=== PATIENT | male | born 1975 | race African-American/Black ===

== ENCOUNTER 2016-03-12 18:03 | Emergency (ER) | payer OTHER ==
[2016-03-12] MEDS ORDERED: IBUPROFEN 800 MG TABLET PO ONE (19:00)
[2016-03-12] MEDS ORDERED: DIPHENHYDRAMINE HCL 25 MG CAPSULE PO ONE (19:00)
--- NOTE | 2016-03-12 19:00 | ER Document Report ---
ED Medical Screen (RME) - General Stated Complaint: HEAD PAIN Mode of Arrival: Ambulatory Information source: Patient Notes: Pt presents with c/o migraine for his chronic migraines. Reports he is light sensitive. Denies f/n/v/d. Denies trauma. TRAVEL OUTSIDE OF THE [place] IN LAST 30 DAYS: No - Related Data Allergies/Adverse Reactions: No Known Allergies Allergy (Verified 12/20/15 15:56) Past Medical History - Past Medical History Cardiac Medical History: Reports: Hx Hypertension - 2 YRS AGO Denies: Hx Atrial Fibrillation, Hx Congestive Heart Failure, Hx Coronary Artery Disease, Hx DVT, Hx Heart Attack, Hx Hypercholesterolemia, Hx Peripheral Vascular Disease, Hx Pulmonary Embolism Pulmonary Medical History: Reports: Hx Asthma - SINCE 12 YRS OLD Neurological Medical History: Reports: Hx Migraine. Denies: Hx Cerebrovascular Accident, Hx Seizures Endocrine Medical History: Denies: Hx Diabetes Mellitus Type 1, Hx Diabetes Mellitus Type 2, Hx Graves' Disease, Hx Hyperthyroidism, Hx Hypothyroidism GI Medical History: Denies: Hx Hepatitis Psychiatric Medical History: Reports: Hx Attention Deficit Hyperactivity Disorder, Hx Post Traumatic Stress Disorder Infectious Medical History: Denies: Hx Hepatitis Past Surgical History: Reports: Hx Orthopedic Surgery - left knee X3, right knee , bilateral carpal tunnel - Immunizations Hx Diphtheria, Pertussis, Tetanus Vaccination: Yes Physical Exam - Vital signs Vitals: Temp Pulse Resp BP Pulse Ox 98.6 F 74 20 121/61 97 03/12/16 18:33 03/12/16 18:33 03/12/16 18:33 03/12/16 18:33 03/12/16 18:33 Course - Vital Signs Vital signs: Temp Pulse Resp BP Pulse Ox 98.6 F 74 20 121/61 97 03/12/16 18:33 03/12/16 18:33 03/12/16 18:33 03/12/16 18:33 03/12/16 18:33
[2016-03-12] MEDS ORDERED: ONDANSETRON HCL INJ/PF 4 MG/2 ML SDV IV ONE (21:36)
[2016-03-12] MEDS ORDERED: PROMETHAZINE HCL INJ 25 MG/1 ML VIAL IM ONE (21:36)
[2016-03-12] MEDS ORDERED: NORMAL SALINE 1000 ML 1,000 ML IV ONE (21:36)
[2016-03-12] MEDS ORDERED: PROCHLORPERAZINE EDISYLATE INJ 10 MG/2 ML VIAL IV ONE (21:36)
--- NOTE | 2016-03-12 21:36 | ER Document Report ---
ED Headache - General Mode of Arrival: Ambulatory Information source: Patient TRAVEL OUTSIDE OF THE [place] IN LAST 30 DAYS: No - HPI Patient complains to provider of: Headache, "Migraine" Patient reports: Occasional migraines Onset: Other - earlier this week Timing: Still present Associated symptoms: Other - see above - General Chief Complaint: Headache Stated Complaint: HEAD PAIN Notes: 40 year old male with history of migraines presents to the ED complaining of having his third migraine this week. Patient states that it has been some time since he had his last episode. Patient state that his headache is not better after receiving medication and claims that phenegran and dilaudid has helped in the past. Patient is complaining that he will not be able to sleep in his current state. Patient also complains of vomiting yesterday while at [employer]. ( ANTONIETTA HOOK) - Related Data Allergies/Adverse Reactions: No Known Allergies Allergy (Verified 03/12/16 19:00) Past Medical History - General Information source: Patient - Social History Smoking Status: Never Smoker Chew tobacco use (# tins/day): No Frequency of alcohol use: None Drug Abuse: None Family History: Reviewed & Not Pertinent, Other - Kidney stones Patient has suicidal ideation: No Patient has homicidal ideation: No - Past Medical History Cardiac Medical History: Reports: Hx Hypertension - 2 YRS AGO Pulmonary Medical History: Reports: Hx Asthma - SINCE 12 YRS OLD Neurological Medical History: Reports: Hx Migraine Psychiatric Medical History: Reports: Hx Attention Deficit Hyperactivity Disorder, Hx Post Traumatic Stress Disorder Past Surgical History: Reports: Hx Orthopedic Surgery - left knee X3, right knee , bilateral carpal tunnel - Immunizations Hx Diphtheria, Pertussis, Tetanus Vaccination: Yes Review of Systems - Review of Systems Constitutional: No symptoms reported EENT: No symptoms reported Cardiovascular: No symptoms reported Respiratory: No symptoms reported Gastrointestinal: See HPI, Vomiting Genitourinary: No symptoms reported Male Genitourinary: No symptoms reported Musculoskeletal: No symptoms reported Skin: No symptoms reported Hematologic/Lymphatic: No symptoms reported Neurological/Psychological: See HPI, Headaches - "migraine" -: Yes All other systems reviewed and negative Physical Exam - Vital signs Interpretation: Normal - General General appearance: Alert, Other - appears uncomfortable In distress: None - HEENT Head: Normocephalic, Atraumatic Eyes: Normal Extraocular movements intact: Yes Pupils: PERRL - Respiratory Respiratory status: No respiratory distress Breath sounds: Normal - Cardiovascular Rhythm: Regular Heart sounds: Normal auscultation - Abdominal Inspection: Normal - Back Back: Normal - Extremities General upper extremity: Normal inspection, Normal ROM General lower extremity: Normal inspection, Normal ROM - Neurological Neuro grossly intact: Yes Cognition: Normal Orientation: AAOx4 [place] Coma Scale Eye Opening: Spontaneous [place] Coma Scale Verbal: Oriented [place] Coma Scale Motor: Obeys Commands [place] Coma Scale Total: 15 Speech: Normal - Psychological Associated symptoms: Normal affect, Normal mood - Skin Skin Temperature: Warm Skin Moisture: Dry Skin Color: Normal Course - Re-evaluation Re-evalutation: 03/12/16 22:31 Patient feels better after medication. This is his typical migraine syndrome. No headache at this time. Patient will be discharged home and is to take Zofran , Reglan, Compazine as needed for headache. She is to follow-up with his doctor. Stable for discharge. (DOMI FUENTES) - Vital Signs Vital signs: Temp Pulse Resp BP Pulse Ox 97.4 F 51 L 16 112/63 95 03/12/16 23:19 03/12/16 23:19 03/12/16 23:19 03/12/16 23:19 03/12/16 23:19 (ANTONIETTA HOOK) (DOMI FUENTES) Discharge - Discharge Clinical Impression: Headache Qualifiers: Headache type: unspecified Headache chronicity pattern: acute headache Intractability: not intractable Qualified Code(s): R51 - Headache Condition: Stable Disposition: HOME, SELF-CARE Instructions: Headache ([facility]) Prescriptions: Metoclopramide HCl [Reglan 10 mg Tablet] 1 - 2 tab PO ASDIR PRN #25 tablet PRN Reason: Ondansetron [Zofran Odt 4 mg Tablet] 1 - 2 tab PO Q4H PRN #15 tab.rapdis PRN Reason: For Nausea/Vomiting Prochlorperazine Maleate [Compazine 10 mg Tablet] 10 mg PO ASDIR PRN #10 tablet PRN Reason: Scribe Attestation: 03/13/16 03:24 I personally performed the services described in the documentation, reviewed and edited the documentation which was dictated to the scribe in my presence, and it accurately records my words and actions. (DOMI FUENTES) Scribe Documentation - Scribe Written by Ashiaibe:: David Wyatt, 03/12/2016 21:43 acting as scribe for :: Susana
[2016-03-12 23:21] VITALS: BP 112/63
== END 2016-03-12 23:21 | disposition home or self-care (01) ==
LOC: ER 18:03
DX: G43.909 Migraine, unspecified, not intractable, without status migrainosus (principal); I10 Essential (primary) hypertension; J45.909 Unspecified asthma, uncomplicated
CPT/HCPCS: 99283; 96372; 96361; 96374; 96375; J0780; J2550; J2405; J7030

== ENCOUNTER 2016-03-20 03:24 | Emergency (ER) | payer OTHER ==
[2016-03-20 06:01] LABS: ABSOLUTE BASOPHILS # (AUTO) 0.1 10^3/uL (0.0-0.2); ABSOLUTE EOSINOPHILS # (AUTO) 0.1 10^3/uL (0.0-0.6); ABSOLUTE LYMPHOCYTES (AUTO) 1.7 10^3/uL (0.5-4.7); ABSOLUTE MONOCYTES (AUTO) 0.7 10^3/uL (0.1-1.4); ABSOLUTE NEUT (AUTO) 5.3 10^3/uL (1.7-8.2); BASOPHILS % (AUTO) 0.9 % (0-2); EOSINOPHILS % (AUTO) 1.1 % (0-6); HEMATOCRIT 42.3 % (37.9-51.0); HGB HCT DIFFERENCE -0.3; LYMPHOCYTES % (AUTO) 21.5 % (13-45); MEAN CORPUSCULAR HEMOGLOBIN 29.4 pg (27.0-33.4); MEAN CORPUSCULAR VOLUME 89 fl (80-97); RED BLOOD COUNT 4.75 10^6/uL (4.35-5.55); RED CELL DISTRIBUTION WIDTH 14.2 % (11.5-14.0); SEGMENTED NEUTROPHILS % (AUTO) 67.5 % (42-78); WHITE BLOOD COUNT 7.9 10^3/uL (4.0-10.5)
[2016-03-20 06:11] LABS: APPEARANCE,URINE CLEAR; BILIRUBIN,URINE NEGATIVE (NEGATIVE); GLUCOSE, URINE NEGATIVE (NEGATIVE); KETONES,URINE NEGATIVE (NEGATIVE); LEUKOCYTE ESTERASE,URINE NEGATIVE (NEGATIVE); NITRITE,URINE NEGATIVE (NEGATIVE); PROTEIN,URINE NEGATIVE (NEGATIVE); URINE SPECIFIC GRAVITY 1.016; UROBILINOGEN,URINE NEGATIVE mg/dL (<2.0)
[2016-03-20 06:15] LABS: ALANINE AMINOTRANSFERASE 64 U/L (21-72); ALBUMIN 4.8 g/dL (3.5-5.0); ALKALINE PHOSPHATASE 73 U/L (38-126); ANION GAP 11 (5-19); ASPARTATE AMINO TRANSFERASE 47 U/L (17-59); BILIRUBIN,TOTAL 0.9 mg/dL (0.2-1.3); BLOOD UREA NITROGEN 20 mg/dL (7-20); CARBON DIOXIDE 26 mmol/L (22-30); CHLORIDE 101 mmol/L (98-107); CREATININE RESULT 1.37 mg/dL (0.52-1.25); GLUCOSE 76 mg/dL (75-110); LIPASE 85.9 U/L (23-300); POTASSIUM 5.1 mmol/L (3.6-5.0); SODIUM 138.4 mmol/L (137-145); TOTAL PROTEIN 7.9 g/dL (6.3-8.2)
[2016-03-20] MEDS ORDERED: KETOROLAC TROMETHAMINE 60 MG/2 ML SDV IM ONE (06:29)
--- NOTE | 2016-03-20 06:31 | ER Document Report ---
ED General - General Chief Complaint: Abdominal Pain Stated Complaint: ABDOMINAL PAIN Mode of Arrival: Ambulatory Information source: Patient Notes: 40-year-old male history of kidney stones presents with complaints of right flank pain rating to his [facility]. Patient denies any fevers chills . pt admits ot nausea and vomiting with diarrhea . Patient has had multiple similar episodes for which a diagnosis has not been found notes he is supposed to have follow-up in April TRAVEL OUTSIDE OF THE [place] IN LAST 30 DAYS: No - HPI Onset: Just prior to arrival Onset/Duration: Sudden Quality of pain: Sharp Severity: Mild Pain Level: 1 Associated symptoms: Diarrhea, Nausea, Vomiting Exacerbated by: Denies Relieved by: Denies Similar symptoms previously: Yes Recently seen / treated by doctor: Yes - Related Data Allergies/Adverse Reactions: No Known Allergies Allergy (Verified 03/12/16 19:00) Past Medical History - Social History Smoking Status: Never Smoker Cigarette use (# per day): No Chew tobacco use (# tins/day): No Smoking Education Provided: No Frequency of alcohol use: None Drug Abuse: None Family History: Reviewed & Not Pertinent, Other - Kidney stones Patient has suicidal ideation: No Patient has homicidal ideation: No - Past Medical History Cardiac Medical History: Reports: Hx Hypertension - 2 YRS AGO Denies: Hx Atrial Fibrillation, Hx Congestive Heart Failure, Hx Coronary Artery Disease, Hx DVT, Hx Heart Attack, Hx Hypercholesterolemia, Hx Peripheral Vascular Disease, Hx Pulmonary Embolism Pulmonary Medical History: Reports: Hx Asthma - SINCE 12 YRS OLD Neurological Medical History: Reports: Hx Migraine. Denies: Hx Cerebrovascular Accident, Hx Seizures Endocrine Medical History: Denies: Hx Diabetes Mellitus Type 1, Hx Diabetes Mellitus Type 2, Hx Graves' Disease, Hx Hyperthyroidism, Hx Hypothyroidism Renal/ Medical History: Denies: Hx Peritoneal Dialysis GI Medical History: Denies: Hx Hepatitis Psychiatric Medical History: Reports: Hx Attention Deficit Hyperactivity Disorder, Hx Post Traumatic Stress Disorder Infectious Medical History: Denies: Hx Hepatitis Past Surgical History: Reports: Hx Orthopedic Surgery - left knee X3, right knee , bilateral carpal tunnel - Immunizations Hx Diphtheria, Pertussis, Tetanus Vaccination: Yes Review of Systems - Review of Systems Notes: REVIEW OF SYSTEMS: CONSTITUTIONAL : Denies fever, chills, or sweats. Denies recent illness. EENT: Denies eye, ear, throat, or mouth pain or symptoms. Denies nasal or sinus congestion or discharge. Denies throat, tongue, or mouth swelling or difficulty swallowing. CARDIOVASCULAR: Denies chest pain. Denies palpitations or racing or irregular heart beat. Denies ankle edema. RESPIRATORY: Denies cough, cold, or chest congestion. Denies shortness of breath, difficulty breathing, or wheezing. GASTROINTESTINAL: Admits to abdominal pain nausea vomiting diarrhea GENITOURINARY: Denies difficulty urinating, painful urination, burning, frequency, blood in urine, or discharge. MUSCULOSKELETAL: Denies back or neck pain or stiffness. Denies joint pain or swelling. SKIN: Denies rash, lesions or sores. HEMATOLOGIC : Denies easy bruising or bleeding. LYMPHATIC: Denies swollen, enlarged glands. NEUROLOGICAL: Denies confusion or altered mental status. Denies passing out or loss of consciousness. Denies dizziness or lightheadedness. Denies headache. Denies weakness or paralysis or loss of use of either side. Denies problems with gait or speech. Denies sensory loss, numbness, or tingling. Denies seizures. PSYCHIATRIC: Denies anxiety or stress. Denies depression, suicidal ideation, or homicidal ideation. ALL OTHER SYSTEMS REVIEWED AND NEGATIVE. Dictation was performed using [employer] voice recognition software PHYSICAL EXAMINATION: GENERAL: Well-appearing, well-nourished and in very mild distress HEAD: Atraumatic, normocephalic. EYES: Pupils equal round and reactive to light, extraocular movements intact, sclera anicteric, conjunctiva are normal. ENT: Nares patent, oropharynx clear without exudates. Moist mucous membranes. NECK: Normal range of motion, supple without lymphadenopathy LUNGS: Breath sounds clear to auscultation bilaterally and equal. No wheezes rales or rhonchi. HEART: Regular rate and rhythm without murmurs ABDOMEN: Soft, nontender, nondistended abdomen. No guarding, no rebound. No masses appreciated. Musculoskeletal: Normal range of motion, no pitting or edema. No cyanosis. NEUROLOGICAL: Cranial nerves grossly intact. Normal speech, normal gait. Normal sensory, motor exams PSYCH: Normal mood, normal affect. SKIN: Warm, Dry, normal turgor, no rashes or lesions noted. Course - Re-evaluation Re-evalutation: 03/20/16 06:31 Physical examination notes no acute abnormality, lab work notes again no signs of any infectious process or kidney stone. CT will be repeated again 03/20/16 07:46 CT again was negative, patient has colonoscopy and endoscopy planned I believe it is important for him to follow-up with this as it does not appear to have any other issues After performing a Medical Screening Examination, I estimate there is LOW risk for ACUTE APPENDICITIS, BOWEL OBSTRUCTION, ACUTE CHOLECYSTITIS, PERFORATED DIVERTICULITIS, INCARCERATED HERNIA, PANCREATITIS, or PERFORATED ULCER, thus I consider the discharge disposition reasonable. Also, there is no evidence or peritonitis, sepsis, or toxicity. The patient and I have discussed the diagnosis and risks, and we agree with discharging home with close follow-up with the understanding that symptoms and presentations can change. We also discussed returning to the Emergency Department immediately if new or worsening symptoms occur. We have discussed the symptoms which are most concerning (e.g., bloody stool, fever, changing or worsening pain, intractable vomiting - standard verbal up date) that necessitate immediate return. - Laboratory Result Diagrams: 03/20/16 05:49 03/20/16 05:49 Laboratory results interpreted by me: 03/20/16 03/20/16 03/20/16 05:49 05:49 05:49 RDW 14.2 H Potassium 5.1 H Creatinine 1.37 H Est GFR (Non-Af Amer) 58 L Urine Ascorbic Acid 20 H - Diagnostic Test Radiology reviewed: Image reviewed, Reports reviewed Discharge - Discharge Clinical Impression: Nausea vomiting and diarrhea Abdominal pain Qualifiers: Abdominal location: generalized Qualified Code(s): R10.84 - Generalized abdominal pain Condition: Stable Disposition: HOME, SELF-CARE Instructions: Abdominal Pain ([facility]) Additional Instructions: Please excuse patient's from work on 03/20/2016 Prescriptions: Oxycodone HCl/Acetaminophen [Percocet 5-325 mg Tablet] 1 - 2 tab PO Q4H PRN #15 tablet PRN Reason: Promethazine HCl [Phenergan 25 mg Tablet] 1 - 2 tab PO Q6H PRN #15 tablet PRN Reason: Referrals: WINDY RAMÍREZ MD [ACTIVE STAFF] - Follow up tomorrow
[2016-03-20] MEDS ORDERED: METOCLOPRAMIDE HCL INJ/PF 10 MG/2 ML SDV IV ONE (06:35)
[2016-03-20] MEDS ORDERED: HYDROMORPHONE HCL INJ/PF 2 MG/ML AMPULE IV ONE (07:48)
[2016-03-20 08:31] VITALS: BP 140/97
== END 2016-03-20 08:41 | disposition home or self-care (01) ==
LOC: ER 03:24
DX: R10.84 Generalized abdominal pain (principal); R11.2 Nausea with vomiting, unspecified; R19.7 Diarrhea, unspecified; I10 Essential (primary) hypertension; J45.909 Unspecified asthma, uncomplicated; Z87.442 Personal history of urinary calculi
CPT/HCPCS: 99284; 96372; 96374; 96375; 36415; 83690; 85025; 80053; 81001; 83605; 76380; J1885; J2765; J1170

== ENCOUNTER 2016-04-17 15:56 | Emergency (ER) | payer OTHER ==
--- NOTE | 2016-04-17 16:02 | ER Document Report ---
ED Medical Screen (RME) - General Stated Complaint: HEADACHE,NAUSEA Mode of Arrival: Ambulatory Information source: Patient Notes: c/o cough, headache, body aches, fever, chills for the past 2 days which he states has worsened and is now complaining of specks of blood in his mucus. He also endorses lightheadedness when he coughs. He has tried OTC cough medications which is not providing relief or tylenol which is not helping either. Tmax 102 at 1430 - he did take tylenol, afebrile in triage. Endorses sick contacts (flu at home), no recent travel. I have greeted and performed a rapid initial assessment of this patient. A comprehensive ED assessment and evaluation of the patient, analysis of test results and completion of the medical decision making process will be conducted by additional ED providers. TRAVEL OUTSIDE OF THE [place] IN LAST 30 DAYS: No - Related Data Allergies/Adverse Reactions: No Known Allergies Allergy (Verified 04/17/16 15:59) Past Medical History - Past Medical History Cardiac Medical History: Reports: Hx Hypertension - 2 YRS AGO Denies: Hx Atrial Fibrillation, Hx Congestive Heart Failure, Hx Coronary Artery Disease, Hx DVT, Hx Heart Attack, Hx Hypercholesterolemia, Hx Peripheral Vascular Disease, Hx Pulmonary Embolism Pulmonary Medical History: Reports: Hx Asthma - SINCE 12 YRS OLD Neurological Medical History: Reports: Hx Migraine. Denies: Hx Cerebrovascular Accident, Hx Seizures Endocrine Medical History: Denies: Hx Diabetes Mellitus Type 1, Hx Diabetes Mellitus Type 2, Hx Graves' Disease, Hx Hyperthyroidism, Hx Hypothyroidism Renal/ Medical History: Denies: Hx Peritoneal Dialysis GI Medical History: Denies: Hx Hepatitis Psychiatric Medical History: Reports: Hx Attention Deficit Hyperactivity Disorder, Hx Post Traumatic Stress Disorder Infectious Medical History: Denies: Hx Hepatitis Past Surgical History: Reports: Hx Orthopedic Surgery - left knee X3, right knee , bilateral carpal tunnel - Immunizations Hx Diphtheria, Pertussis, Tetanus Vaccination: Yes Physical Exam - Notes Notes: Lungs: CTAB without wheezing
--- NOTE | 2016-04-17 17:07 | ER Document Report ---
ED General - General Chief Complaint: Flu Symptoms Stated Complaint: HEADACHE,NAUSEA Mode of Arrival: Ambulatory TRAVEL OUTSIDE OF THE [place] IN LAST 30 DAYS: No - HPI Patient complains to provider of: myalgias cough nausea Notes: Patient coming in for evaluation of headache myalgias nausea patient states multiple people on been diagnosed a flu. A santana states also is having fevers and chills at home. Patient states he has been trying [id number] medications with no relief of his symptoms. Patient denies any recent antibiotics denies any recent travel. Patient does not smoke does not drink does not use drugs. Upon my evaluation patient is sitting currently and with a dry cough. - Related Data Allergies/Adverse Reactions: No Known Allergies Allergy (Verified 04/17/16 15:59) Past Medical History - General Information source: Patient - Social History Smoking Status: Never Smoker Chew tobacco use (# tins/day): No Frequency of alcohol use: None Drug Abuse: None Family History: Reviewed & Not Pertinent, Other - Kidney stones Patient has suicidal ideation: No Patient has homicidal ideation: No - Past Medical History Cardiac Medical History: Reports: Hx Hypertension - 2 YRS AGO Denies: Hx Atrial Fibrillation, Hx Congestive Heart Failure, Hx Coronary Artery Disease, Hx DVT, Hx Heart Attack, Hx Hypercholesterolemia, Hx Peripheral Vascular Disease, Hx Pulmonary Embolism Pulmonary Medical History: Reports: Hx Asthma - SINCE 12 YRS OLD Neurological Medical History: Reports: Hx Migraine. Denies: Hx Cerebrovascular Accident, Hx Seizures Endocrine Medical History: Denies: Hx Diabetes Mellitus Type 1, Hx Diabetes Mellitus Type 2, Hx Graves' Disease, Hx Hyperthyroidism, Hx Hypothyroidism Renal/ Medical History: Denies: Hx Peritoneal Dialysis GI Medical History: Denies: Hx Hepatitis Psychiatric Medical History: Reports: Hx Attention Deficit Hyperactivity Disorder, Hx Post Traumatic Stress Disorder Infectious Medical History: Denies: Hx Hepatitis Past Surgical History: Reports: Hx Orthopedic Surgery - left knee X3, right knee , bilateral carpal tunnel - Immunizations Hx Diphtheria, Pertussis, Tetanus Vaccination: Yes Review of Systems - Review of Systems Constitutional: Fever, Malaise, Other - Myalgias EENT: No symptoms reported Cardiovascular: No symptoms reported Respiratory: Cough Gastrointestinal: No symptoms reported Genitourinary: No symptoms reported Male Genitourinary: No symptoms reported Musculoskeletal: No symptoms reported Skin: No symptoms reported Hematologic/Lymphatic: No symptoms reported Neurological/Psychological: No symptoms reported -: Yes All other systems reviewed and negative Physical Exam - Vital signs Vitals: Temp Pulse Resp BP Pulse Ox 99.8 F 103 H 18 148/100 H 97 04/17/16 16:00 04/17/16 16:00 04/17/16 16:00 04/17/16 16:00 04/17/16 16:00 Interpretation: Normal - General General appearance: Appears well, Alert - HEENT Head: Normocephalic, Atraumatic Eyes: Normal Pupils: PERRL - Respiratory Respiratory status: No respiratory distress Chest status: Nontender Breath sounds: Normal, Nonproductive cough Chest palpation: Normal - Cardiovascular Rhythm: Regular Heart sounds: Normal auscultation Murmur: No - Abdominal Inspection: Normal Distension: No distension Bowel sounds: Normal Tenderness: Nontender Organomegaly: No organomegaly - Back Back: Normal, Nontender - Extremities General upper extremity: Normal inspection, Nontender, Normal color, Normal ROM , Normal temperature General lower extremity: Normal inspection, Nontender, Normal color, Normal ROM , Normal temperature, Normal weight bearing. No: Boris's sign - Neurological Neuro grossly intact: Yes Cognition: Normal Orientation: AAOx4 [place] Coma Scale Eye Opening: Spontaneous Arron Coma Scale Verbal: Oriented [place] Coma Scale Motor: Obeys Commands Arron Coma Scale Total: 15 Speech: Normal Motor strength normal: LUE, RUE, LLE, RLE Sensory: Normal - Psychological Associated symptoms: Normal affect, Normal mood - Skin Skin Temperature: Warm Skin Moisture: Dry Skin Color: Normal Course - Re-evaluation Re-evalutation: 04/17/16 20:04 Patient's evaluation is consistent with influenza. Patient will be a medication to help his pain is cough and is nausea. Patient was grateful for his care was encouraged to drinking of fluids patient will be discharged home. - Vital Signs Vital signs: Temp Pulse Resp BP Pulse Ox 99.4 F 92 20 144/84 H 97 04/17/16 17:15 04/17/16 17:15 04/17/16 17:15 04/17/16 17:15 04/17/16 17:15 Discharge - Discharge Clinical Impression: Influenza Condition: Good Disposition: HOME, SELF-CARE Instructions: Influenza ([facility]) [id number], Cough Suppressant & Expectorant Medications, Vomiting ([facility]) Prescriptions: Guaifenesin/Codeine Phosphate [Codeine-Guaifen 10-100 mg/5 ml] 5 ml PO Q6 #120 liquid Ondansetron [Zofran Odt 4 mg Tablet] 1 tab PO Q4H PRN #20 tab.rapdis PRN Reason: For Nausea/Vomiting Forms: Return to Work
[2016-04-17 17:24] VITALS: BP 144/84
== END 2016-04-17 17:15 | disposition home or self-care (01) ==
LOC: ER 15:56
DX: J11.1 Influenza due to unidentified influenza virus with other respiratory manifestations (principal); R51 Headache; M79.1 Myalgia; R11.0 Nausea; R50.9 Fever, unspecified; R05 Cough; R53.81 Other malaise; I10 Essential (primary) hypertension; J45.909 Unspecified asthma, uncomplicated
CPT/HCPCS: 71020; 99283

== ENCOUNTER 2016-12-01 16:26 | Emergency (ER) | payer OTHER ==
[2016-12-01] MEDS ORDERED: PREDNISONE 20 MG TABLET PO ONE (16:48)
[2016-12-01] MEDS ORDERED: DIPHENHYDRAMINE HCL 25 MG CAPSULE PO ONE (16:49)
[2016-12-01] MEDS ORDERED: OXYCODONE-ACETAMINOPHEN 5-325 MG TABLET PO ONE (16:49)
--- NOTE | 2016-12-01 16:50 | ER Document Report ---
ED Medical Screen (RME) - General Chief Complaint: Bee Sting Stated Complaint: WASP STING/POSSIBLE REACTION Time Seen by Provider: 12/01/16 16:48 Notes: Patient states he was stung by yellow jackets approximate 1 hour ago. He states that when he was 13 his "throat closed" when he was stung by B. Therefore a panic today when he was stung. He does not have any significant shortness of breath currently nor does he have any trouble swallowing or breathing at this time. TRAVEL OUTSIDE OF THE [place] IN LAST 30 DAYS: No - Related Data Allergies/Adverse Reactions: bee stings Allergy (Uncoded 12/01/16 16:27) Past Medical History - Social History Chew tobacco use (# tins/day): No Frequency of alcohol use: None Drug Abuse: None - Past Medical History Cardiac Medical History: Reports: Hx Hypertension - 2 YRS AGO Denies: Hx Atrial Fibrillation, Hx Congestive Heart Failure, Hx Coronary Artery Disease, Hx DVT, Hx Heart Attack, Hx Hypercholesterolemia, Hx Peripheral Vascular Disease, Hx Pulmonary Embolism Pulmonary Medical History: Reports: Hx Asthma - SINCE 12 YRS OLD Neurological Medical History: Reports: Hx Migraine. Denies: Hx Cerebrovascular Accident, Hx Seizures Endocrine Medical History: Denies: Hx Diabetes Mellitus Type 1, Hx Diabetes Mellitus Type 2, Hx Graves' Disease, Hx Hyperthyroidism, Hx Hypothyroidism Renal/ Medical History: Denies: Hx Peritoneal Dialysis GI Medical History: Denies: Hx Hepatitis Psychiatric Medical History: Reports: Hx Attention Deficit Hyperactivity Disorder, Hx Post Traumatic Stress Disorder Infectious Medical History: Denies: Hx Hepatitis Past Surgical History: Reports: Hx Orthopedic Surgery - left knee X3, right knee , bilateral carpal tunnel - Immunizations Hx Diphtheria, Pertussis, Tetanus Vaccination: Yes History of Influenza Vaccine for 11/2016 - 04/2017 Season: No Physical Exam - Vital signs Vitals: Temp Pulse Resp BP Pulse Ox 98.9 F 22 L 22 H 124/72 98 12/01/16 16:28 12/01/16 16:28 12/01/16 16:28 12/01/16 16:28 12/01/16 16:28 Course - Vital Signs Vital signs: Temp Pulse Resp BP Pulse Ox 98.9 F 22 L 22 H 124/72 98 12/01/16 16:28 12/01/16 16:28 12/01/16 16:28 12/01/16 16:28 12/01/16 16:28
--- NOTE | 2016-12-01 19:50 | ER Document Report ---
ED General - General Chief Complaint: Bee Sting Stated Complaint: WASP STING/POSSIBLE REACTION Time Seen by Provider: 12/01/16 16:48 Notes: Patient complains of low back pain as well as diffuse extremity pain. He states it is an ache as well as a burning sensation. Pt states he fell out of a tree just before arrival and landed in a yellow jacket nest. He states he was stung multiple times. He states he has had his "throat close" from bee sting when he was 13. Pain is severe and constant. It radiates throughout his body. Nothing makes it better or worse. It is sharp and burning. TRAVEL OUTSIDE OF THE [place] IN LAST 30 DAYS: No - Related Data Allergies/Adverse Reactions: bee stings Allergy (Uncoded 12/01/16 16:27) Past Medical History - General Information source: Patient - Social History Smoking Status: Never Smoker Chew tobacco use (# tins/day): No Frequency of alcohol use: None Drug Abuse: None Family History: Reviewed & Not Pertinent, Other - Kidney stones Patient has suicidal ideation: No - Past Medical History Cardiac Medical History: Reports: Hx Hypertension - 2 YRS AGO Denies: Hx Atrial Fibrillation, Hx Congestive Heart Failure, Hx Coronary Artery Disease, Hx DVT, Hx Heart Attack, Hx Hypercholesterolemia, Hx Peripheral Vascular Disease, Hx Pulmonary Embolism Pulmonary Medical History: Reports: Hx Asthma - SINCE 12 YRS OLD Neurological Medical History: Reports: Hx Migraine. Denies: Hx Cerebrovascular Accident, Hx Seizures Endocrine Medical History: Denies: Hx Diabetes Mellitus Type 1, Hx Diabetes Mellitus Type 2, Hx Graves' Disease, Hx Hyperthyroidism, Hx Hypothyroidism Renal/ Medical History: Denies: Hx Peritoneal Dialysis GI Medical History: Denies: Hx Hepatitis Psychiatric Medical History: Reports: Hx Attention Deficit Hyperactivity Disorder, Hx Post Traumatic Stress Disorder Infectious Medical History: Denies: Hx Hepatitis Past Surgical History: Reports: Hx Orthopedic Surgery - left knee X3, right knee , bilateral carpal tunnel - Immunizations Hx Diphtheria, Pertussis, Tetanus Vaccination: Yes Review of Systems - Review of Systems Constitutional: denies: Chills, Fever Cardiovascular: Chest pain Respiratory: denies: Cough, Short of breath Skin: Lesions, Rash -: Yes All other systems reviewed and negative Physical Exam - Vital signs Vitals: Temp Pulse Resp BP Pulse Ox 98.9 F 22 L 22 H 124/72 98 12/01/16 16:28 12/01/16 16:28 12/01/16 16:28 12/01/16 16:28 12/01/16 16:28 Interpretation: Tachycardic - General General appearance: Appears well, Alert - HEENT Head: Normocephalic, Atraumatic Eyes: Normal Pupils: PERRL Mouth/Lips: Normal Mucous membranes: Moist Pharynx: Normal Neck: Normal - Respiratory Respiratory status: No respiratory distress Chest status: Nontender Breath sounds: Normal Chest palpation: Normal - Cardiovascular Rhythm: Tachycardia Heart sounds: Normal auscultation Murmur: No - Abdominal Inspection: Normal Distension: No distension Bowel sounds: Normal Tenderness: Nontender Organomegaly: No organomegaly - Back Back: Tender - Diffuse lumbar tenderness to palpation. - Extremities General upper extremity: Normal inspection, Nontender, Normal color, Normal ROM , Normal temperature General lower extremity: Normal inspection, Nontender, Normal color, Normal ROM , Normal temperature, Normal weight bearing. No: Boris's sign - Neurological Neuro grossly intact: Yes Cognition: Normal Orientation: AAOx4 Arron Coma Scale Eye Opening: Spontaneous Arron Coma Scale Verbal: Oriented Arron Coma Scale Motor: Obeys Commands Arron Coma Scale Total: 15 Speech: Normal Motor strength normal: LUE, RUE, LLE, RLE Sensory: Normal - Psychological Associated symptoms: Normal affect, Normal mood - Skin Skin Temperature: Warm Skin Moisture: Dry Skin Color: Other - Patient has multiple areas of abrasions as well as a maculopapular rash from the bee stings. Course - Re-evaluation Re-evalutation: 12/01/16 19:52 Patient reevaluated approximate 7:50 PM. No evidence of any airway compromise or significant intraoral edema. Respirations are clear. Patient's vital signs are unremarkable. - Vital Signs Vital signs: Temp Pulse Resp BP Pulse Ox 98.9 F 22 L 22 H 124/72 98 12/01/16 16:28 12/01/16 16:28 12/01/16 16:28 12/01/16 16:28 12/01/16 16:28 Discharge - Discharge Clinical Impression: Abrasions of multiple sites Bee sting reaction Qualifiers: Encounter type: initial encounter Injury intent: accidental or unintentional Qualified Code(s): T63.441A - Toxic effect of venom of bees, accidental ( unintentional), initial encounter Condition: Stable Disposition: HOME, SELF-CARE Instructions: Insect Sting ([facility]), Abrasions ([facility]) Additional Instructions: Please call your primary care provider as soon as possible to arrange follow-up Please carry an EpiPen with you at all times. Prescriptions: Epinephrine [Epipen] 0.3 mg IJ ONCE PRN #1 auto.injct PRN Reason: Shortness Of Breath Oxycodone HCl/Acetaminophen [Percocet 5-325 mg Tablet] 1 - 2 tab PO Q6 #15 tablet Forms: Elevated Blood Pressure, Return to Work
[2016-12-01 20:15] VITALS: BP 140/80
== END 2016-12-01 20:15 | disposition home or self-care (01) ==
LOC: ER 16:26
DX: T63.441A Toxic effect of venom of bees, accidental (unintentional), initial encounter (principal); M54.5 Low back pain; M79.609 Pain in unspecified limb; R21 Rash and other nonspecific skin eruption; Y92.9 Unspecified place or not applicable; W14.XXXA Fall from tree, initial encounter
CPT/HCPCS: 99282; J7512

== ENCOUNTER 2017-02-26 15:29 | Emergency (ER) | payer OTHER ==
--- NOTE | 2017-02-26 18:51 | EKG REPORT ---
SEVERITY:- BORDERLINE ECG - SINUS RHYTHM VENTRICULAR PREMATURE COMPLEX PROBABLE LEFT ATRIAL ABNORMALITY : Confirmed by: Mina Valdez MD 26-Feb-2017 18:50:51
[2017-02-26] MEDS ORDERED: OXYCODONE-ACETAMINOPHEN 5-325 MG TABLET PO ONE (19:28)
--- NOTE | 2017-02-26 19:29 | ER Document Report ---
ED Medical Screen (RME) - General Chief Complaint: Arm Problem Stated Complaint: ARM PAIN Time Seen by Provider: 02/26/17 19:21 Notes: 41-year-old male patient reports right arm hurts too much to try to abduct the shoulder. He has a known cervical disc disease and is supposed to see a spine surgeon in the next few days about surgery. He had an epidural injection done 3 days ago and states it hurts much worse at the site and now cannot lift the arm without pain. He also states he has had bad heart palpitations. I have greeted and performed a rapid initial assessment of this patient. A comprehensive ED assessment and evaluation of the patient, analysis of test results and completion of the medical decision making process will be conducted by additional ED providers. TRAVEL OUTSIDE OF THE [place] IN LAST 30 DAYS: No - Related Data Allergies/Adverse Reactions: bee stings Allergy (Uncoded 02/26/17 15:30) Past Medical History - Past Medical History Cardiac Medical History: Reports: Hx Hypertension - 2 YRS AGO Denies: Hx Atrial Fibrillation, Hx Congestive Heart Failure, Hx Coronary Artery Disease, Hx DVT, Hx Heart Attack, Hx Hypercholesterolemia, Hx Peripheral Vascular Disease, Hx Pulmonary Embolism Pulmonary Medical History: Reports: Hx Asthma - SINCE 12 YRS OLD Neurological Medical History: Reports: Hx Migraine. Denies: Hx Cerebrovascular Accident, Hx Seizures Endocrine Medical History: Denies: Hx Diabetes Mellitus Type 1, Hx Diabetes Mellitus Type 2, Hx Graves' Disease, Hx Hyperthyroidism, Hx Hypothyroidism Renal/ Medical History: Denies: Hx Peritoneal Dialysis GI Medical History: Denies: Hx Hepatitis Psychiatric Medical History: Reports: Hx Attention Deficit Hyperactivity Disorder, Hx Post Traumatic Stress Disorder Infectious Medical History: Denies: Hx Hepatitis Past Surgical History: Reports: Hx Orthopedic Surgery - left knee X3, right knee , bilateral carpal tunnel - Immunizations Hx Diphtheria, Pertussis, Tetanus Vaccination: Yes History of Influenza Vaccine for 11/2016 - 04/2017 Season: No Physical Exam - Vital signs Vitals: Temp Pulse Resp BP Pulse Ox 98.6 F 93 14 127/73 H 95 02/26/17 15:35 02/26/17 15:35 02/26/17 15:35 02/26/17 15:35 02/26/17 15:35 Course - Vital Signs Vital signs: Temp Pulse Resp BP Pulse Ox 98.3 F 87 18 129/79 H 99 02/26/17 19:22 02/26/17 19:22 02/26/17 19:22 02/26/17 19:22 02/26/17 19:22
[2017-02-26 20:15] LABS: ABSOLUTE EOSINOPHILS # (AUTO) 0.1 10^3/uL (0.0-0.6); ABSOLUTE LYMPHOCYTES (AUTO) 3.2 10^3/uL (0.5-4.7); ABSOLUTE MONOCYTES (AUTO) 0.6 10^3/uL (0.1-1.4); BASOPHILS % (AUTO) 0.6 % (0-2); EOSINOPHILS % (AUTO) 1.1 % (0-6); HEMATOCRIT 42.3 % (37.9-51.0); HEMOGLOBIN 14.2 g/dL (13.5-17.0); LYMPHOCYTES % (AUTO) 46.5 % (13-45); MEAN CORPUSCULAR HEMOGLOBIN 29.5 pg (27.0-33.4); MEAN CORPUSCULAR HGB CONC 33.6 g/dL (32.0-36.0); MEAN CORPUSCULAR VOLUME 88 fl (80-97); MONOCYTES % (AUTO) 8.1 % (3-13); PLATELET COUNT 258 10^3/uL (150-450); RED CELL DISTRIBUTION WIDTH 13.7 % (11.5-14.0); SEGMENTED NEUTROPHILS % (AUTO) 43.7 % (42-78); TOTAL CELLS COUNTED % (AUTO) 100 %; WHITE BLOOD COUNT 6.9 10^3/uL (4.0-10.5)
[2017-02-26 20:38] LABS: ALANINE AMINOTRANSFERASE 54 U/L (21-72); ALBUMIN 4.3 g/dL (3.5-5.0); ALKALINE PHOSPHATASE 68 U/L (38-126); ANION GAP 12 (5-19); ASPARTATE AMINO TRANSFERASE 35 U/L (17-59); BILIRUBIN,DIRECT 0.2 mg/dL (0.0-0.4); BILIRUBIN,TOTAL 0.4 mg/dL (0.2-1.3); BLOOD UREA NITROGEN 25 mg/dL (7-20); CALCIUM 9.9 mg/dL (8.4-10.2); CARBON DIOXIDE 27 mmol/L (22-30); CHLORIDE 102 mmol/L (98-107); GLUCOSE 80 mg/dL (75-110); SODIUM 140.6 mmol/L (137-145)
--- NOTE | 2017-02-26 21:20 | ER Document Report ---
ED General - General Chief Complaint: Arm Problem Stated Complaint: ARM PAIN Time Seen by Provider: 02/26/17 19:21 Notes: 41-year-old male here with complaints of right arm pain that started earlier today as well as neck pain that has been ongoing for the past several years. He has been seeing outpatient providers and attempting to get neck surgery performed however has not been able to do so thus far. Regarding the right arm pain, he has done no heavy lifting. The right arm pain actually started after he received an epidural injection by his doctor and states that the pain in his neck worsened after receiving the injection. He denies any chest pain. He does endorse some palpitations mainly when he is having episodes of worsening pain. His pain is worse with movement of the right arm. It is improved with minimizing movement. TRAVEL OUTSIDE OF THE [place] IN LAST 30 DAYS: No - Related Data Allergies/Adverse Reactions: bee stings Allergy (Uncoded 02/26/17 15:30) Past Medical History - Social History Smoking Status: Unknown if Ever Smoked Family History: Reviewed & Not Pertinent, Other - Kidney stones Patient has suicidal ideation: No Patient has homicidal ideation: No - Past Medical History Cardiac Medical History: Reports: Hx Hypertension - 2 YRS AGO Denies: Hx Atrial Fibrillation, Hx Congestive Heart Failure, Hx Coronary Artery Disease, Hx DVT, Hx Heart Attack, Hx Hypercholesterolemia, Hx Peripheral Vascular Disease, Hx Pulmonary Embolism Pulmonary Medical History: Reports: Hx Asthma - SINCE 12 YRS OLD Neurological Medical History: Reports: Hx Migraine. Denies: Hx Cerebrovascular Accident, Hx Seizures Endocrine Medical History: Denies: Hx Diabetes Mellitus Type 1, Hx Diabetes Mellitus Type 2, Hx Graves' Disease, Hx Hyperthyroidism, Hx Hypothyroidism Renal/ Medical History: Denies: Hx Peritoneal Dialysis GI Medical History: Denies: Hx Hepatitis Psychiatric Medical History: Reports: Hx Attention Deficit Hyperactivity Disorder, Hx Post Traumatic Stress Disorder Infectious Medical History: Denies: Hx Hepatitis Past Surgical History: Reports: Hx Orthopedic Surgery - left knee X3, right knee , bilateral carpal tunnel - Immunizations Hx Diphtheria, Pertussis, Tetanus Vaccination: Yes Review of Systems - Review of Systems Notes: See history of present illness for pertinent positive review of systems; otherwise all review of systems have been reviewed and are negative Physical Exam - Vital signs Vitals: Temp Pulse Resp BP Pulse Ox 98.6 F 93 14 127/73 H 95 02/26/17 15:35 02/26/17 15:35 02/26/17 15:35 02/26/17 15:35 02/26/17 15:35 - Notes Notes: PHYSICAL EXAMINATION: GENERAL: Well-appearing and in no acute distress. HEAD: Atraumatic, normocephalic. EYES: Pupils equal round and reactive to light, extraocular movements intact, sclera anicteric, conjunctiva are normal. ENT: nares patent, oropharynx clear without exudates. Moist mucous membranes. NECK: Normal range of motion, supple without lymphadenopathy; mild midline cervical spine tenderness to palpation (baseline) LUNGS: CTAB and equal. No wheezes rales or rhonchi. HEART: Regular rate and rhythm without murmurs ABDOMEN: Soft, no tenderness. No guarding, no rebound EXTREMITIES: Limited active range of motion secondary to pain, no pitting edema. No cyanosis. Tenderness to palpation of right anterior deltoid. Normal range of motion with minimal pain on passive range of motion NEUROLOGICAL: Cranial nerves grossly intact. Normal sensory/motor exams. PSYCH: Normal mood, normal affect. SKIN: Warm, Dry, normal turgor, no rashes or lesions noted Course - Re-evaluation Re-evalutation: 02/26/17 21:20 MEDICAL DECISION MAKING: Concern for musculoskeletal strain Will give patient a dose of pain medication and place arm in sling Home with prescription for pain medicine Patient understands and agrees to the plan of care - Vital Signs Vital signs: Temp Pulse Resp BP Pulse Ox 98.3 F 87 18 129/79 H 99 02/26/17 19:22 02/26/17 19:22 02/26/17 19:22 02/26/17 19:22 02/26/17 19:22 - Laboratory Result Diagrams: 02/26/17 19:55 02/26/17 19:55 Laboratory results interpreted by me: 02/26/17 02/26/17 19:55 19:55 Lymphocytes % 46.5 H BUN 25 H Creatinine 1.32 H Discharge - Discharge Clinical Impression: Right arm pain Condition: Good Disposition: HOME, SELF-CARE Additional Instructions: Use the prescribed medication as needed for pain. You were seen in the emergency department at [facility]. If you were given any sedating medications, be sure not to operate heavy machinery (example - driving ) and be sure you are not too sedated to walk appropriately. Please followup with your primary physician in the next few days for further management/ evaluation. Please return to the emergency department for worsening of symptoms or any symptom that you deem to be concerning or life-threatening. Thank you for allowing us to be part of your care. Prescriptions: Meloxicam 15 mg PO DAILY #7 tablet Orphenadrine Citrate 100 mg PO DAILY #7 tablet.er
[2017-02-26] MEDS ORDERED: KETOROLAC TROMETHAMINE 60 MG/2 ML SDV IM ONE (21:23)
[2017-02-26 21:49] VITALS: BP 131/76
== END 2017-02-26 21:50 | disposition home or self-care (01) ==
LOC: ER 15:29
DX: M79.601 Pain in right arm (principal); I10 Essential (primary) hypertension
CPT/HCPCS: 93005; 99284; 96372; 36415; 87040; 85025; 80053; 93010; J1885

== ENCOUNTER 2017-02-28 10:16 | Emergency (ER) | payer OTHER ==
[2017-02-28] MEDS ORDERED: OXYCODONE-ACETAMINOPHEN 5-325 MG TABLET PO ONE (11:04)
[2017-02-28] MEDS ORDERED: KETOROLAC TROMETHAMINE INJ/PF 30 MG/1 ML SDV IM ONE (11:04)
--- NOTE | 2017-02-28 11:05 | ER Document Report ---
HPI - HPI Patient complains to provider of: shoulder pain Pain Level: 4 Context: Patient is a 41-year-old male who presents emergency from complaining of right shoulder pain. Patient states that he was seen for this 2 days ago given pain medication injection told to wear a sling and to follow-up with his orthopedic surgeon. Patient admits that he has a history of chronic neck pain with disc disease that he is supposed to have surgery on soon. Otherwise he states that over the past week and a half has been having severe right shoulder pain that has gotten worse with movement. He states it hurts in the front of his within the joint of the shoulder. He was told by his physical therapist that he possibly has a labral tear or rotator cuff injury. He otherwise denies any direct trauma patient is on chronic pain medication. - MUSCULOSKELETAL Musculoskeletal: REPORTS: Extremity pain - rt arm Past Medical History - Social History Smoking Status: Never Smoker Chew tobacco use (# tins/day): No Frequency of alcohol use: None Drug Abuse: None Family History: Reviewed & Not Pertinent, Other - Kidney stones Patient has suicidal ideation: No Patient has homicidal ideation: No - Past Medical History Cardiac Medical History: Reports: Hx Hypertension - 2 YRS AGO Denies: Hx Atrial Fibrillation, Hx Congestive Heart Failure, Hx Coronary Artery Disease, Hx DVT, Hx Heart Attack, Hx Hypercholesterolemia, Hx Peripheral Vascular Disease, Hx Pulmonary Embolism Pulmonary Medical History: Reports: Hx Asthma - SINCE 12 YRS OLD Neurological Medical History: Reports: Hx Migraine. Denies: Hx Cerebrovascular Accident, Hx Seizures Endocrine Medical History: Denies: Hx Diabetes Mellitus Type 1, Hx Diabetes Mellitus Type 2, Hx Graves' Disease, Hx Hyperthyroidism, Hx Hypothyroidism Renal/ Medical History: Denies: Hx Peritoneal Dialysis GI Medical History: Denies: Hx Hepatitis Psychiatric Medical History: Reports: Hx Attention Deficit Hyperactivity Disorder, Hx Post Traumatic Stress Disorder Infectious Medical History: Denies: Hx Hepatitis Past Surgical History: Reports: Hx Orthopedic Surgery - left knee X3, right knee , bilateral carpal tunnel - Immunizations Hx Diphtheria, Pertussis, Tetanus Vaccination: Yes Vertical Provider Document - CONSTITUTIONAL Agree With Documented VS: Yes Notes: PHYSICAL EXAM GENERAL: Alert, interacts well. EXTREMITIES: Moves all 4 extremities spontaneously, pain with shoulder anterior rotation and shoulder flexion. Otherwise full passive range of motion without any deformity, swelling. Equal compensation business partner strength bilaterally. Right elbow full range of motion nontender.. No edema, radial pulses 2/4 bilaterally. No cyanosis. NEUROLOGICAL: Alert and oriented x4. Normal speech. PSYCH: Normal affect, normal mood. SKIN: Warm, dry, normal turgor. No rashes or lesions noted. - INFECTION CONTROL TRAVEL OUTSIDE OF THE [place] IN LAST 30 DAYS: No - RESPIRATORY O2 Sat by Pulse Oximetry: 97 Course - Re-evaluation Re-evalutation: 02/28/17 12:00 Patient is a 41-year-old male is hemodynamically stable, no acute distress and afebrile. No evidence of fracture dislocation noted on x-ray. Given the patient is a history of chronic pain will not discharge him home with any narcotics. Discussed with him that we will place him in a sling since he did not receive one in his last visit and told her to follow-up with his orthopedic surgeon for further evaluation of rotator cuff possible glenoid labrum tear. Patient agrees with plan and is stable for discharge home. - Vital Signs Vital signs: Temp Pulse Resp BP Pulse Ox 98.8 F 84 18 137/86 H 97 02/28/17 10:26 02/28/17 10:26 02/28/17 10:26 02/28/17 10:26 02/28/17 10:26 - Diagnostic Test Radiology reviewed: Image reviewed, Reports reviewed Discharge - Discharge Clinical Impression: Shoulder pain Qualifiers: Chronicity: unspecified Laterality: right Qualified Code(s): M25.511 - Pain in right shoulder Condition: Good Disposition: HOME, SELF-CARE Additional Instructions: Your x-ray today did not show any evidence of new injury to your shoulder. He will need to follow-up with your clinical exercise specialist for further evaluation. Please take your home medications as prescribed. Forms: Elevated Blood Pressure Referrals: ADALID DIA MD [Primary Care Provider] - Follow up as needed
--- NOTE | 2017-02-28 12:21 | RADIOLOGY REPORT (SQ) ---
EXAM DESCRIPTION: SHOULDER RIGHT 2 OR MORE VIEWS COMPLETED DATE/TIME: 02/28/2017 11:37 am REASON FOR STUDY: pain COMPARISON: 10/29/2012. NUMBER OF VIEWS: 4 views. TECHNIQUE: Internal rotation, external rotation, axillary, and Y view images acquired of the right s houlder. LIMITATIONS: None. FINDINGS: MINERALIZATION: Normal. BONES: No acute fracture or dislocation. No worrisome bone lesions. JOINTS: No dislocation. VISUALIZED LUNGS AND RIBS: No pneumothorax. No rib fracture. SOFT TISSUES: No radiopaque foreign body. OTHER: No other significant finding. IMPRESSION: NORMAL RIGHT SHOULDER. NO SIGNIFICANT INTERVAL CHANGE. TECHNICAL DOCUMENTATION: JOB ID: [id number] [employer]- All Rights Reserved
[2017-02-28 13:16] VITALS: BP 140/80
== END 2017-02-28 13:10 | disposition home or self-care (01) ==
LOC: ER 10:16
DX: M25.511 Pain in right shoulder (principal); M54.2 Cervicalgia; G89.29 Other chronic pain; Z79.899 Other long term (current) drug therapy; I10 Essential (primary) hypertension; J45.909 Unspecified asthma, uncomplicated
CPT/HCPCS: 99283; 96372; 73030; J1885

== ENCOUNTER 2017-03-15 02:11 | Emergency (ER) | payer OTHER ==
[2017-03-15] MEDS ORDERED: ASPIRIN 81 MG TABLET, CHEWABLE PO ONE (03:02)
--- NOTE | 2017-03-15 03:40 | ER Document Report ---
ED General - General Chief Complaint: Shortness Of Breath Stated Complaint: DIFFICULTY BREATHING Time Seen by Provider: 03/15/17 02:49 Mode of Arrival: Wheelchair Information source: Patient Notes: Patient states that he is due to have knee surgery tomorrow and was advised to take a dose of his postoperative pain medication to be certain that he is not going to have any adverse reaction to the medicine. Patient states that he took Dilaudid 4 mg at around 1145 this evening and then also took his lamotrigine. Patient states that about 15 minutes later he started to have chest tightness, lightheadedness and difficulty breathing. Patient denies any nausea, vomiting or diarrhea. TRAVEL OUTSIDE OF THE [place] IN LAST 30 DAYS: No - HPI Onset: Other - 1 AM Onset/Duration: Persistent Quality of pain: Other - Chest tightness Associated symptoms: Chest pain, Shortness of breath. denies: Nonproductive cough, Productive cough, Nausea, Vomiting Exacerbated by: Denies Relieved by: Denies Similar symptoms previously: No Recently seen / treated by doctor: Yes - Related Data Allergies/Adverse Reactions: bee stings Allergy (Uncoded 02/26/17 15:30) Past Medical History - General Information source: Patient - Social History Smoking Status: Never Smoker Frequency of alcohol use: None Drug Abuse: None Occupation: director food and beverage Lives with: Spouse/Significant other Family History: Reviewed & Not Pertinent, Other - Kidney stones Patient has suicidal ideation: No Patient has homicidal ideation: No - Past Medical History Cardiac Medical History: Reports: Hx Hypertension - 2 YRS AGO Denies: Hx Atrial Fibrillation, Hx Congestive Heart Failure, Hx Coronary Artery Disease, Hx DVT, Hx Heart Attack, Hx Hypercholesterolemia, Hx Peripheral Vascular Disease, Hx Pulmonary Embolism Pulmonary Medical History: Reports: Hx Asthma - SINCE 12 YRS OLD Neurological Medical History: Reports: Hx Migraine. Denies: Hx Cerebrovascular Accident, Hx Seizures Endocrine Medical History: Denies: Hx Diabetes Mellitus Type 1, Hx Diabetes Mellitus Type 2, Hx Graves' Disease, Hx Hyperthyroidism, Hx Hypothyroidism Renal/ Medical History: Reports: Hx Renal Insufficiency. Denies: Hx Peritoneal Dialysis GI Medical History: Denies: Hx Hepatitis Musculoskeltal Medical History: Reports Hx Arthritis Psychiatric Medical History: Reports: Hx Attention Deficit Hyperactivity Disorder, Hx Post Traumatic Stress Disorder Infectious Medical History: Denies: Hx Hepatitis Past Surgical History: Reports: Hx Orthopedic Surgery - left knee X3, right knee , bilateral carpal tunnel - Immunizations Hx Diphtheria, Pertussis, Tetanus Vaccination: Yes Review of Systems - Review of Systems Constitutional: No symptoms reported. denies: Fever, Recent illness EENT: No symptoms reported Cardiovascular: Chest pain Respiratory: Short of breath. denies: Cough Gastrointestinal: No symptoms reported. denies: Abdominal pain, Diarrhea, Nausea, Vomiting Genitourinary: No symptoms reported Male Genitourinary: No symptoms reported Musculoskeletal: Joint pain - Chronic knee pain, chronic neck pain Skin: No symptoms reported Hematologic/Lymphatic: No symptoms reported Neurological/Psychological: No symptoms reported Physical Exam - Vital signs Vitals: Temp Pulse Resp BP Pulse Ox 97.7 F 77 16 121/68 95 03/15/17 02:17 03/15/17 02:17 03/15/17 02:17 03/15/17 02:17 03/15/17 02:17 - General General appearance: Appears well, Alert In distress: None - HEENT Head: Normocephalic, Atraumatic Eyes: Normal Conjunctiva: Normal Nasal: Normal Mouth/Lips: Normal Mucous membranes: Normal Pharynx: Normal. No: Erythema Neck: Normal, Supple. No: Lymphadenopathy - Respiratory Respiratory status: No respiratory distress Chest status: Nontender Breath sounds: Normal Chest palpation: Tender - Mild anterior chest wall tenderness - Cardiovascular Rhythm: Regular Heart sounds: S1 appreciated, S2 appreciated Murmur: No - Abdominal Inspection: Normal Distension: No distension Bowel sounds: Normal Tenderness: Nontender Organomegaly: No organomegaly - Back Back: Normal, Nontender. No: CVA tenderness - Extremities General upper extremity: Normal inspection, Nontender, Normal strength General lower extremity: Normal inspection, Nontender, Normal strength - Neurological Neuro grossly intact: Yes Cognition: Normal Arron Coma Scale Eye Opening: Spontaneous Arron Coma Scale Verbal: Oriented Arron Coma Scale Motor: Obeys Commands Arron Coma Scale Total: 15 - Psychological Associated symptoms: Normal affect, Normal mood - Skin Skin Temperature: Warm Skin Moisture: Dry Skin Color: Normal Course - Re-evaluation Re-evalutation: 03/15/17 04:36 Patient resting comfortably. Patient denies any chest tightness at this time. Respirations even and unlabored. Vital signs stable. 03/15/17 06:37 Patient vital signs stable. Patient denies any complaints at this time. 03/15/17 07:10 The patient has atypical chest pain as the patient's chest pain is not suggestive of pulmonary embolus, cardiac ischemia, aortic dissection, or other serious etiology. Given the extremely low risk of these diagnoses for the test in evaluation for these possibilities does not appear to be indicated at this time. Patient has been instructed to return if the symptoms worsen or change in any way. Heart score 1 for risk factors. Patient PERC negative 03/15/17 07:13 - Vital Signs Vital signs: Temp Pulse Resp BP Pulse Ox 97.7 F 77 14 99/67 L 99 03/15/17 02:17 03/15/17 02:17 03/15/17 07:01 03/15/17 07:01 03/15/17 07:01 - Laboratory Result Diagrams: 03/15/17 03:25 03/15/17 03:25 Laboratory results interpreted by me: 03/15/17 03/15/17 03:25 03:25 Lymphocytes % 47.1 H Carbon Dioxide 31 H Glucose 159 H AST 69 H Creatine Kinase 354 H - Diagnostic Test Radiology reviewed: Reports reviewed - EKG Interpretation by Me EKG shows normal: Sinus rhythm Rate: Normal Discharge - Discharge Clinical Impression: Chest tightness, dyspnea- resolved Adverse effects of medication Qualifiers: Encounter type: initial encounter Qualified Code(s): T88.7XXA - Unspecified adverse effect of drug or medicament, initial encounter Condition: Stable Disposition: HOME, SELF-CARE Instructions: Chest Pain of Unclear Cause ([facility]) Additional Instructions: Return immediately for any new or worsening symptoms Followup with your primary care provider, call tomorrow to make a followup appointment Avoid taking Dilaudid, follow-up with your primary doctor tomorrow for recheck. Let the surgeon know that you are evaluated here today, they may need to change the date of your surgery. Follow-up with a registered travel nurse for further evaluation, call Thursday for an appointment Referrals: ADALID DIA MD [Primary Care Provider] - Follow up tomorrow EMANI REEVES MD [ACTIVE STAFF] - Follow up in 3-5 days
[2017-03-15 03:42] LABS: ABSOLUTE EOSINOPHILS # (AUTO) 0.2 10^3/uL (0.0-0.6); ABSOLUTE LYMPHOCYTES (AUTO) 2.4 10^3/uL (0.5-4.7); ABSOLUTE MONOCYTES (AUTO) 0.3 10^3/uL (0.1-1.4); ABSOLUTE NEUT (AUTO) 2.2 10^3/uL (1.7-8.2); BASOPHILS % (AUTO) 0.7 % (0-2); EOSINOPHILS % (AUTO) 3.5 % (0-6); HEMATOCRIT 41.3 % (37.9-51.0); HEMOGLOBIN 13.8 g/dL (13.5-17.0); LYMPHOCYTES % (AUTO) 47.1 % (13-45); MEAN CORPUSCULAR HEMOGLOBIN 29.5 pg (27.0-33.4); MEAN CORPUSCULAR HGB CONC 33.5 g/dL (32.0-36.0); MEAN CORPUSCULAR VOLUME 88 fl (80-97); PLATELET COUNT 223 10^3/uL (150-450); RED BLOOD COUNT 4.69 10^6/uL (4.35-5.55); RED CELL DISTRIBUTION WIDTH 13.7 % (11.5-14.0); SEGMENTED NEUTROPHILS % (AUTO) 42.7 % (42-78); TOTAL CELLS COUNTED % (AUTO) 100 %; WHITE BLOOD COUNT 5.1 10^3/uL (4.0-10.5)
[2017-03-15 04:00] LABS: ALANINE AMINOTRANSFERASE 44 U/L (21-72); ALBUMIN 4.1 g/dL (3.5-5.0); ALKALINE PHOSPHATASE 67 U/L (38-126); ANION GAP 7 (5-19); ASPARTATE AMINO TRANSFERASE 69 U/L (17-59); BILIRUBIN,DIRECT 0.2 mg/dL (0.0-0.4); BILIRUBIN,TOTAL 0.6 mg/dL (0.2-1.3); BLOOD UREA NITROGEN 14 mg/dL (7-20); CALCIUM 9.4 mg/dL (8.4-10.2); CARBON DIOXIDE 31 mmol/L (22-30); CHLORIDE 100 mmol/L (98-107); CREATINE KINASE 354 U/L (55-170); GLUCOSE 159 mg/dL (75-110); POTASSIUM 3.8 mmol/L (3.6-5.0); TOTAL PROTEIN 6.8 g/dL (6.3-8.2)
[2017-03-15 04:04] LABS: BILIRUBIN,URINE NEGATIVE (NEGATIVE); COLOR,URINE YELLOW; GLUCOSE, URINE NEGATIVE (NEGATIVE); KETONES,URINE NEGATIVE (NEGATIVE); LEUKOCYTE ESTERASE,URINE NEGATIVE (NEGATIVE); NITRITE,URINE NEGATIVE (NEGATIVE); PROTEIN,URINE NEGATIVE (NEGATIVE); URINE SPECIFIC GRAVITY 1.026; UROBILINOGEN,URINE NEGATIVE mg/dL (<2.0)
[2017-03-15 04:11] LABS: APPEARANCE,URINE CLEAR
[2017-03-15 04:12] LABS: CREATINE KINASE MB 2.45 ng/mL (<4.55)
[2017-03-15 04:15] LABS: TROPONIN I < 0.012 ng/mL
[2017-03-15] MEDS ORDERED: NORMAL SALINE 1000 ML 1,000 ML IV ONE (04:24)
[2017-03-15 04:44] LABS: URINE AMPHETAMINES SCREEN NEGATIVE; URINE BARBITURATES SCREEN NEGATIVE; URINE BENZODIAZEPINES SCREEN NEGATIVE; URINE COCAINE SCREEN NEGATIVE; URINE MARIJUANA (THC) SCREEN NEGATIVE; URINE METHADONE SCREEN NEGATIVE; URINE PHENCYCLIDINE SCREEN NEGATIVE
--- NOTE | 2017-03-15 05:25 | RADIOLOGY REPORT (SQ) ---
EXAM DESCRIPTION: CHEST PA/LAT CLINICAL HISTORY: cp, diff breathing COMPARISON: 04/17/2016 FINDINGS: Frontal and lateral views of the chest. The cardiomediastinal silhouette has normal size and contour. No consolidation, pneumothorax, or pleural effusion. No displaced rib fractures identified. Upper abdominal soft tissues are unremarkable. IMPRESSION: 1. No acute pulmonary process identified.
[2017-03-15 08:10] VITALS: BP 108/68
--- NOTE | 2017-03-15 11:57 | EKG REPORT ---
SEVERITY:- NORMAL ECG - SINUS RHYTHM : Confirmed by: Elayne Plunkett MD 15-Mar-2017 11:56:52
== END 2017-03-15 07:42 | disposition home or self-care (01) ==
LOC: ER 02:11
DX: R07.89 Other chest pain (principal); R06.02 Shortness of breath; T50.905A Adverse effect of unspecified drugs, medicaments and biological substances, initial encounter; I10 Essential (primary) hypertension; R42 Dizziness and giddiness; J45.909 Unspecified asthma, uncomplicated; M25.569 Pain in unspecified knee; M54.2 Cervicalgia; G89.29 Other chronic pain; Z79.899 Other long term (current) drug therapy; Z91.030 Bee allergy status
CPT/HCPCS: 93005; 99285; 96360; 36415; 82553; 82550; 85025; 80053; 81001; 84484; 80307; 71046; 93010; J7030

== ENCOUNTER 2017-04-29 05:38 | Inpatient (IN) | payer OTHER ==
[2017-04-22 12:16] LABS: HEMATOCRIT 41.5 % (37.9-51.0); HEMOGLOBIN 14.2 g/dL (13.5-17.0); MEAN CORPUSCULAR HEMOGLOBIN 29.8 pg (27.0-33.4); MEAN CORPUSCULAR HGB CONC 34.2 g/dL (32.0-36.0); MEAN CORPUSCULAR VOLUME 87 fl (80-97); PLATELET COUNT 243 10^3/uL (150-450); RED BLOOD COUNT 4.75 10^6/uL (4.35-5.55); RED CELL DISTRIBUTION WIDTH 13.7 % (11.5-14.0); WHITE BLOOD COUNT 4.8 10^3/uL (4.0-10.5)
--- NOTE | 2017-04-22 22:14 | EKG REPORT ---
SEVERITY:- BORDERLINE ECG - SINUS RHYTHM PROBABLE LEFT ATRIAL ABNORMALITY : Confirmed by: Shirley Sam 22-Apr-2017 22:13:45
[~2017-04-29 05:38] MED LIST: CEFAZOLIN 2 GM/D5W RTU 2 GM/50 ML RTUPB IV PRN; LACTATED RINGERS 1000 ML IV PRN
[2017-04-29] MEDS ORDERED: BACITRACIN INJ 50,000 UNIT VIAL ONE (06:55)
[2017-04-29] MEDS ORDERED: THROMBIN (BOVINE) 5000 UNIT EPITAXIS KIT ONE (06:55)
[2017-04-29] MEDS ORDERED: BUPIVACAINE INJ/PF LIPOSOME/PF 266 MG/20 ML SDV ONE (06:56)
[2017-04-29] MEDS ORDERED: MIDAZOLAM 2 MG/2 ML INJ ONE ×2 (07:09→07:14)
[2017-04-29] MEDS ORDERED: FENTANYL CITRATE INJ/PF 250 MCG/5 ML AMPULE ONE (07:10)
[2017-04-29] MEDS ORDERED: ACETAMINOPHEN 100 ML IV ONE ×2 (07:10→07:14)
[2017-04-29] MEDS ORDERED: PROPOFOL INJ 200 MG/20 ML VIAL IV ONE ×2 (07:10→07:12)
[2017-04-29] MEDS ORDERED: EPHEDRINE SULFATE INJ 50 MG/1 ML AMPULE ONE (07:10)
[2017-04-29] MEDS ORDERED: DEXMEDETOMIDINE INJ 80 MCG/20 ML VIAL IV ONE (07:11)
[2017-04-29] MEDS ORDERED: BUPIVACAINE HCL 0.5 % INJ/PF 30 ML SDV ONE (07:21)
[2017-04-29] MEDS ORDERED: OXYCODONE-ACETAMINOPHEN 5-325 MG TABLET PO PRN ×2 (08:22)
[2017-04-29] MEDS ORDERED: DIPHENHYDRAMINE HCL 50 MG/ML VIAL IV PRN (08:22)
[2017-04-29] MEDS ORDERED: FENTANYL CITRATE INJ/PF 100 MCG/2 ML AMPUL IV PRN ×3 (08:22)
[2017-04-29] MEDS ORDERED: PROMETHAZINE HCL INJ 25 MG/1 ML VIAL IV PRN ×2 (08:22)
[2017-04-29] MEDS ORDERED: MEPERIDINE HCL/PF INJ 25 MG/1 ML DISP.SYRIN IV PRN (08:22)
[2017-04-29] MEDS ORDERED: PROMETHAZINE HCL INJ 25 MG/1 ML VIAL ONE (10:41)
[2017-04-29] MEDS: FENTANYL CITRATE INJ/PF 100 MCG/2 ML AMPUL ONE ×2 (10:45→11:00)
[2017-04-29] MEDS ORDERED: METHOCARBAMOL INJ/PF 1000 MG/10 ML SDV IV PRN (10:59)
--- NOTE | 2017-04-29 11:17 | RADIOLOGY REPORT (SQ) ---
EXAM DESCRIPTION: CERV SP 3 VIEW OR LESS COMPLETED DATE/TIME: 04/29/2017 10:53 am REASON FOR STUDY: ACDF C7-T1 ASST WITH FLUORO IN OR M54.2 CERVICALGIA M50.30 OTHER CERVICAL DISC D EGENERATION, UNSP CERVICAL REGIO M48.02 SPINAL STENOSIS, CERVICAL REGION COMPARISON: None. FLUOROSCOPY TIME: 0.4 minutes 14 images saved to PACS. TECHNIQUE: Intra-operative images acquired during surgical procedure to evaluate progress. NUMBER OF IMAGES: 14 image LIMITATIONS: None. FINDINGS: Fluoroscopic images were obtained during ACDF at the C7-T1 level. Please refer to the stan marisol's operative report for additional information IMPRESSION: IMAGE(S) OBTAINED DURING PROCEDURE. COMMENT: Quality ID [id number]: Final reports for procedures using fluoroscopy that document radiation exp osure indices, or exposure time and number of fluorographic images (if radiation exposure indices are not available) Please consult full operative report of the attending physician for description of the procedure. TECHNICAL DOCUMENTATION: JOB ID: [id number] [employer]- All Rights Reserved Reading location - IP/workstation name: [email or web address]
--- NOTE | 2017-04-29 11:18 | RADIOLOGY REPORT (SQ) ---
EXAM DESCRIPTION: NO CHG FLUORO COMPLETE DATE/TIME: 04/29/2017 10:53 am REASON FOR STUDY: ACDF C7-T1 ASST WITH FLUORO IN OR M54.2 CERVICALGIA M50.30 OTHER CERVICAL DISC D EGENERATION, UNSP CERVICAL REGIO M48.02 SPINAL STENOSIS, CERVICAL REGION FINDINGS: Please see combined report for performance of procedure and radiologic supervision and int erpretation. IMPRESSION: Please see combined report for performance of procedure and radiologic supervision and i nterpretation. Reading location - IP/workstation name: [email or web address]
--- NOTE | 2017-04-29 11:24 | OPERATIVE REPORT E ---
Operative Report NAME: GOLDY GREEN : 1975 AGE: 41Y DATE OF SURGERY: 04/29/2017 ROOM: OR PREOPERATIVE DIAGNOSIS: C7-T1 herniated nucleus pulposus with radiculitis, stenosis, degenerative disk disease, neck pain. POSTOPERATIVE DIAGNOSIS: C7-T1 herniated nucleus pulposus with radiculitis, stenosis, degenerative disk disease, neck pain. PROCEDURE: C7-T1 anterior cervical diskectomy and fusion with instrumentation, interbody spacer, allograft, left iliac crest aspiration through a separate incision for bone marrow aspirate. SURGEON: UZIEL RG M.D. INSPECTOR DIALS: Allan Uriarte, Physician Crew Supervisor ANESTHESIA: General endotracheal intubation. ESTIMATED BLOOD LOSS: 100 mL. INDICATIONS: Patient is a 41-year-old male who has significant numbness and weakness in the CA distribution. He has failed conservative measurement in the past and has had worsening numbness and weakness. After discussion with the patient of the risks, indications, alternatives including the risk of dysphagia or dysphonia, the risk of nonunion, the risk of continued neck pain, the risk of adjacent level arthritis and need for further surgery, the risk of dural failure and spinal headache, the risk of infection and bleeding patient understood these risks and wished to pursue the surgical intervention. OPERATIVE TECHNIQUE: The patient was brought into the room, placed under anesthesia, received 2 g of Ancef within an hour of prep time. Had neuromonitoring leads placed on him. Patient is placed in the supine position with a bolster between the shoulder blades and neck placed in neutral position. After the neuromonitoring leads are placed on the patient, the medical epicondyles are well padded and arms are tucked at the side. The left iliac crest is prepped and draped and a Jamshidi needle was introduced into the iliac crest 7 cm posterior to the anterior/superior iliac spine. A total of 3 mL of bone marrow aspirate are obtained. The site is cleansed and dressed with Band-Aid. After that attention is paid to the cervical spine. Lateral C-arm fluoroscopy is used to heena the skin. Upon verification of that level using C-arm fluoroscopy and after completion of prepping and draping, a transverse incision was carried down through the skin measuring approximately an inch and a half. Sharp dissection was carried down, the platysma incised, electrocautery was used to maintain hemostasis, and the pretracheal fascia is dissected out. The longus colli muscle is used to retract soft tissues and the blood vessels laterally. The trachea and esophagus are retracted medially through the assistance of TrimLine/Dateland retractors and then the prevertebral fascia are retracted medially through the assistance of TrimLine/Dateland retractors and then the prevertebral fascia is identified and dissected out using Kittners and the disk space is identified. A needle was placed into the disk space and under C-arm fluoroscopy lateral/oblique fluoroscopy was used to verify that this was a C7-T1 level. Upon verification of that level, Vega pins are positioned into the C7 and T1 vertebral bodies used to retract cephalad to caudad and then the microscope is brought in. Under the microscope an annulotomy was performed and then many small large degenerative pieces of disk are removed and plates were curetted to good bleeding bone. Posterior longitudinal ligament is resected and significant posterior osteophytes are resected as well. The foraminotomy is and the foramen is found to be significantly collapsed. The nerve root is then freed up and osteophytes and pieces of calcified disk are resected as well. After completion, the foramen was more patent and the central canal was decompressed completely. Upon determining the appropriate size of the spacer which was the coalition AGX 5 mm parallel spacer filed with Mozaik calcium triphosphate and bone marrow aspirate that is also attached to an AGX reduced profile 5 mm plate and placed in interbody space. Self-drilling, self-tapping 14 mm screws are placed and felt to have good contact and good attachment to the bone and the locking cap is then finally tightened over the 2 screws. Cranial motor testing is then obtained and found to be stable. The wounds were then irrigated with a liter of bacitracin irrigation and the 7 flat Mongolian drain is brought in inferolateral to the incision, placed to negative SAMEER pressure. After irrigation with a liter of bacitracin irrigation, the platysma was reapproximated with 2-0 Vicryl in interrupted fashion and the skin with a running, subcuticular 3-0 Monocryl closure. Wounds were dressed in benzoin, Steri-Strips, 4 x 4, and tape. Please note a drain stitch is placed to hold the drain in position. Please note this procedure could not have been done without the assistance of Allan Uriarte, Physician Crew Supervisor, working under the microscope, carrying out the diskectomy, and placement of the interbody spacer and plate. Estimated blood loss is 100 mL. The patient's condition is. DISPOSITION: To recovery room. DICTATING PHYSICIAN: UZIEL RG M.D. [id number] PHY#: [id number] ID: [id number] JOB#: [id number] ACCT: [id number] cc:UZIEL RG M.D. > MTDD
[2017-04-29] MEDS ORDERED: PHENOL/SODIUM PHENOLATE 100 SPRAY/177 ML BOTTLE PO PRN (13:41)
[2017-04-29] MEDS ORDERED: NEOSTIGMINE METHYLSULFATE 10 MG/10 ML VIAL ONE (15:12)
[2017-04-29] MEDS ORDERED: SUCCINYLCHOLINE CHLORIDE INJ 200 MG/10 ML VIAL ONE (15:12)
[2017-04-29] MEDS ORDERED: PHENYLEPHRINE HCL INJ/PF 10 MG/1 ML SDV ONE (15:12)
[2017-04-29] MEDS ORDERED: GLYCOPYRROLATE INJ 0.4 MG/2 ML VIAL ONE (15:12)
[2017-04-29] MEDS ORDERED: LIDOCAINE 2% INJ-PF (20 MG/ML) 2 ML AMPUL ONE (15:12)
[2017-04-29] MEDS ORDERED: ONDANSETRON HCL INJ/PF 4 MG/2 ML SDV ONE (15:12)
[2017-04-29 17:30] VITALS: BP 92/68
--- NOTE | 2017-04-29 19:39 | DISCHARGE SUMMARY E ---
Discharge Summary NAME: GOLDY GREEN : 1975 AGE: 41Y ADMITTED: 04/29/2017 DISCHARGED: 04/29/2017 BRIEF HISTORY AND COURSE OF HOSPITAL STAY: The patient is a 41-year-old male who was admitted, underwent 1 level cervical fusion, did well, is requesting discharge, and will be discharged this afternoon. The patient is status post C7-T1 anterior cervical diskectomy and fusion. Drain is removed, and dressing is changed. The patient is instructed to keep the dressing clean and dry and to follow up in the office as per our instructions. CONDITION: Stable. DIET: As tolerated. DICTATING PHYSICIAN: UZIEL RG M.D. [id number] PHY#: [id number] ID: [id number] JOB#: [id number] ACCT: [id number] cc:UZIEL RG M.D. >
== END 2017-04-29 16:50 | disposition home or self-care (01) | DRG 473 ==
LOC: INOR 05:38
PROVIDERS: ADMIT Orthopaedic Surgery; ATTEND Orthopaedic Surgery
PROC: 0RB30ZZ Excision of Cervical Vertebral Disc, Open Approach (ICD-10-PCS; 2017-04-29)
PROC: 07DR3ZZ Extraction of Iliac Bone Marrow, Percutaneous Approach (ICD-10-PCS; 2017-04-29)
PROC: 0RG40A0 Fusion of Cervicothoracic Vertebral Joint with Interbody Fusion Device, Anterior Approach, Anterior Column, Open Approach (ICD-10-PCS; principal; 2017-04-29 07:30)
DX: M50.13 Cervical disc disorder with radiculopathy, cervicothoracic region (principal); M48.02 Spinal stenosis, cervical region; F41.9 Anxiety disorder, unspecified; F43.10 Post-traumatic stress disorder, unspecified; F31.9 Bipolar disorder, unspecified; F90.9 Attention-deficit hyperactivity disorder, unspecified type; I10 Essential (primary) hypertension; Z83.3 Family history of diabetes mellitus; Z82.49 Family history of ischemic heart disease and other diseases of the circulatory system; Z79.899 Other long term (current) drug therapy
CPT/HCPCS: 36415; 670; 72040; 85027; 93005; 93010; C1713; C9290; J0131; J0330; J0690; J2250; J2370; J2405; J2550; J2704; J2800; J3010; J3490; L0120

== ENCOUNTER 2017-06-24 10:59 | Emergency (ER) | payer OTHER ==
[2017-06-24] MEDS ORDERED: KETOROLAC TROMETHAMINE INJ/PF 30 MG/1 ML SDV IM ONE (11:34)
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
[2017-06-24] MEDS ORDERED: OXYCODONE-ACETAMINOPHEN 5-325 MG TABLET PO ONE (12:41)
[2017-06-24 12:50] VITALS: BP 129/70
== END 2017-06-24 12:52 | disposition home or self-care (01) ==
LOC: ER 10:59
DX: S16.1XXA Strain of muscle, fascia and tendon at neck level, initial encounter (principal); V49.50XA Passenger injured in collision with unspecified motor vehicles in traffic accident, initial encounter; Z98.1 Arthrodesis status; R53.1 Weakness; M54.2 Cervicalgia; R20.0 Anesthesia of skin; I10 Essential (primary) hypertension; Z91.030 Bee allergy status; Z79.891 Long term (current) use of opiate analgesic
CPT/HCPCS: 99283; 96372; 72125; J1885

== ENCOUNTER 2018-05-13 01:22 | Observation (INO) | payer OTHER ==
[2018-05-13] MEDS ORDERED: ASPIRIN 81 MG TABLET, CHEWABLE PO ONE (02:58)
[2018-05-13] MEDS ORDERED: NORMAL SALINE 1000 ML 1,000 ML IV ONE ×2 (03:00→04:01)
[2018-05-13 03:27] LABS: ABSOLUTE EOSINOPHILS # (AUTO) 0.2 10^3/uL (0.0-0.6); ABSOLUTE LYMPHOCYTES (AUTO) 1.5 10^3/uL (0.5-4.7); ABSOLUTE MONOCYTES (AUTO) 0.5 10^3/uL (0.1-1.4); ABSOLUTE NEUT (AUTO) 2.6 10^3/uL (1.7-8.2); BASOPHILS % (AUTO) 0.8 % (0-2); EOSINOPHILS % (AUTO) 3.3 % (0-6); HEMATOCRIT 35.9 % (37.9-51.0); HEMOGLOBIN 12.3 g/dL (13.5-17.0); LYMPHOCYTES % (AUTO) 32.1 % (13-45); MEAN CORPUSCULAR HEMOGLOBIN 29.9 pg (27.0-33.4); MEAN CORPUSCULAR HGB CONC 34.3 g/dL (32.0-36.0); MEAN CORPUSCULAR VOLUME 87 fl (80-97); MONOCYTES % (AUTO) 9.6 % (3-13); PLATELET COUNT 197 10^3/uL (150-450); RED BLOOD COUNT 4.12 10^6/uL (4.35-5.55); RED CELL DISTRIBUTION WIDTH 14.6 % (11.5-14.0); SEGMENTED NEUTROPHILS % (AUTO) 54.2 % (42-78); TOTAL CELLS COUNTED % (AUTO) 100 %; WHITE BLOOD COUNT 4.8 10^3/uL (4.0-10.5)
[2018-05-13 03:35] LABS: INTERNATIONAL RATION (INR) 1.13; PROTHROMBIN TIME 15.1 SEC (11.4-15.4)
[2018-05-13 03:36] LABS: PARTIAL THROMBOPLASTIN TIME 28.2 SEC (23.5-35.8)
[2018-05-13 03:38] LABS: D-DIMER 0.55 ug/mL (0.00-0.50)
[2018-05-13 03:41] LABS: ALANINE AMINOTRANSFERASE 43 U/L (21-72); ALBUMIN 3.9 g/dL (3.5-5.0); ALKALINE PHOSPHATASE 74 U/L (38-126); ANION GAP 8 (5-19); ASPARTATE AMINO TRANSFERASE 53 U/L (17-59); BILIRUBIN,DIRECT 0.3 mg/dL (0.0-0.4); BILIRUBIN,TOTAL 0.8 mg/dL (0.2-1.3); BLOOD UREA NITROGEN 13 mg/dL (7-20); CALCIUM 9.4 mg/dL (8.4-10.2); CARBON DIOXIDE 29 mmol/L (22-30); CHLORIDE 100 mmol/L (98-107); CREATINE KINASE 638 U/L (55-170); GLUCOSE 124 mg/dL (75-110); POTASSIUM 3.8 mmol/L (3.6-5.0); SODIUM 137.2 mmol/L (137-145); TOTAL PROTEIN 6.9 g/dL (6.3-8.2)
[2018-05-13 03:53] LABS: CREATINE KINASE MB 2.48 ng/mL (<4.55)
[2018-05-13 03:59] LABS: NT PRO BNP < 11 pg/mL (<125); TROPONIN I < 0.012 ng/mL
--- NOTE | 2018-05-13 04:08 | ER Document Report ---
ED Cardiac - General Chief Complaint: Chest Pain Stated Complaint: CHEST PAIN Time Seen by Provider: 05/13/18 02:58 Primary Care Provider: JASEN CHAPPELL NP [Primary Care Provider] - Follow up as needed Mode of Arrival: Ambulatory Information source: Patient TRAVEL OUTSIDE OF THE [place] IN LAST 30 DAYS: No - HPI Patient complains to provider of: Chest pain Was the onset of pain: Sudden Is the pain a: New problem Chest pain location: Substernal Quality of pain: Pressure Chest pain radiation location: None Severity now: None Severity at worst: Severe Pain level currently: 4 Chest pain precipitating factors: At Rest Cardiac risk factors: Hypertension, + Family history Positive cardiac history: No Associated symptoms: Shortness of breath Exacerbated by: Denies Relieved by: Other - Aspirin Similar symptoms previously: No Recently seen / treated by doctor: No - Related Data Allergies/Adverse Reactions: No Known Drug Allergies Allergy (Verified 06/24/17 11:00) bee stings Allergy (Uncoded 06/24/17 11:00) Past Medical History - Social History Smoking Status: Never Smoker Chew tobacco use (# tins/day): No Frequency of alcohol use: None Drug Abuse: None Family History: Reviewed & Not Pertinent, Other - Kidney stones Patient has suicidal ideation: No Patient has homicidal ideation: No - Past Medical History Cardiac Medical History: Reports: Hx Hypertension - ON MEDS Denies: Hx Atrial Fibrillation, Hx Congestive Heart Failure, Hx Coronary Artery Disease, Hx DVT, Hx Heart Attack, Hx Hypercholesterolemia, Hx Peripheral Vascular Disease, Hx Pulmonary Embolism, Hx Heart Murmur Pulmonary Medical History: Reports: Hx Asthma - CHILD- NO MEDS CURRENTLY Denies: Hx Bronchitis, Hx COPD, Hx Pneumonia, Hx Respiratory Failure, Hx Sleep Apnea, Hx Tuberculosis Neurological Medical History: Reports: Hx Migraine. Denies: Hx Cerebrovascular Accident, Hx Seizures Endocrine Medical History: Denies: Hx Diabetes Mellitus Type 1, Hx Diabetes Mellitus Type 2 Renal/ Medical History: Reports: Hx Kidney Stones - H/O, Hx Renal Insufficiency. Denies: Hx Benign Prostatic Hyperplasia, Hx End Stage Renal Disease, Hx Peritoneal Dialysis Malignancy Medical History: Denies Hx Lung Cancer GI Medical History: Denies: Hx Hepatitis Musculoskeletal Medical History: Reports Hx Arthritis, Denies Hx Fibromyalgia, Denies Hx Multiple Sclerosis, Denies Hx Muscular Dystrophy Psychiatric Medical History: Reports: Hx Attention Deficit Hyperactivity Disorder, Hx Post Traumatic Stress Disorder - & ANXIETY Denies: Hx Bipolar Disorder, Hx Dementia, Hx Depression, Hx Schizophrenia Traumatic Medical History: Reports: Hx Fractures - 4X L ANKLE,L TIB/FIB, R ANKLE, L ARM, 3X R ARM, R FINGER Infectious Medical History: Denies: Hx Hepatitis Past Surgical History: Reports: Hx Orthopedic Surgery - left knee X3, right knee, bilateral carpal tunnel. Denies: Hx Appendectomy, Hx Bowel Surgery, Hx Cholecystectomy, Hx Coronary Artery Bypass Graft, Hx Gastric Bypass Surgery, Hx Herniorrhaphy, Hx Pacemaker, Hx Tonsillectomy - Immunizations Hx Diphtheria, Pertussis, Tetanus Vaccination: Yes Review of Systems - Review of Systems Constitutional: No symptoms reported EENT: No symptoms reported Cardiovascular: Chest pain Respiratory: Short of breath Gastrointestinal: Diarrhea, Nausea Genitourinary: No symptoms reported Male Genitourinary: No symptoms reported Musculoskeletal: No symptoms reported Skin: No symptoms reported Hematologic/Lymphatic: No symptoms reported Neurological/Psychological: No symptoms reported -: Yes All other systems reviewed and negative Physical Exam - Vital signs Vitals: Temp Pulse Resp BP Pulse Ox 98.3 F 116 H 22 H 143/79 H 94 05/13/18 01:41 05/13/18 01:41 05/13/18 01:41 05/13/18 01:41 05/13/18 01:41 Interpretation: Normal - General General appearance: Appears well, Alert - HEENT Head: Normocephalic, Atraumatic Eyes: Normal Pupils: PERRL - Respiratory Respiratory status: No respiratory distress Chest status: Nontender Breath sounds: Normal Chest palpation: Normal - Cardiovascular Rhythm: Regular Heart sounds: Normal auscultation Murmur: No - Abdominal Inspection: Normal Distension: No distension Bowel sounds: Normal Tenderness: Nontender Organomegaly: No organomegaly - Back Back: Normal, Nontender - Extremities General upper extremity: Normal inspection, Nontender, Normal color, Normal ROM, Normal temperature General lower extremity: Normal inspection, Nontender, Edema - 2+ bilateral pedal pitting edema., Normal color, Normal ROM, Normal temperature, Normal weight bearing. No: Boris's sign - Neurological Neuro grossly intact: Yes Cognition: Normal Orientation: AAOx4 Kitz[place]iller Coma Scale Eye Opening: Spontaneous Kitzmiller Coma Scale Verbal: Oriented Kitzmiller Coma Scale Motor: Obeys Commands Kitzmiller Coma Scale Total: 15 Speech: Normal Motor strength normal: LUE, RUE, LLE, RLE Sensory: Normal - Psychological Associated symptoms: Normal affect, Normal mood - Skin Skin Temperature: Warm Skin Moisture: Dry Skin Color: Normal Course - Vital Signs Vital signs: Temp Pulse Resp BP Pulse Ox 98.3 F 116 H 14 141/87 H 97 05/13/18 01:41 05/13/18 01:41 05/13/18 04:22 05/13/18 04:22 05/13/18 04:22 - Laboratory Result Diagrams: 05/13/18 03:13 05/13/18 03:13 Laboratory results interpreted by me: 05/13/18 05/13/18 05/13/18 03:13 03:13 03:13 RBC 4.12 L Hgb 12.3 L Hct 35.9 L RDW 14.6 H D-Dimer 0.55 H Creatinine 1.43 H Est GFR (Non-Af Amer) 54 L Glucose 124 H Creatine Kinase 638 H - Diagnostic Test Radiology reviewed: Reports reviewed - EKG Interpretation by Me EKG shows normal: Sinus rhythm Rate: Tachycardia - 119 Rhythm: NSR When compared to previous EKG there are: No significant change Additional EKG results interpreted by me: 05/13/18 04:08 No STEMI. - Transfer of Care Notes: 05/13/18 04:35 Patient care was discussed with Dr. Wood towards the hospitalist business analyst sales operations tonight. He will admit patient for further evaluation and management in the hospital. Discharge - Discharge Clinical Impression: Sinus tachycardia, Elevated d-dimer, Bilateral lower extremity edema, Acute kidney injury Chest pain Qualifiers: Chest pain type: unspecified Qualified Code(s): R07.9 - Chest pain, unspecified Condition: Stable Disposition: ADMITTED INPATIENT Admitting Provider: Hospitalist Unit Admitted: Telemetry Referrals: JASEN CHAPPELL NP [Primary Care Provider] - Follow up as needed
--- NOTE | 2018-05-13 04:32 | RADIOLOGY REPORT (SQ) ---
EXAM DESCRIPTION: XR CHEST 1 VIEW COMPLETED DATE/TME: 05/13/2018 02:59 CLINICAL HISTORY: 42 years Male, chest pain COMPARISON: 03/15/17 NUMBER OF VIEWS/TECHNIQUE: 1/AP FINDINGS: Adequate lung volume, small atelectasis or scar of the left lower lung field, normal cardiac silhouette, and intact bony thorax. IMPRESSION: No acute cardiopulmonary findings.
[2018-05-13] MEDS ORDERED: NITROGLYCERIN 0.4 MG/TAB 25 TAB/BOTTLE SL PRN (04:56)
--- NOTE | 2018-05-13 06:50 | PDOC H&P ---
History of Present Illness Admission Date/PCP: 05/13/18 04:38 JASEN CHAPPELL NP Patient complains of: Chest pain History of Present Illness: GOLDY GREEN is a 42 year old male past medical history of depression, PTSD, ADD, hypertension and opiate dependent chronic pain. Patient presents with Sudden onset of nonradiating retrosternal chest pain 4 out of 5 intensity occurring at rest relieved by aspirin associated with shortness of breath, nausea without vomiting. He otherwise complains of severe constipation and lower extremity edema. Patient had recent surgical treatment of cervical radiculopathy with subsequent sedentary state and recovery. In the emergency room he is found to have +1 edema of the legs bilaterally, abdominal distention, acute renal failure, elevated total CK but otherwise unremarkable cardiac workup. Patient admits to additional narcotics following treatment of cervical radiculopathy. Past Medical History Cardiac Medical History: Reports: Hypertension - ON MEDS Denies: Atrial Fibrillation, Congestive Heart Failure, Coronary Artery Disease, DVT, Myocardial Infarction, Hyperlipidema, Peripheral Vascular Disease, Pulmonary Embolism, Heart Murmur Pulmonary Medical History: Reports: Asthma - CHILD- NO MEDS CURRENTLY Denies: Bronchitis, Chronic Obstructive Pulmonary Disease (COPD), Pneumonia, Respiratory Failure, Sleep Apnea, Tuberculosis Neurological Medical History: Reports: Migraine Denies: Seizures Endocrine Medical History: Denies: Diabetes Mellitus Type 1, Diabetes Mellitus Type 2 Renal/ Medical History: Denies: End Stage Renal Disease Malignancy Medical History: Denies: Lung Cancer GI Medical History: Denies: Hepatitis Musculoskeltal Medical History: Reports: Arthritis Denies: Fibromyalgia Psychiatric Medical History: Reports: Attention Deficit Hyperactivity Disorder, Post Traumatic Stress Disorder - & ANXIETY Denies: Bipolar Disorder, Dementia, Depression Past Surgical History Past Surgical History: Reports: Orthopedic Surgery - left knee X3, right knee, bilateral carpal tunnel Denies: Appendectomy, Cholecystectomy, Coronary Artery Bypass Graft, Gastric Bypass Surgery, Herniorrhaphy, Pacemaker, Tonsillectomy Social History Information Source: Patient Lives with: Family Smoking Status: Never Smoker Frequency of Alcohol Use: None Hx Recreational Drug Use: No Drugs: None Hx Prescription Drug Abuse: No - Advance Directive Resuscitation Status: Full Code Family History Family History: CAD, Other - Kidney stones Parental Family History Reviewed: Yes Children Family History Reviewed: Yes Sibling(s) Family History Reviewed.: Yes Medication/Allergy Home Medications: Dextroamphetamine/Amphetamine [Adderall 20 mg Tablet] 1 tab PO DAILY 04/22/17 Gabapentin 300 mg PO TID 04/22/17 Lamotrigine [Lamictal] 25 mg PO DAILY 04/22/17 Lisinopril 20 mg PO DAILY 04/22/17 Oxycodone HCl/Acetaminophen [Oxycodone-Acetaminophen 5-325] 1 each PO Q6H PRN 04/22/17 Quetiapine Fumarate [Seroquel] 25 mg PO DAILY 04/22/17 Allergies/Adverse Reactions: No Known Drug Allergies Allergy (Verified 06/24/17 11:00) bee stings Allergy (Uncoded 06/24/17 11:00) Review of Systems Constitutional: PRESENT: as per HPI, fatigue, weight gain. ABSENT: headache(s), night sweats, weakness Eyes: ABSENT: visual disturbances Ears: ABSENT: hearing changes Cardiovascular: PRESENT: as per HPI, chest pain. ABSENT: dyspnea on exertion Respiratory: ABSENT: cough, hemoptysis Gastrointestinal: PRESENT: abdominal pain, bloating, constipation, nausea. ABSENT: diarrhea, hematemesis, hematochezia, vomiting Genitourinary: ABSENT: dysuria, hematuria Musculoskeletal: ABSENT: joint swelling Integumentary: ABSENT: rash, wounds Neurological: ABSENT: abnormal gait, abnormal speech, confusion, dizziness, focal weakness, syncope Psychiatric: PRESENT: as per HPI Endocrine: ABSENT: cold intolerance, heat intolerance, polydipsia, polyuria Hematologic/Lymphatic: ABSENT: easy bleeding, easy bruising Physical Exam Vital Signs: Temp Pulse Resp BP Pulse Ox 98.0 F 80 20 133/67 H 99 05/13/18 06:28 05/13/18 06:28 05/13/18 06:28 05/13/18 06:28 05/13/18 06:28 Intake & Output 05/11/18 05/12/18 05/13/18 11:59 11:59 11:59 Intake Total 1999 Balance 1999 Weight 140.6 kg General appearance: PRESENT: cooperative, mild distress, obese. ABSENT: dis heveled Head exam: PRESENT: atraumatic, normocephalic Eye exam: PRESENT: conjunctiva pink, EOMI, PERRLA. ABSENT: scleral icterus Ear exam: PRESENT: normal external ear exam Mouth exam: PRESENT: moist, tongue midline Neck exam: ABSENT: carotid bruit, JVD, lymphadenopathy, thyromegaly Respiratory exam: PRESENT: clear to auscultation parviz, crackles, tachypnea. ABSENT: rales, rhonchi, wheezes Cardiovascular exam: PRESENT: RRR. ABSENT: diastolic murmur, rubs, systolic murmur Pulses: PRESENT: normal dorsalis pedis pul Vascular exam: PRESENT: normal capillary refill GI/Abdominal exam: PRESENT: diminished bowel sounds, distended, hypoactive bowel sounds, soft, tenderness. ABSENT: rigid Rectal exam: PRESENT: deferred Extremities exam: PRESENT: full ROM, +1 edema. ABSENT: calf tenderness, clubbi ng, pedal edema Neurological exam: PRESENT: alert, awake, oriented to person, oriented to place, oriented to time, oriented to situation, CN II-XII grossly intact. ABSENT: mo tor sensory deficit Psychiatric exam: PRESENT: flat affect, normal mood, unusual affect. ABSENT: homicidal ideation, suicidal ideation Skin exam: PRESENT: dry, intact, warm. ABSENT: cyanosis, rash Results Laboratory Results: 05/13/18 03:13 05/13/18 03:13 05/13/18 05/13/18 05/13/18 03:13 03:13 03:13 WBC 4.8 RBC 4.12 L Hgb 12.3 L Hct 35.9 L MCV 87 MCH 29.9 MCHC 34.3 RDW 14.6 H Plt Count 197 Seg Neutrophils % 54.2 Lymphocytes % 32.1 Monocytes % 9.6 Eosinophils % 3.3 Basophils % 0.8 Absolute Neutrophils 2.6 Absolute Lymphocytes 1.5 Absolute Monocytes 0.5 Absolute Eosinophils 0.2 Absolute Basophils 0.0 Sodium 137.2 Potassium 3.8 Chloride 100 Carbon Dioxide 29 Anion Gap 8 BUN 13 Creatinine 1.43 H Est GFR ( Amer) > 60 Est GFR (Non-Af Amer) 54 L Glucose 124 H Calcium 9.4 Total Bilirubin 0.8 AST 53 ALT 43 Alkaline Phosphatase 74 Total Protein 6.9 Albumin 3.9 TSH 1.78 05/13/18 05/13/18 03:13 03:13 Creatine Kinase 638 H CK-MB (CK-2) 2.48 Troponin I < 0.012 NT-Pro-B Natriuret Pep < 11 Impressions: Chest X-Ray 05/13/18 02:59 IMPRESSION: No acute cardiopulmonary findings. Assessment and Plan - Diagnosis (1) Atypical chest pain Is this a current diagnosis for this admission?: Yes Plan: Atypical chest pain though the patient's pain is atypical there are multiple risk factors for coronary artery disease and subsequently will observe and evaluation of acute coronary syndrome versus coronary artery disease with anginal equivalents. Cardiac monitoring blood pressure Q6 hours ,TSH, lipid profile, serial cardiac enzymes and cardiac stress test. VQ scan ordered in the emergency department pending. (2) Constipation Is this a current diagnosis for this admission?: Yes Plan: Secondary to opiate dependence, bowel regiment and lactulose trial, consider Fleet enema (3) Acute kidney injury Is this a current diagnosis for this admission?: Yes Plan: Possibly secondary to rhabdomyolysis with sedentary state, avoid nephrotoxic meds and doses reevaluate chemistry after fluid challenge (4) Bilateral lower extremity edema Is this a current diagnosis for this admission?: Yes Plan: Most likely secondary to venous stasis with recent immobility. PIOTR stockings ordered. - Time Time Spent with patient: 35 or more minutes - Inpatient Certification Medical Necessity: Need Close Monitoring Due to Risk of Patient Decompensation
[2018-05-13] MEDS: HEPARIN SOD (PORCINE) 5,000 UNIT/ML 1 ML SYRINGE SUBCUT SCH ×3 (07:52→22:08)
[2018-05-13] MEDS: OXYCODONE-ACETAMINOPHEN 5-325 MG TABLET PO PRN ×3 (07:52→22:14)
[2018-05-13] MEDS ORDERED: QUETIAPINE FUMARATE 25 MG TABLET PO SCH ×2 (10:00→22:00)
[2018-05-13 11:28] LABS: TROPONIN I < 0.012 ng/mL
[2018-05-13] MEDS: LACTULOSE SYRUP 20 GM/30 ML UDCUP PO SCH ×2 (12:00→19:11)
[2018-05-13] MEDS: GABAPENTIN 300 MG CAPSULE PO SCH ×3 (12:00→19:11)
[2018-05-13] MEDS: LISINOPRIL 10 MG TABLET PO SCH (12:01)
[2018-05-13 12:25] LABS: URINE BARBITURATES SCREEN NEGATIVE; URINE BENZODIAZEPINES SCREEN NEGATIVE; URINE COCAINE SCREEN NEGATIVE; URINE METHADONE SCREEN NEGATIVE; URINE PHENCYCLIDINE SCREEN NEGATIVE
--- NOTE | 2018-05-13 12:25 | RADIOLOGY REPORT (SQ) ---
EXAM DESCRIPTION: NM LUNG VENT/PERF SCAN COMPLETED DATE/TIME: 05/13/2018 12:16 pm REASON FOR STUDY: Elevated D-Dimer COMPARISON: Radiographs from same date. RADIONUCLIDE AND DOSE: 5.13 millicuries TC-99m MAA Intravenous 29.6 millicuries TC-99m DTPA Inhaled aerosol TECHNIQUE: Eight views of the lungs acquired post ventilation of DTPA aerosol. Eight matching views of the lungs acquired following injection of MAA. LIMITATIONS: None. FINDINGS: VENTILATION: Symmetric and homogeneous distribution of DTPA aerosol during ventilatory pha se. No significant areas of photopenia. PERFUSION: Perfusion images with normal homogenous activity and no wedge-shaped or segmental defects. No ventilation-perfusion mismatches. OTHER: No other significant finding. IMPRESSION: NORMAL VENTILATION-PERFUSION LUNG SCAN. NEGATIVE FOR PULMONARY EMBOLI. TECHNICAL DOCUMENTATION: JOB ID: [id number] [employer]- All Rights Reserved Reading location - IP/workstation name: [email or web address]
[2018-05-13 12:29] LABS: URINE AMPHETAMINES SCREEN UNCONFIRMED POSITIVE; URINE MARIJUANA (THC) SCREEN UNCONFIRMED POSITIVE
--- NOTE | 2018-05-13 13:03 | XCELERA REPORT ---
[address] [facility] [address] Lower Extremity Venous Evaluation Procedure: Color flow and duplex imaging bilaterally of the veins of the lower extremities as well as the Common Femoral veins. Right Sided Venous Evaluation Normal vessel filling wall to wall, compression and augmentation as well as Colour flow down to the infrageniculate veins. Left Sided Venous Evaluation Normal vessel filling wall to wall, compression and augmentation as well as Colour flow down to the infrageniculate veins. Interpretation Summary No duplex evidence of DVT or obstruction in the bilateral lower extremities. Name: GOLDY GREEN Age: 42 yrs Gender: Male : 1975 Patient Status: Inpatient Patient Location: [address] [place] [address] Study Date: 05/13/2018 08:21 AM Reason For Study: Bilateral leg swelling, Ordering Physician: UMBERTO HARDIN Performed By: Giovany Carter : UMBERTO HARDIN > Oleg Harrell
--- NOTE | 2018-05-13 14:47 | EKG REPORT ---
SEVERITY:- BORDERLINE ECG - SINUS TACHYCARDIA PROBABLE LEFT ATRIAL ABNORMALITY BORDERLINE T ABNORMALITIES, INFERIOR LEADS : Confirmed by: Elayne Plunkett MD 13-May-2018 14:46:51
--- NOTE | 2018-05-13 17:07 | RADIOLOGY REPORT (SQ) ---
EXAM DESCRIPTION: CT ABD/PELVIS ORAL ONLY COMPLETED DATE/TIME: 05/13/2018 4:55 pm REASON FOR STUDY: bright red blood per rectum, bilateral leg edema COMPARISON: None. TECHNIQUE: CT scan of the abdomen and pelvis performed with oral contrast and no intravenous contras t. Images reviewed with lung, soft tissue, and bone windows. Reconstructed coronal and sagittal MPR i mages reviewed. All images stored on PACS. All CT scanners at this facility use dose modulation, iterative reconstruction, and/or weight based d osing when appropriate to reduce radiation dose to as low as reasonably achievable (ALARA). [facility]: Dose Right [facility]: CareDose [facility]: Dose Right [facility]: Teradose 4D [facility]: [employer] RADIATION DOSE: CT Rad equipment meets quality standard of care and radiation dose reduction techniq ues were employed. CTDIvol: 28.5 mGy. DLP: 1631 mGy-cm.mGy. LIMITATIONS: None. FINDINGS: LOWER CHEST: No significant findings. No nodules or infiltrates. NON-CONTRASTED LIVER, SPLEEN, ADRENALS: Evaluation limited by lack of IV contrast. No identified sign ificant masses. PANCREAS: No masses. No peripancreatic inflammatory changes. GALLBLADDER: No identified stones by CT criteria. No inflammatory changes to suggest cholecystitis. RIGHT KIDNEY AND URETER: No solid masses. No significant calcification. No hydronephrosis or hydroure ter. LEFT KIDNEY AND URETER: No solid masses. No significant calcification. No hydronephrosis or hydrouret er. AORTA AND RETROPERITONEUM: No aneurysm. No retroperitoneal masses or adenopathy. BOWEL AND PERITONEAL CAVITY: No obvious masses or inflammatory changes. No free fluid. APPENDIX: Normal. PELVIS, BLADDER, AND ABDOMINAL WALL: No abnormal pelvic masses. No abdominal wall hernias. Bladder un remarkable. BONES: No significant findings. OTHER: No other significant finding. IMPRESSION: NO SIGNIFICANT OR ACUTE ABDOMINAL PROCESS. TECHNICAL DOCUMENTATION: JOB ID: [id number] Quality ID # [id number]: Final reports with documentation of one or more dose reduction techniques (e.g., Au tomated exposure control, adjustment of the mA and/or kV according to patient size, use of iterative reconstruction technique) 2010 [employer]- All Rights Reserved Reading location - IP/workstation name: [email or web address]
--- NOTE | 2018-05-13 17:18 | Progress Note ---
Provider Note Provider Note: He is not had any chest pain. Troponins negative x3. A stress test is scheduled for tomorrow. He had had some bright red blood per rectum yesterday, and he took a picture of the toilet paper because it was such a substantial amount. His abdominal CT today was done with oral contrast and did not show any masses, but the scan was done without IV contrast because of his acute kidney injury. 1 of his main concerns is the edema that he is accumulated over the last few weeks. He is not had any abdominal surgery and he is not had any history of radiation therapy. His lower extremity ultrasound was negative for DVT bilaterally. Since there is no evidence of DVT, no evidence of heart failure, no evidence of substantial liver disease, and no evidence of an obstructing mass in his abdomen, I decided to check a urinalysis. This was done because of his hypertension, his lower extremity edema, and his acute kidney injury. I am checking a urine to see if he is got any evidence of proteinuria or hematuria. It is noted that his serum protein levels are normal, and his albumin level is normal. If he does not have any evidence of a nephrotic syndrome or a nephritis, it could be that he just has a lymphedema, but it was in a fairly abrupt onset for chronic lymphedema.
[2018-05-13 18:19] LABS: APPEARANCE,URINE CLEAR; BILIRUBIN,URINE NEGATIVE (NEGATIVE); COLOR,URINE YELLOW; GLUCOSE, URINE NEGATIVE (NEGATIVE); KETONES,URINE NEGATIVE (NEGATIVE); LEUKOCYTE ESTERASE,URINE NEGATIVE (NEGATIVE); NITRITE,URINE NEGATIVE (NEGATIVE); PROTEIN,URINE NEGATIVE (NEGATIVE); URINE SPECIFIC GRAVITY 1.013; UROBILINOGEN,URINE NEGATIVE mg/dL (<2.0)
[2018-05-13] MEDS ORDERED: ATORVASTATIN CALCIUM 40 MG TABLET PO SCH (22:00)
[2018-05-13] MEDS ORDERED: QUETIAPINE FUMARATE 100 MG TABLET PO ONE (23:45)
[2018-05-14] MEDS: HEPARIN SOD (PORCINE) 5,000 UNIT/ML 1 ML SYRINGE SUBCUT SCH ×2 (05:14→14:17)
[2018-05-14] MEDS: OXYCODONE-ACETAMINOPHEN 5-325 MG TABLET PO PRN ×2 (07:40→14:16)
[2018-05-14] MEDS ORDERED: QUETIAPINE FUMARATE 25 MG TABLET PO SCH (08:00)
[2018-05-14] MEDS: LISINOPRIL 10 MG TABLET PO SCH (10:25)
[2018-05-14] MEDS: GABAPENTIN 300 MG CAPSULE PO SCH ×3 (10:28→19:29)
[2018-05-14] MEDS: LACTULOSE SYRUP 20 GM/30 ML UDCUP PO SCH ×2 (10:28→19:29)
[2018-05-14] MEDS ORDERED: MORPHINE SULFATE 10 MG/ML INJ IV PRN (15:48)
[2018-05-14] MEDS ORDERED: MORPHINE SULFATE 10 MG/ML INJ ONE (16:00)
[2018-05-14 16:21] VITALS: BP 162/103
[2018-05-14] MEDS ORDERED: OXYCODONE-ACETAMINOPHEN 5-325 MG TABLET PO PRN (16:30)
[2018-05-14] MEDS ORDERED: BISACODYL 5 MG TABEC PO PRN (16:51)
[2018-05-14] MEDS ORDERED: (PENDING PHARMACY ID) (Linaclotide 145 MCG) PO SCH (17:00)
[2018-05-14 17:05] LABS: CHOLESTEROL 186.38 mg/dL (0-200); TRIGLYCERIDES 267 mg/dL (<150)
[2018-05-14 17:16] LABS: DIRECT LDL 102 mg/dL (<100)
[2018-05-14 17:24] LABS: VLDL CHOLESTEROL 53.4 mg/dL (10-31)
[2018-05-14] MEDS ORDERED: DOCUSATE SODIUM 100 MG CAPSULE PO SCH (18:00)
[2018-05-14] MEDS ORDERED: FENTANYL 50 MCG/HR PATCH.TD72 TD ONE (18:00)
--- NOTE | 2018-05-14 19:37 | PDOC PROGRESS REPORT ---
Subjective Progress Note for:: 05/14/18 Subjective:: GOLDY GREEN is a 42 year old male past medical history of depression, PTSD, ADD, hypertension and opiate dependent chronic pain. Patient presents with sudden onset of nonradiating retrosternal chest pain 4 out of 5 intensity occurring at rest relieved by aspirin associated with shortness of breath, nausea without vomiting. He otherwise complains of severe constipation and lower extremity edema. Patient had recent surgical treatment of cervical radiculopathy with subsequent sedentary state and recovery. In the emergency room he is found to have 1+ edema of the legs bilaterally, abdominal distention, acute renal failure, elevated total CK but otherwise unremarkable cardiac workup. Patient admits to additional narcotics following treatment of cervical radiculopathy. No acute events overnight. Vision has not had any recurrence of his chest pain however still, planing of persistent neck and radicular pain. Patient has had radiofrequency ablation of the cervical peripheral nerves as well as multiple neck surgeries for his chronic DJD however with persistent pain. Patient sees pain management physician as outpatient but stating the treatment that he has been given is not very effective. Patient denies any symptomatology of heart, liver or renal failure stating that he is not been moving too much because of persistent weight gain and pain which could have resulted in his lower extremity edema. Denies any fever, chest pain, shortness of breath, nausea, vomiting, diarrhea or any urinary symptoms. Reason For Visit: CHEST PAIN, CONSTIPATION, CHRONIC PAIN, ARF Physical Exam Vital Signs: Temp Pulse Resp BP Pulse Ox 97.9 F 90 17 162/103 H 91 L 05/14/18 16:03 05/14/18 16:03 05/14/18 16:03 05/14/18 16:03 05/14/18 16:03 Intake & Output 05/13/18 05/14/18 05/15/18 06:59 06:59 06:59 Intake Total 2000 200 480 Output Total 300 Balance 2000 -100 480 Weight 151.8 kg 149.4 kg General appearance: PRESENT: obese Head exam: PRESENT: atraumatic, normocephalic Respiratory exam: PRESENT: clear to auscultation parviz. ABSENT: rales, rhonchi, wheezes Cardiovascular exam: PRESENT: RRR. ABSENT: diastolic murmur, rubs, systolic murmur GI/Abdominal exam: PRESENT: normal bowel sounds, soft. ABSENT: distended, guarding, mass, organolmegaly, rebound, tenderness Extremities exam: PRESENT: full ROM, tenderness - Posterior neck. ABSENT: calf tenderness, clubbing, pedal edema Neurological exam: PRESENT: alert, awake, oriented to person, oriented to place, oriented to time, oriented to situation, CN II-XII grossly intact. ABSENT: motor sensory deficit Results Laboratory Results: 05/13/18 03:13 05/13/18 03:13 05/14/18 16:38 Triglycerides 267 H Cholesterol 186.38 LDL Cholesterol Direct 102 H VLDL Cholesterol 53.4 H HDL Cholesterol 37 L 05/13/18 05/13/18 05/13/18 03:13 03:13 10:30 Creatine Kinase 638 H 578 H CK-MB (CK-2) 2.48 Troponin I < 0.012 NT-Pro-B Natriuret Pep < 11 05/13/18 05/13/18 05/13/18 10:30 15:11 21:01 Creatine Kinase CK-MB (CK-2) 2.20 Troponin I < 0.012 < 0.012 < 0.012 NT-Pro-B Natriuret Pep Impressions: Abdomen/Pelvis CT 05/13/18 00:00 IMPRESSION: NO SIGNIFICANT OR ACUTE ABDOMINAL PROCESS. Chest X-Ray 05/13/18 02:59 IMPRESSION: No acute cardiopulmonary findings. Lung Scan-VQ NM 05/13/18 04:01 IMPRESSION: NORMAL VENTILATION-PERFUSION LUNG SCAN. NEGATIVE FOR PULMONARY EMBOLI. Assessment and Plan - Diagnosis (1) Atypical chest pain Is this a current diagnosis for this admission?: Yes Plan: Resolved. Troponins negative x3. EKG no acute changes. BNP within normal limits. TSH within normal limits. Pending 2D echo. VQ scan negative for any PE. Bilateral lower extremity Doppler negative for any DVT. (2) Acute kidney injury Is this a current diagnosis for this admission?: Yes Plan: Improving. Nonoliguric. Possibly secondary to rhabdomyolysis with sedentary state. Avoid nephrotoxic meds monitor volume status and electrolytes. Urinalysis negative for proteinuria hematuria or glucosuria. (3) Bilateral lower extremity edema Is this a current diagnosis for this admission?: Yes Plan: Most likely secondary to venous stasis with recent immobility. BNP within normal limits. TSH within normal limits. Pending 2D echo. VQ scan negative for any PE. Bilateral lower extremity Doppler negative for any DVT. CT abdomen negative for any masses. Urinalysis negative for any proteinuria or hematuria. Due to venous stasis caused by immobility. Continue lower extremity elevation and compression stockings. (4) Chronic neck pain Is this a current diagnosis for this admission?: No Plan: Status post multiple neck surgeries and radiofrequency ablation. Continue supportive measures. Outpatient pain management follow-up. (5) Opiate dependence, continuous Is this a current diagnosis for this admission?: No Plan: Due to chronic neck pain. Restart home meds. This meds as needed. Outpatient pain management follow-up. (6) Constipation Is this a current diagnosis for this admission?: Yes Plan: Secondary to opiate dependence, will restart home meds and bowel regimen.
--- NOTE | 2018-05-14 20:59 | EKG REPORT ---
SEVERITY:- NORMAL ECG - SINUS RHYTHM : Confirmed by: Elayne Plunkett MD 14-May-2018 20:59:08
--- NOTE | 2018-05-14 21:30 | XCELERA REPORT ---
[address] [address] Transthoracic Echocardiogram Report Name: GOLDY GREEN Age: 42 yrs Gender: Male : 1975 Patient Status: Inpatient Patient Location: [address] [place] [address] Study Date: 05/14/2018 06:26 PM Height: 71 in Weight: 329 lb BSA: 2.6 m2 Procedure: A two-dimensional transthoracic echocardiogram with color flow Doppler was performed. Study Quality: Poor. The study was technically difficult with many images being suboptimal in quality. Images were not obtained from all of the standard acoustic windows due to the limited scope of the study. Reason For Study: CHF History: CHF. Ordering Physician: MAXIMO MOORE Performed By: Isha Queen Interpretation Summary The left ventricle is normal in size. There is normal left ventricular wall thickness. No True apical 2 chamber views obtained.Hence cannot comment on the apical anterior , the basal anterior, the basal inferior and apical inferior hills.The mid anterior , the mid inferior and the rest of the LV hills contract normally. .Normal LVEF is normal and is greater than 65% in the limited views. Doppler measurements suggest impaired left ventricular relaxation, which is associated with grade I/IV or mild diastolic dysfunction The right ventricle is not well visualized secondary to technical limitations The left atrial size is normal. Right atrium not well visualized secondary to technical limitations There is no evidence of mitral valve prolapse. There is no mitral valve stenosis. There is no mitral regurgitation noted. There is no aortic valve stenosis No aortic regurgitation is present. There is no tricuspid stenosis. There is a trace amount of tricuspid regurgitation RVSP is 32 mm of Hg , with RA mean of 10 and is just above te uper limits of normal 30 mm of Hg. The aortic root is not well visualized. The inferior vena cava was not visualized There is no pericardial effusion. MMode/2D Measurements & Calculations RVDd: 2.7 cm LVIDd: 4.6 cm FS: 33.2 % Ao root diam: 2.6 cm IVSd: 1.1 cm LVIDs: 3.1 cm EDV(Teich): 96.6 ml Ao root area: 5.4 cm2 LVPWd: 0.99 cm ESV(Teich): 36.8 ml LA dimension: 2.8 cm EF(Teich): 61.9 % Doppler Measurements & Calculations MV E max kiki: MV P1/2t max kiki: Ao V2 max: LV V1 max P.0 cm/sec 103.4 cm/sec 130.3 cm/sec 3.7 mmHg MV A max kiki: MV P1/2t: 47.2 msec Ao max P.8 mmHg LV V1 max: 91.3 cm/sec MVA(P1/2t): 4.7 cm2 96.7 cm/sec MV E/A: 0.85 MV dec slope: 641.5 cm/sec2 MV dec time: 0.18 sec PA V2 max: TR max kiki: MV P1/2t-pr_phl: 123.5 cm/sec 235.4 cm/sec 47.2 msec PA max P.1 mmHgTR max P.2 mmHg Left Ventricle The left ventricle is normal in size. There is normal left ventricular wall thickness. No True apical 2 chamber views obtained.Hence cannot comment on the apical anterior , the basal anterior, the basal inferior and apical inferior hills.The mid anterior , the mid inferior and the rest of the LV hills contract normally. .Normal LVEF is normal and is greater than 65% in the limited views. Doppler measurements suggest impaired left ventricular relaxation, which is associated with grade I/IV or mild diastolic dysfunction. There is no thrombus. Right Ventricle The right ventricle is not well visualized secondary to technical limitations. Atria Right atrium not well visualized secondary to technical limitations. The left atrial size is normal. Mitral Valve There is no evidence of mitral valve prolapse. There is no mitral valve stenosis. There is no mitral regurgitation noted. Aortic Valve There is no aortic valve stenosis. No aortic regurgitation is present. Tricuspid Valve There is no tricuspid stenosis. There is a trace amount of tricuspid regurgitation. RVSP is 32 mm of Hg , with RA mean of 10 and is just above te uper limits of normal 30 mm of Hg. Pulmonic Valve There is no pulmonic valvular stenosis. There is no pulmonic valvular regurgitation. Great Vessels The aortic root is not well visualized. The inferior vena cava was not visualized. Effusions There is no pericardial effusion. : MAXIMO MOORE > Elayne Plunkett
[2018-05-14] MEDS ORDERED: QUETIAPINE FUMARATE 100 MG TABLET PO SCH (22:00)
--- NOTE | 2018-05-15 15:43 | Left Against Medical Advice ---
Against Medical Advice Admission Date/Time: 05/13/18 04:38 Primary Care Provider: JASEN CHAPPELL NP Date of Patient Emmigration: 05/14/18 - Diagnosis: (1) Atypical chest pain Is this a current diagnosis for this admission?: Yes (2) Acute kidney injury Is this a current diagnosis for this admission?: Yes (3) Bilateral lower extremity edema Is this a current diagnosis for this admission?: Yes (4) Chronic neck pain Is this a current diagnosis for this admission?: No (5) Opiate dependence, continuous Is this a current diagnosis for this admission?: No (6) Constipation Is this a current diagnosis for this admission?: Yes - Summary: Summary: Please see Admission and Progress Notes as well. GOLDY GREEN is a 42 M, who LEFT AGAINST MEDICAL ADVICE. The Patient was admitted on 05/13/18 04:38. Summary: (1) Atypical chest pain Resolved. Troponins negative x3. EKG no acute changes. BNP within normal limits. TSH within normal limits. 2D Echo EF 65%. VQ scan negative for any PE. Bilateral lower extremity Doppler negative for any DVT. (2) Acute kidney injury Improving. Nonoliguric. Possibly secondary to rhabdomyolysis with sedentary state. Avoid nephrotoxic meds monitor volume status and electrolytes. Urinalysis negative for proteinuria hematuria or glucosuria. (3) Bilateral lower extremity edema Most likely secondary to venous stasis with recent immobility. BNP within normal limits. TSH within normal limits. 2D Echo EF 65%. VQ scan negative for any PE. Bilateral lower extremity Doppler negative for any DVT. CT abdomen negative for any masses. Urinalysis negative for any proteinuria or hematuria. Due to venous stasis caused by immobility. Continue lower extremity elevation and compression stockings. (4) Chronic neck pain Status post multiple neck surgeries and radiofrequency ablation. Continue supportive measures. Outpatient pain management follow-up. (5) Opiate dependence, continuous Due to chronic neck pain. Restart home meds. This meds as needed. Outpatient pain management follow-up. (6) Constipation Secondary to opiate dependence, will restart home meds and bowel regimen.
--- NOTE | 2018-05-17 12:06 | CONSULTATION REPORT E ---
Consultation Report NAME: GOLDY GREEN : 1975 AGE: 42Y DATE: 05/14/2018 326 A TO: JORGE TAPIA PA-C FROM: LYNSEY VELAZQUEZ M.D. Requesting Physician PAIN MANAGEMENT CONSULTATION CHIEF COMPLAINT: Neck pain. HISTORY OF PRESENT ILLNESS: Patient is a 42-year-old -[place] male with past medical history of hypertension, PTSD, attention deficit disorder and IBS, who presented to the ER with chest pain and edema in his bilateral lower extremities, and was admitted. Pain Management was consulted due to chronic neck pain status post cervical fusion [address] Dunn. His neck pain has flared up over the past week. He states he had a cervical radiofrequency ablation completed 1 week ago through [facility], Dr. Inga Jean. He states he has had increasing neck pain since that time. He notes constant achy pain with intermittent burning pain on the left side of his neck. He states his pain is worsening with cervical range of motion. He gets chronic intermittent burning pain, numbness and tingling in his left upper extremity, to his third and fifth fingers, which has not worsened and has stayed stable. He denies any weakness in his bilateral upper extremities. He states his chest pain has resolved and he currently only has his chronic neck pain. He notes he is tired of being in pain. He is tired of taking medications and he wants his neck pain to be fixed. He denies any lower back pain currently. In regards to pain medicationss, he takes [place] 325 t.i.d. on an outpatient basis, which is not really effective for his current pain. He also takes Neurontin, which is not helpful either, and makes him feel nauseous. He previously tried Demerol, which was helpful; Dilaudid, which was not helpful; Percocet, which was somewhat helpful, but only at the 10 mg dosage, not the 5 mg dosage. He was given 1 dose of IV morphine in the hospital, which was not helpful at all. He thought they had just given him a saline injection since it was so unhelpful. He has never tried Lyrica or any long-acting opiates. He voices frustration that he continues to have pain and he wants a permanent solution for his pain. There were no further voiced concerns at the time. PAST MEDICAL HISTORY: 1. Hypertension. 2. PTSD. 3. Attention deficit disorder. 4. Irritable bowel syndrome. PAST SURGICAL HISTORY: 1. Cervical fusion in April 2017. 2. Left ACL repair x3. 3. Right ACL repair x2. 4. Bilateral carpal tunnel release. 5. Bilateral ganglion cyst removal ALLERGIES: No known drug allergies. MEDICATIONS: As per chart. SOCIAL HISTORY: He lives with his . He denies smoking, drug or alcohol use. REVIEW OF SYSTEMS: CONSTITUTIONAL: He denies fevers, chills, stiffness, weakness, loss of appetite, but is positive for fatigue and weight gain over the past year. SKIN: He denies bruising, itching, diaphoresis. HEENT: Denies visual changes or difficulty hearing. CVS: Denies current chest pain, but is positive for edema. Also denies heart palpitations. RESPIRATORY: Denies cough, sputum production. GI: Denies nausea, vomiting, diarrhea. He denies current abdominal pain, but is positive for constipation and bloating. URINARY: He denies dysuria or hematuria. MUSCULOSKELETAL: Positive for neck pain. NEUROLOGIC: He denies weakness, bowel or bladder incontinence, saddle anesthesia, seizures, tremors, loss of consciousness. ENDOCRINE: Positive for weight gain over the past year, but he denies cold or heat intolerance or polyuria. PSYCHIATRIC: Denies SI or HI. Review of systems is otherwise negative. PHYSICAL EXAMINATION: GENERAL: On examination, patient is an obese 42-year-old -[place] male who appears stated age and is awake, alert and oriented to person, place and time. He does not appear to be in acute distress. When I arrived, he was sitting upright in his hospital bed, texting on his cell phone. VITAL SIGNS: Currently stable. SKIN: Warm and dry. He is not diaphoretic. HEENT: Normocephalic, atraumatic. Extraocular muscles are intact. CVS: Radial pulses are 2+ bilaterally. LUNGS: Respirations nonlabored. MUSCULOSKELETAL: He has full cervical range of motion. Prior injection sites along the left side of his neck are clean, dry and intact, and there is no erythema or drainage noted. He is tender to palpation over his cervical paravertebral muscles and trapezius, worse over the left side. He is diffusely tender to palpation throughout the midline of his cervical spine. No thoracic or lumbar tenderness. NEUROLOGIC: His bilateral upper extremity strength is 5/5. Upper extremity reflexes are 2+ bilaterally. PSYCHIATRIC: Patient is alert and oriented to person, place and time. IMPRESSION AND PLAN: Flare of chronic neck pain. The patient is 1 week status post cervical radiofrequency. Discussed that it is normal to incur flares of pain for a few weeks after radiofrequency and that it can take up to 6 weeks to receive relief from the radiofrequency. I do not believe a cervical MRI is warranted on an inpatient basis as he has no new radicular symptoms and denies weakness in BUE. I recommend that we discontinue Neurontin, as it is not helpful and is making him nauseous, and trial Lyrica instead for the radicular pain as well as for a possible post procedure neuritis. He is currently receiving Percocet 5/325 every 4 hours, which is only mildly helpful. We will increase this to 10/325 every 4 hours as needed while he is inpatient. He is to follow up with his Pain Management clinic upon discharge for further recommendations regarding his chronic opioid regimen. Continue cardiac workup. Per notes, he has a cardiac stress test scheduled for tomorrow. Patient was discussed with Dr. Yury Estraad. Thank you for the consult. DICTATING PHYSICIAN: JORGE TAPIA PA-C [id number] PHY#: [id number] ID: [id number] JOB#: [id number] ACCT: [id number] cc:JORGE TAPIA PA-C > MTDD
== END 2018-05-14 19:46 | disposition left against medical advice (07) ==
LOC: ER 01:22 → EH 04:38 → INTOOBSV 04:38 → 3S 06:51
PROVIDERS: ADMIT Internal Medicine; ATTEND Internal Medicine
DX: R07.89 Other chest pain (principal); N17.9 Acute kidney failure, unspecified; R60.0 Localized edema; G89.29 Other chronic pain; M54.2 Cervicalgia; F11.20 Opioid dependence, uncomplicated; K59.03 Drug induced constipation; T40.605A Adverse effect of unspecified narcotics, initial encounter; Z53.21 Procedure and treatment not carried out due to patient leaving prior to being seen by health care provider; R20.0 Anesthesia of skin; R20.2 Paresthesia of skin; Z98.1 Arthrodesis status; M54.12 Radiculopathy, cervical region; I10 Essential (primary) hypertension; R06.02 Shortness of breath; F98.8 Other specified behavioral and emotional disorders with onset usually occurring in childhood and adolescence; R00.0 Tachycardia, unspecified; M19.90 Unspecified osteoarthritis, unspecified site; Z98.890 Other specified postprocedural states; Z87.442 Personal history of urinary calculi; R79.89 Other specified abnormal findings of blood chemistry
CPT/HCPCS: 93005 ×2; 99285; 96360; 36415 ×2; 82553; 82550; 84443; 85025; 85610; 85730; 80053; 81001; 84484; 80307; 83036; 85379; 80061; 83880; 93970 ×2; 93306; 71045; 78582; 74176; 93010 ×2; G0378 ×3; A9540; A9567; J1644; J2270; J3490 ×2; J7030; Q9969

== ENCOUNTER 2018-06-15 18:17 | Emergency (ER) | payer OTHER ==
[2018-06-15] MEDS ORDERED: ACETAMINOPHEN 325 MG TABLET PO ONE (20:08)
--- NOTE | 2018-06-15 20:11 | ER Document Report ---
HPI - HPI Patient complains to provider of: Right hand injury Time Seen by Provider: 06/15/18 20:01 Onset: This afternoon Onset/Duration: Sudden Quality of pain: Achy Pain Level: 4 Context: Patient states that he stumbled and caught his hand in a rail this afternoon. Patient is right-hand dominant. Patient complains of right hand tenderness with swelling. Associated Symptoms: Other - Right hand injury Exacerbated by: Movement Relieved by: Remaining still Similar symptoms previously: No Recently seen / treated by doctor: No - ROS ROS below otherwise negative: Yes Systems Reviewed and Negative: Yes All other systems reviewed and negative - NEURO Neurology: DENIES: Weakness - GASTROINTESTINAL Gastrointestinal: DENIES: Nausea - MUSCULOSKELETAL Musculoskeletal: REPORTS: Extremity pain, Swelling - DERM Skin Color: Normal Skin Problems: None Past Medical History - General Information source: Patient - Social History Smoking Status: Never Smoker Frequency of alcohol use: None Drug Abuse: None Occupation: [employer] Lives with: Family Family History: CAD, Other - Kidney stones - Past Medical History Cardiac Medical History: Reports: Hx Hypertension - ON MEDS Pulmonary Medical History: Reports: Hx Asthma - CHILD- NO MEDS CURRENTLY Neurological Medical History: Reports: Hx Migraine. Denies: Hx Cerebrovascular Accident, Hx Seizures Endocrine Medical History: Renal/ Medical History: Reports: Hx Kidney Stones - H/O, Hx Renal Insufficiency Malignancy Medical History: Denies Hx Lung Cancer GI Medical History: Denies: Hx Hepatitis Musculoskeletal Medical History: Reports Hx Arthritis Psychiatric Medical History: Reports: Hx Attention Deficit Hyperactivity Disorder, Hx Post Traumatic Stress Disorder - & ANXIETY Traumatic Medical History: Reports: Hx Fractures - 4X L ANKLE,L TIB/FIB, R ANKLE, L ARM, 3X R ARM, R FINGER Infectious Medical History: Denies: Hx Hepatitis Past Surgical History: Reports: Hx Orthopedic Surgery - left knee X3, right knee, bilateral carpal tunnel - Immunizations Hx Diphtheria, Pertussis, Tetanus Vaccination: Yes Vertical Provider Document - CONSTITUTIONAL Agree With Documented VS: Yes Exam Limitations: No Limitations General Appearance: WD/WN, No Apparent Distress - INFECTION CONTROL TRAVEL OUTSIDE OF THE [place] IN LAST 30 DAYS: No - HEENT HEENT: Atraumatic, Normocephalic - NECK Neck: Normal Inspection - RESPIRATORY Respiratory: No Respiratory Distress - CARDIOVASCULAR Pulses: Normal: Radial - MUSCULOSKELETAL/EXTREMETIES Musculoskeletal/Extremeties: MAEW, Tender - Tenderness over right third fourth and fifth metacarpals with 2+ edema, Edema. negative: Eccymosis - NEURO Level of Consciousness: Awake, Alert, Appropriate Motor/Sensory: No Motor Deficit Notes: Patient with good flexion extension of fingers of right hand against resistance. Patient able to oppose all fingers without difficulty. - DERM Integumentary: Warm, Dry, No Rash Course - Re-evaluation Re-evalutation: 06/15/18 20:54 Patient without any acute fracture noted on x-ray. Will treat symptomatically at this time. Patient does take chronic narcotics at home for chronic neck and back pain. - Vital Signs Vital signs: Temp Pulse Resp BP Pulse Ox 99.2 F 81 16 136/94 H 96 06/15/18 18:28 06/15/18 18:28 06/15/18 18:28 06/15/18 18:28 06/15/18 18:28 - Diagnostic Test Radiology reviewed: Image reviewed, Reports reviewed Procedures - Immobilization Right Hand Pre-Proc Neuro Vasc Exam: Normal Immobilizer type: Keegan wrap Performed by: PCT Post-Proc Neuro Vasc Exam: Normal Alignment checked and good: Yes Discharge - Discharge Clinical Impression: Sprain of hand, right Qualifiers: Encounter type: initial encounter Qualified Code(s): S63.91XA - Sprain of unspecified part of right wrist and hand, initial encounter Condition: Stable Disposition: HOME, SELF-CARE Instructions: Keegan Wrap ([facility]), Ice & Elevation ([facility]), Sprain ([facility]) Additional Instructions: Return immediately for any new or worsening symptoms Followup with your primary care provider, call tomorrow to make a followup appointment Follow-up with orthopedics for any persistent pain or problems Referrals: [facility] [Primary Care Provider] - Follow up as needed LA NENA LÓPEZ DO [ACTIVE STAFF] - Follow up as needed
--- NOTE | 2018-06-15 20:46 | RADIOLOGY REPORT (SQ) ---
EXAM DESCRIPTION: HAND RIGHT 3 VIEWS COMPLETED DATE/TIME: 06/15/2018 8:18 pm REASON FOR STUDY: fall, r hand injury COMPARISON: None. EXAM PARAMETERS: NUMBER OF VIEWS: Three views. TECHNIQUE: AP, lateral and oblique radiographic images acquired of the right hand. LIMITATIONS: None. FINDINGS: MINERALIZATION: Normal. BONES: No acute fracture or dislocation. No worrisome bone lesions. JOINTS: No effusions. SOFT TISSUES: No soft tissue swelling. No foreign body. OTHER: No other significant finding. IMPRESSION: NEGATIVE STUDY OF THE RIGHT HAND. NO RADIOGRAPHIC EVIDENCE OF ACUTE INJURY. TECHNICAL DOCUMENTATION: JOB ID: [id number] [employer]- All Rights Reserved Reading location - IP/workstation name: [email or web address]
[2018-06-15 21:16] VITALS: BP 152/94
== END 2018-06-15 21:08 | disposition home or self-care (01) ==
LOC: ER 18:17
DX: S63.91XA Sprain of unspecified part of right wrist and hand, initial encounter (principal); W23.1XXA Caught, crushed, jammed, or pinched between stationary objects, initial encounter; I10 Essential (primary) hypertension; M54.2 Cervicalgia; M54.9 Dorsalgia, unspecified; G89.29 Other chronic pain; Z79.899 Other long term (current) drug therapy; Z87.81 Personal history of (healed) traumatic fracture
CPT/HCPCS: 99283

== ENCOUNTER 2018-07-21 12:51 | Emergency (ER) | payer OTHER ==
--- NOTE | 2018-07-21 13:15 | ER Document Report ---
ED Medical Screen (RME) - General Chief Complaint: Dizziness Stated Complaint: FALL/HEAD INJURY, NAUSEA,DIZZY Time Seen by Provider: 07/21/18 13:07 Primary Care Provider: [facility] [Primary Care Provider] - Follow up as needed Mode of Arrival: Wheelchair Information source: Patient Notes: Patient reports near syncopal episodes almost daily for the past month. Patient states that he fell yesterday hitting his head. Patient complains of persistent headache since then. Patient also reports abdominal distention and generalized abdominal pain. hx: Hypertension, PTSD, degenerative disc disease I have greeted and performed a rapid initial assessment of this patient. A comprehensive ED assessment and evaluation of the patient, analysis of test results and completion of the medical decision making process will be conducted by additional ED providers. TRAVEL OUTSIDE OF THE [place] IN LAST 30 DAYS: No - Related Data Allergies/Adverse Reactions: No Known Drug Allergies Allergy (Verified 07/21/18 12:52) bee stings Allergy (Uncoded 07/21/18 12:52) Past Medical History - Social History Frequency of alcohol use: None Drug Abuse: None - Past Medical History Cardiac Medical History: Reports: Hx Hypertension - ON MEDS Denies: Hx Atrial Fibrillation, Hx Congestive Heart Failure, Hx Heart Attack, Hx Hypercholesterolemia Pulmonary Medical History: Reports: Hx Asthma - CHILD- NO MEDS CURRENTLY Denies: Hx Bronchitis, Hx COPD, Hx Pneumonia, Hx Tuberculosis Neurological Medical History: Reports: Hx Migraine. Denies: Hx Cerebrovascular Accident, Hx Seizures Endocrine Medical History: Denies: Hx Diabetes Mellitus Type 1, Hx Diabetes Mellitus Type 2 Renal/ Medical History: Reports: Hx Kidney Stones - H/O, Hx Renal Insufficiency. Denies: Hx End Stage Renal Disease, Hx Peritoneal Dialysis Malignancy Medical History: Denies Hx Lung Cancer GI Medical History: Denies: Hx Hepatitis Musculoskeltal Medical History: Reports Hx Arthritis Psychiatric Medical History: Reports: Hx Attention Deficit Hyperactivity Disorder, Hx Post Traumatic Stress Disorder - & ANXIETY Denies: Hx Bipolar Disorder, Hx Dementia, Hx Depression, Hx Schizophrenia Traumatic Medical History: Reports: Hx Fractures - 4X L ANKLE,L TIB/FIB, R ANKLE, L ARM, 3X R ARM, R FINGER Infectious Medical History: Denies: Hx Hepatitis Past Surgical History: Reports: Hx Orthopedic Surgery - left knee X3, right knee, bilateral carpal tunnel. Denies: Hx Appendectomy, Hx Cholecystectomy, Hx Tonsillectomy - Immunizations Hx Diphtheria, Pertussis, Tetanus Vaccination: Yes History of Influenza Vaccine for 11/2016 - 04/2017 Season: No Physical Exam - Vital signs Vitals: Temp Pulse Resp BP Pulse Ox 98.3 F 96 17 149/84 H 95 07/21/18 12:56 07/21/18 12:56 07/21/18 12:56 07/21/18 12:56 07/21/18 12:56 - Abdominal Inspection: Morbidly Obese Tenderness: Tender - Generalized abdominal tenderness Course - Vital Signs Vital signs: Temp Pulse Resp BP Pulse Ox 98.3 F 96 17 149/84 H 95 07/21/18 12:56 07/21/18 12:56 07/21/18 12:56 07/21/18 12:56 07/21/18 12:56 Doctor's Discharge - Discharge [facility]errals: [facility] [[facility]] - Follow up as needed
[2018-07-21 13:30] LABS: ABSOLUTE LYMPHOCYTES (AUTO) 2.1 10^3/uL (0.5-4.7); ABSOLUTE MONOCYTES (AUTO) 0.3 10^3/uL (0.1-1.4); ABSOLUTE NEUT (AUTO) 4.1 10^3/uL (1.7-8.2); BASOPHILS % (AUTO) 0.7 % (0-2); EOSINOPHILS % (AUTO) 0.7 % (0-6); HEMATOCRIT 42.7 % (37.9-51.0); HEMOGLOBIN 14.4 g/dL (13.5-17.0); LYMPHOCYTES % (AUTO) 31.6 % (13-45); MEAN CORPUSCULAR HEMOGLOBIN 29.9 pg (27.0-33.4); MEAN CORPUSCULAR HGB CONC 33.6 g/dL (32.0-36.0); MEAN CORPUSCULAR VOLUME 89 fl (80-97); MONOCYTES % (AUTO) 4.8 % (3-13); PLATELET COUNT 262 10^3/uL (150-450); RED CELL DISTRIBUTION WIDTH 14.7 % (11.5-14.0); SEGMENTED NEUTROPHILS % (AUTO) 62.2 % (42-78); TOTAL CELLS COUNTED % (AUTO) 100 %; WHITE BLOOD COUNT 6.6 10^3/uL (4.0-10.5)
[2018-07-21 13:49] LABS: ALANINE AMINOTRANSFERASE 62 U/L (21-72); ALBUMIN 4.8 g/dL (3.5-5.0); ALKALINE PHOSPHATASE 92 U/L (38-126); ANION GAP 13 (5-19); ASPARTATE AMINO TRANSFERASE 57 U/L (17-59); BILIRUBIN,DIRECT 0.2 mg/dL (0.0-0.4); BILIRUBIN,TOTAL 1.2 mg/dL (0.2-1.3); BLOOD UREA NITROGEN 15 mg/dL (7-20); CALCIUM 9.9 mg/dL (8.4-10.2); CARBON DIOXIDE 26 mmol/L (22-30); CHLORIDE 100 mmol/L (98-107); GLUCOSE 128 mg/dL (75-110); LIPASE 43.8 U/L (23-300); POTASSIUM 4.5 mmol/L (3.6-5.0); SODIUM 138.6 mmol/L (137-145); TOTAL PROTEIN 7.9 g/dL (6.3-8.2)
--- NOTE | 2018-07-21 13:55 | RADIOLOGY REPORT (SQ) ---
EXAM DESCRIPTION: CT HEAD WITHOUT COMPLETED DATE/TIME: 07/21/2018 1:43 pm REASON FOR STUDY: fall, MUNOZ COMPARISON: 09/06/2012 TECHNIQUE: Axial images acquired through the brain without intravenous contrast. Images reviewed wi th bone, brain and subdural windows. Additional sagittal and coronal reconstructions were generated. Images stored on PACS. All CT scanners at this facility use dose modulation, iterative reconstruction, and/or weight based d osing when appropriate to reduce radiation dose to as low as reasonably achievable (ALARA). [facility]: Dose Right [facility]: CareDose [facility]: Dose Right [facility]: Teradose 4D [facility]: Movli RADIATION DOSE: CT Rad equipment meets quality standard of care and radiation dose reduction techniq ues were employed. CTDIvol: 53.2 mGy. DLP: 1097 mGy-cm. mGy. LIMITATIONS: None. FINDINGS: VENTRICLES: Normal size and contour. CEREBRUM: No masses. No hemorrhage. No midline shift. No evidence for acute infarction. Normal gra y/white matter differentiation. No areas of low density in the white matter. CEREBELLUM: No masses. No hemorrhage. No alteration of density. No evidence for acute infarction. EXTRAAXIAL SPACES: No fluid collections. No masses. ORBITS AND GLOBE: No intra- or extraconal masses. Normal contour of globe without masses. CALVARIUM: No fracture. PARANASAL SINUSES: No fluid or mucosal thickening. SOFT TISSUES: No mass or hematoma. OTHER: No other significant finding. IMPRESSION: NO ACUTE INTRACRANIAL IMAGING FINDINGS. EVIDENCE OF ACUTE STROKE: NO. COMMENT: Quality ID # [id number]: Final reports with documentation of one or more dose reduction techniques (e.g., Automated exposure control, adjustment of the mA and/or kV according to patient size, use of iterative reconstruction technique) TECHNICAL DOCUMENTATION: JOB ID: [id number] [employer]- All Rights Reserved Reading location - IP/workstation name: [email or web address]
--- NOTE | 2018-07-21 14:25 | RADIOLOGY REPORT (SQ) ---
EXAM DESCRIPTION: ACUTE ABDOMEN SERIES COMPLETED DATE/TIME: 07/21/2018 2:15 pm REASON FOR STUDY: near syncope, abd pain/distention COMPARISON: 04/21/2012. NUMBER OF VIEWS: Three views. TECHNIQUE: Frontal chest, supine abdomen and upright/decubitus abdomen radiographic images acquired. LIMITATIONS: None. FINDINGS: CHEST: Lungs clear of infiltrates. FREE AIR: None. No abnormal gas collections. BOWEL GAS PATTERN: Nonobstructive pattern. No dilated loops or air fluid levels. Unremarkable fecal burden. CALCIFICATIONS: No suspicious calcifications. HARDWARE: None in the abdomen. SOFT TISSUES: No gross mass or suggestion of organomegaly. BONES: No acute fracture. No worrisome bone lesions. OTHER: No other significant finding. IMPRESSION: NO RADIOGRAPHIC EVIDENCE FOR ACUTE ABDOMINAL DISEASE. TECHNICAL DOCUMENTATION: JOB ID: [id number] [employer]- All Rights Reserved Reading location - IP/workstation name: [email or web address]
[2018-07-21] MEDS ORDERED: ONDANSETRON HCL INJ/PF 4 MG/2 ML SDV IV ONE (15:30)
--- NOTE | 2018-07-21 15:53 | ER Document Report ---
ED General - General Chief Complaint: Dizziness Stated Complaint: FALL/HEAD INJURY, NAUSEA,DIZZY Time Seen by Provider: 07/21/18 13:07 [facility] Care [facility]: [facility] [[facility]] - Follow up as needed Mode of Arrival: Wheelchair Information source: Patient, [facility] Records Notes: 43-year-old male with traumatic brain injury, chronic migraines, peripheral ne uropathy, chronic back pain, PTSD, insomnia presents with concern for frequent falls which have been ongoing for several weeks. Patient reports that he is fallen 3 times in the last 5 days. Today he states he hit his head. Denies loss of consciousness, preceding chest pain, shortness of breath, dizziness. States that he does get muffled hearing and tunnel vision when it occurs. Patient has been seen by his [facility], pain management physician and pump installation and servicer for this. Patient reports that he recently discontinued hydrocodone, Percocet and Butrans that he was receiving from pain management and took for the last 2 years. Patient complaining of vague abdominal discomfort, chronic nausea, constipation for which she takes 1 sons and Phenergan for. Patient has no acute problems at this time. TRAVEL OUTSIDE OF THE [place] IN LAST 30 DAYS: No - HPI Onset: Other Onset/Duration: Gradual, Persistent Quality of pain: Achy Severity: Mild Pain Level: 2 Associated symptoms: Nausea. denies: Chest pain, Productive cough, Diarrhea, Fever, Headache, Shortness of breath, Weakness Exacerbated by: Denies Relieved by: Denies Similar symptoms previously: Yes Recently seen / treated by doctor: Yes - Related Data Allergies/Adverse Reactions: No Known Drug Allergies Allergy (Verified 07/21/18 12:52) bee stings Allergy (Uncoded 07/21/18 12:52) Past Medical History - General Information source: Patient - Social History Smoking Status: Never Smoker Frequency of alcohol use: None Drug Abuse: None Lives with: Family Family History: CAD, Other - Kidney stones Patient has suicidal ideation: No Patient has homicidal ideation: No - Past Medical History Cardiac Medical History: Reports: Hx Hypertension - ON MEDS Denies: Hx Atrial Fibrillation, Hx Congestive Heart Failure, Hx Heart Attack, Hx Hypercholesterolemia Pulmonary Medical History: Reports: Hx Asthma - CHILD- NO MEDS CURRENTLY Denies: Hx Bronchitis, Hx COPD, Hx Pneumonia, Hx Tuberculosis Neurological Medical History: Reports: Hx Migraine. Denies: Hx Cerebrovascular Accident, Hx Seizures Endocrine Medical History: Denies: Hx Diabetes Mellitus Type 1, Hx Diabetes Mellitus Type 2 Renal/ Medical History: Reports: Hx Kidney Stones - H/O, Hx Renal Insufficiency. Denies: Hx End Stage Renal Disease, Hx Peritoneal Dialysis Malignancy Medical History: Denies Hx Lung Cancer GI Medical History: Denies: Hx Hepatitis Musculoskeletal Medical History: Reports Hx Arthritis Psychiatric Medical History: Reports: Hx Attention Deficit Hyperactivity Disorder, Hx Post Traumatic Stress Disorder - & ANXIETY Denies: Hx Bipolar Disorder, Hx Dementia, Hx Depression, Hx Schizophrenia Traumatic Medical History: Reports: Hx Fractures - 4X L ANKLE,L TIB/FIB, R ANKLE, L ARM, 3X R ARM, R FINGER Infectious Medical History: Denies: Hx Hepatitis Past Surgical History: Reports: Hx Orthopedic Surgery - left knee X3, right knee, bilateral carpal tunnel. Denies: Hx Appendectomy, Hx Cholecystectomy, Hx Tonsillectomy - Immunizations Hx Diphtheria, Pertussis, Tetanus Vaccination: Yes Review of Systems - Review of Systems Constitutional: Weight gain EENT: denies: Blurred vision, Difficulty swallowing Cardiovascular: denies: Chest pain, Palpitations, Dizziness, Lightheaded Respiratory: denies: Cough, Short of breath Gastrointestinal: Abdominal pain, Nausea, Constipation Genitourinary: denies: Dysuria Musculoskeletal: Back pain - Chronic, Muscle stiffness Skin: denies: Rash Hematologic/Lymphatic: No symptoms reported Neurological/Psychological: Other - Near syncope -: Yes All other systems reviewed and negative Physical Exam - Vital signs Vitals: Temp Pulse Resp BP Pulse Ox 98.3 F 96 17 149/84 H 95 07/21/18 12:56 07/21/18 12:56 07/21/18 12:56 07/21/18 12:56 07/21/18 12:56 - Notes Notes: PHYSICAL EXAMINATION: GENERAL: Well-appearing, well-nourished and in no acute distress. HEAD: Atraumatic, normocephalic. EYES: Pupils equal round and reactive to light, extraocular movements intact, sclera anicteric, conjunctiva are normal. ENT: Nares patent, oropharynx clear without exudates. Moist mucous membranes. NECK: Normal range of motion, supple without lymphadenopathy LUNGS: Breath sounds clear to auscultation bilaterally and equal. No wheezes rales or rhonchi. HEART: Regular rate and rhythm without murmurs ABDOMEN: Soft, nontender, nondistended abdomen. No guarding, no rebound. No masses appreciated. Musculoskeletal: Normal range of motion, no pitting or edema. No cyanosis. NEUROLOGICAL: Cranial nerves grossly intact. Normal speech, normal gait. Normal sensory, motor exams PSYCH: Normal mood, normal affect. SKIN: Warm, Dry, normal turgor, no rashes or lesions noted. Course - Re-evaluation Re-evalutation: 07/21/18 15:53 Laboratory 07/21/18 07/21/18 07/21/18 13:20 13:20 13:20 WBC 6.6 RBC 4.80 Hgb 14.4 Hct 42.7 MCV 89 MCH 29.9 MCHC 33.6 RDW 14.7 H Plt Count 262 Seg Neutrophils % 62.2 Lymphocytes % 31.6 Monocytes % 4.8 Eosinophils % 0.7 Basophils % 0.7 Absolute Neutrophils 4.1 Absolute Lymphocytes 2.1 Absolute Monocytes 0.3 Absolute Eosinophils 0.0 Absolute Basophils 0.0 Sodium 138.6 Potassium 4.5 Chloride 100 Carbon Dioxide 26 Anion Gap 13 BUN 15 Creatinine 1.22 Est GFR ( Amer) > 60 Est GFR (Non-Af Amer) > 60 Glucose 128 H Calcium 9.9 Magnesium 2.2 Total Bilirubin 1.2 Direct Bilirubin 0.2 Neonat Total Bilirubin Not Reportable Neonat Direct Bilirubin Not Reportable Neonat Indirect Bili Not Reportable AST 57 ALT 62 Alkaline Phosphatase 92 Troponin I < 0.012 Total Protein 7.9 Albumin 4.8 Lipase 43.8 Acute Abdomen Series 07/21/18 13:13 IMPRESSION: NO RADIOGRAPHIC EVIDENCE FOR ACUTE ABDOMINAL DISEASE. Head CT 07/21/18 13:13 IMPRESSION: NO ACUTE INTRACRANIAL IMAGING FINDINGS. EVIDENCE OF ACUTE STROKE: NO. Temp Pulse Resp BP Pulse Ox 98.3 F 96 17 149/84 H 95 07/21/18 12:56 07/21/18 12:56 07/21/18 12:56 07/21/18 12:56 07/21/18 12:56 - Vital Signs Vital signs: Temp Pulse Resp BP Pulse Ox 99.4 F 80 16 147/89 H 100 07/21/18 16:35 07/21/18 16:35 07/21/18 16:35 07/21/18 16:35 07/21/18 16:35 - Laboratory Result Diagrams: 07/21/18 13:20 07/21/18 13:20 Laboratory results interpreted by me: 07/21/18 07/21/18 07/21/18 13:20 13:20 16:05 RDW 14.7 H Glucose 128 H Urine Urobilinogen 4.0 H - Diagnostic Test Radiology reviewed: Image reviewed, Reports reviewed - EKG Interpretation by Me EKG shows normal: Sinus rhythm Rate: Normal Rhythm: NSR When compared to previous EKG there are: No significant change Discharge - Discharge Clinical Impression: Near syncope, Nausea, Chronic abdominal pain Fall Qualifiers: Encounter type: initial encounter Qualified Code(s): W19.XXXA - Unspecified fall, initial encounter Condition: Good Disposition: HOME, SELF-CARE Instructions: Nausea or Vomiting, Nonspecific ([facility]), Near Syncopal Episode ([facility]) Additional Instructions: You have been seen in the Emergency Department (ED) today following a fall. Your workup today did not reveal any injuries that require you to stay in the ho spital. You can expect, though, to be stiff and sore for the next several days. You can take Tylenol 1000 mg every 6 hours as needed for pain. You can apply a hot pack or electric heating pad to the sore areas. You can also use topical "Aspercreme with lidocaine" to sore areas as needed. Please follow up with your primary care doctor as soon as possible regarding today's ED visit and your recent fall. Call your doctor or return to the ED if you develop a sudden or severe headache, confusion, slurred speech, facial droop, weakness or numbness in any arm or leg, extreme fatigue, vomiting more than two times, severe abdominal pain, or other symptoms that concern you. Follow up with your [id number] hours for further care or return to the ED IMMEDIATELY if symptoms worsen or you have any concerns. If you cannot afford to follow up with your primary care physician a list of low cost clinics have been provided at the end of your discharge papers as well. Most prescribed medications have multiple side effects. The safest thing to do is when filling your prescription speak to your pharmacist regarding possible interactions with your normal home medications and over the counter medications such as Ibuprofen, Tylenol, Benadryl. If you experience any symptoms that cause you discomfort or concern you should discontinue the medication immediately and return to the emergency room or call your primary care physician. Prescriptions: Ondansetron [Zofran Odt 4 mg Tablet] 1 - 2 tab PO Q4H PRN #15 tab.rapdis PRN Reason: For Nausea/Vomiting [facility]errals: [facility] [[facility] Care [facility]] - Follow up as needed
[2018-07-21 16:23] LABS: APPEARANCE,URINE CLEAR; BILIRUBIN,URINE NEGATIVE (NEGATIVE); COLOR,URINE YELLOW; GLUCOSE, URINE NEGATIVE (NEGATIVE); KETONES,URINE NEGATIVE (NEGATIVE); LEUKOCYTE ESTERASE,URINE NEGATIVE (NEGATIVE); NITRITE,URINE NEGATIVE (NEGATIVE); PROTEIN,URINE NEGATIVE (NEGATIVE); URINE SPECIFIC GRAVITY 1.024
[2018-07-21] MEDS ORDERED: ONDANSETRON 4 MG TAB.RAPDIS ONE (16:26)
[2018-07-21] MEDS ORDERED: ONDANSETRON HCL 8 MG TABLET PO ONE (16:28)
[2018-07-21 16:37] LABS: URINE AMPHETAMINES SCREEN NEGATIVE; URINE BARBITURATES SCREEN NEGATIVE; URINE BENZODIAZEPINES SCREEN NEGATIVE; URINE COCAINE SCREEN NEGATIVE; URINE MARIJUANA (THC) SCREEN NEGATIVE; URINE METHADONE SCREEN NEGATIVE; URINE PHENCYCLIDINE SCREEN NEGATIVE
[2018-07-21 16:38] VITALS: BP 147/89
--- NOTE | 2018-07-21 18:24 | EKG REPORT ---
SEVERITY:- BORDERLINE ECG - SINUS RHYTHM BORDERLINE T ABNORMALITIES, INFERIOR LEADS : Confirmed by: Mina Valdez MD 21-Jul-2018 18:23:48
== END 2018-07-21 16:39 | disposition home or self-care (01) ==
LOC: ER 12:51
DX: Z04.3 Encounter for examination and observation following other accident (principal); R55 Syncope and collapse; R11.0 Nausea; R29.6 Repeated falls; K59.00 Constipation, unspecified; R10.9 Unspecified abdominal pain; M54.9 Dorsalgia, unspecified; G89.29 Other chronic pain; I10 Essential (primary) hypertension; Z79.899 Other long term (current) drug therapy; Z87.820 Personal history of traumatic brain injury; Z91.030 Bee allergy status; Z87.442 Personal history of urinary calculi
CPT/HCPCS: 93005; 99284; 36415; 83690; 83735; 85025; 80053; 81001; 84484; 80307; 74022; 70450; 93010; S0119

== ENCOUNTER → 2018-12-02 | Outpatient (CLI) | payer OTHER ==
--- NOTE | 2018-12-02 10:07 | RADIOLOGY REPORT (SQ) ---
EXAM DESCRIPTION: CHEST SINGLE VIEW COMPLETED DATE/TIME: 12/02/2018 9:57 am REASON FOR STUDY: MORBID (SEVERE) OBESITY DUE TO EXCESS CALORIES COMPARISON: 05/13/2018 EXAM PARAMETERS: NUMBER OF VIEWS: One view. TECHNIQUE: Single frontal radiographic view of the chest acquired. RADIATION DOSE: NA LIMITATIONS: None. FINDINGS: LUNGS AND PLEURA: No opacities, masses or pneumothorax. No pleural effusion. MEDIASTINUM AND HILAR STRUCTURES: No masses. Contour normal. HEART AND VASCULAR STRUCTURES: Heart normal in size. Normal vasculature. BONES: No acute findings. HARDWARE: None in the chest. OTHER: No other significant finding. IMPRESSION: 1. NO ACUTE RADIOGRAPHIC FINDING IN THE CHEST. TECHNICAL DOCUMENTATION: JOB ID: [id number] [employer]- All Rights Reserved Reading location - IP/workstation name: [email or web address]
[2018-12-02 10:17] LABS: ABSOLUTE EOSINOPHILS # (AUTO) 0.1 10^3/uL (0.0-0.6); ABSOLUTE LYMPHOCYTES (AUTO) 2.1 10^3/uL (0.5-4.7); ABSOLUTE MONOCYTES (AUTO) 0.5 10^3/uL (0.1-1.4); ABSOLUTE NEUT (AUTO) 3.1 10^3/uL (1.7-8.2); BASOPHILS % (AUTO) 0.7 % (0-2); HEMATOCRIT 41.9 % (37.9-51.0); HEMOGLOBIN 13.9 g/dL (13.5-17.0); LYMPHOCYTES % (AUTO) 36.7 % (13-45); MEAN CORPUSCULAR HEMOGLOBIN 29.4 pg (27.0-33.4); MEAN CORPUSCULAR HGB CONC 33.2 g/dL (32.0-36.0); MEAN CORPUSCULAR VOLUME 89 fl (80-97); MONOCYTES % (AUTO) 7.8 % (3-13); PLATELET COUNT 232 10^3/uL (150-450); RED BLOOD COUNT 4.73 10^6/uL (4.35-5.55); SEGMENTED NEUTROPHILS % (AUTO) 52.8 % (42-78); TOTAL CELLS COUNTED % (AUTO) 100 %; WHITE BLOOD COUNT 5.8 10^3/uL (4.0-10.5)
[2018-12-02 10:44] LABS: ALBUMIN 4.5 g/dL (3.5-5.0); ALKALINE PHOSPHATASE 104 U/L (38-126); ANION GAP 10 (5-19); ASPARTATE AMINO TRANSFERASE 59 U/L (17-59); BILIRUBIN,DIRECT 0.2 mg/dL (0.0-0.4); BILIRUBIN,TOTAL 1.1 mg/dL (0.2-1.3); BLOOD UREA NITROGEN 19 mg/dL (7-20); CALCIUM 9.8 mg/dL (8.4-10.2); CARBON DIOXIDE 28 mmol/L (22-30); CHLORIDE 99 mmol/L (98-107); GLUCOSE 112 mg/dL (75-110); POTASSIUM 4.8 mmol/L (3.6-5.0); TOTAL PROTEIN 7.9 g/dL (6.3-8.2)
--- NOTE | 2018-12-03 07:20 | EKG REPORT ---
SEVERITY:- ABNORMAL ECG - SINUS TACHYCARDIA LEFT ATRIAL ABNORMALITY BORDERLINE T ABNORMALITIES, INFERIOR LEADS : Confirmed by: Shirley Sam 03-Dec-2018 07:19:37
== END ==
LOC: OD 09:29
PROVIDERS: ATTEND Surgery
DX: E66.01 Morbid (severe) obesity due to excess calories (principal)
CPT/HCPCS: 36415; 71045; 80053; 84443; 85025; 93005; 93010

== ENCOUNTER 2018-12-12 16:23 | Emergency (ER) | payer OTHER ==
[2018-12-12] MEDS ORDERED: IPRATROPIUM/ALBUTEROL 0.5-2.5 MG/3 ML AMPUL NEB ONE (16:35)
[2018-12-12] MEDS ORDERED: NORMAL SALINE 1000 ML 1,000 ML IV ONE ×2 (16:36→18:07)
--- NOTE | 2018-12-12 16:37 | ER Document Report ---
ED Medical Screen (RME) - General Chief Complaint: Flank Pain Stated Complaint: FLANK PAIN Time Seen by Provider: 12/12/18 16:33 Primary Care Provider: LYNSEY MULTANI [Primary Care Provider] - Follow up as needed Notes: Patient presents complaining of cough for the past month. Patient reports left lateral side pain. No shortness of breath no fever, no chest pain. hx: hypertension, TBI, PTSD I have greeted and performed a rapid initial assessment of this patient. A comprehensive ED assessment and evaluation of the patient, analysis of test results and completion of the medical decision making process will be conducted by additional ED providers. TRAVEL OUTSIDE OF THE [place] IN LAST 30 DAYS: No - Related Data Allergies/Adverse Reactions: No Known Drug Allergies Allergy (Verified 07/21/18 12:52) bee stings Allergy (Uncoded 07/21/18 12:52) Home Medications: lisinopril Past Medical History - Social History Chew tobacco use (# tins/day): No Frequency of alcohol use: None Drug Abuse: None - Past Medical History Cardiac Medical History: Reports: Hx Hypertension - ON MEDS Denies: Hx Atrial Fibrillation, Hx Congestive Heart Failure, Hx Heart Attack, Hx Hypercholesterolemia Pulmonary Medical History: Reports: Hx Asthma - CHILD- NO MEDS CURRENTLY Denies: Hx Bronchitis, Hx COPD, Hx Pneumonia, Hx Tuberculosis Neurological Medical History: Reports: Hx Migraine. Denies: Hx Cerebrovascular Accident, Hx Seizures, Hx Parkinson's Disease Endocrine Medical History: Denies: Hx Diabetes Mellitus Type 1, Hx Diabetes Mellitus Type 2 Renal/ Medical History: Reports: Hx Kidney Stones - H/O, Hx Renal Insufficiency. Denies: Hx End Stage Renal Disease, Hx Peritoneal Dialysis Malignancy Medical History: Denies Hx Lung Cancer GI Medical History: Denies: Hx Hepatitis Musculoskeltal Medical History: Reports Hx Arthritis Psychiatric Medical History: Reports: Hx Attention Deficit Hyperactivity Disorder, Hx Post Traumatic Stress Disorder - & ANXIETY Denies: Hx Bipolar Disorder, Hx Dementia, Hx Depression, Hx Schizophrenia Traumatic Medical History: Reports: Hx Fractures - 4X L ANKLE,L TIB/FIB, R ANKLE, L ARM, 3X R ARM, R FINGER Infectious Medical History: Denies: Hx Hepatitis Past Surgical History: Reports: Hx Orthopedic Surgery - left knee X3, right knee, bilateral carpal tunnel. Denies: Hx Appendectomy, Hx Cholecystectomy, Hx Tonsillectomy - Immunizations Hx Diphtheria, Pertussis, Tetanus Vaccination: Yes Physical Exam - Vital signs Vitals: Temp Pulse Resp BP Pulse Ox 98.3 F 120 H 20 157/95 H 96 12/12/18 16:26 12/12/18 16:26 12/12/18 16:26 12/12/18 16:26 12/12/18 16:26 - Respiratory Respiratory status: No respiratory distress Breath sounds: Nonproductive cough - Cardiovascular Rhythm: Tachycardia Heart sounds: S1 appreciated, S2 appreciated Course - Vital Signs Vital signs: Temp Pulse Resp BP Pulse Ox 98.3 F 120 H 20 157/95 H 96 12/12/18 16:26 12/12/18 16:26 12/12/18 16:26 12/12/18 16:26 12/12/18 16:26 Doctor's Discharge - Discharge Referrals: LYNSEY MULTANI [Primary Care Provider] - Follow up as needed
[2018-12-12] MEDS ORDERED: KETOROLAC TROMETHAMINE INJ/PF 30 MG/1 ML SDV IV ONE (17:07)
--- NOTE | 2018-12-12 17:13 | ER Document Report ---
ED General - General Chief Complaint: Flank Pain Stated Complaint: FLANK PAIN Time Seen by Provider: 12/12/18 16:33 Primary Care Provider: LYNSEY MULTANI [ACTIVE STAFF] - Follow up as needed TRAVEL OUTSIDE OF THE [place] IN LAST 30 DAYS: No - HPI Notes: Patient is a 43-year-old male with a history of hypertension, obesity, traumatic brain injury, chronic migraines, peripheral neuropathy, chronic back pain, PTSD, insomnia who presents complaining of left pleuritic pain with cough and deep breathing x2 days with a dry cough x1mo. Patient states that the cough is more from irritation in the back of his throat, but it is not a sore throat. Pt states that he has to hold his left side when he coughs. No injury. He is otherwise able to eat and drink without difficulty. He is urinating normally and having normal bowel movements. Denies any prolonged immobilization, distanc e travel, recent surgery/trauma, personal cancer history, hormone use, smoking, or previous DVT/PE. Denies any headache, fever, neck pain, URI, sore throat, palpitations, syncope, wheeze, SOB, dyspnea, abdominal pain, nausea/vomiting/diarrhea, urinary retention, dysuria, hematuria, back pain, or rash. - Related Data Allergies/Adverse Reactions: No Known Drug Allergies Allergy (Verified 07/21/18 12:52) bee stings Allergy (Uncoded 07/21/18 12:52) Home Medications: lisinopril Past Medical History - Social History Smoking Status: Never Smoker Chew tobacco use (# tins/day): No Frequency of alcohol use: None Drug Abuse: None Family History: CAD, Other - Kidney stones Patient has suicidal ideation: No Patient has homicidal ideation: No - Past Medical History Cardiac Medical History: Reports: Hx Hypertension - ON MEDS Denies: Hx Atrial Fibrillation, Hx Congestive Heart Failure, Hx Heart Attack, Hx Hypercholesterolemia Pulmonary Medical History: Reports: Hx Asthma - CHILD- NO MEDS CURRENTLY Denies: Hx Bronchitis, Hx COPD, Hx Pneumonia, Hx Tuberculosis Neurological Medical History: Reports: Hx Migraine. Denies: Hx Cerebrovascular Accident, Hx Seizures, Hx Parkinson's Disease Endocrine Medical History: Denies: Hx Diabetes Mellitus Type 1, Hx Diabetes Mellitus Type 2 Renal/ Medical History: Reports: Hx Kidney Stones - H/O, Hx Renal Insufficiency. Denies: Hx End Stage Renal Disease, Hx Peritoneal Dialysis Malignancy Medical History: Denies Hx Lung Cancer GI Medical History: Denies: Hx Hepatitis Musculoskeletal Medical History: Reports Hx Arthritis Psychiatric Medical History: Reports: Hx Attention Deficit Hyperactivity Disorder, Hx Post Traumatic Stress Disorder - & ANXIETY Denies: Hx Bipolar Disorder, Hx Dementia, Hx Depression, Hx Schizophrenia Traumatic Medical History: Reports: Hx Fractures - 4X L ANKLE,L TIB/FIB, R ANKLE, L ARM, 3X R ARM, R FINGER Infectious Medical History: Denies: Hx Hepatitis Past Surgical History: Reports: Hx Orthopedic Surgery - left knee X3, right knee, bilateral carpal tunnel. Denies: Hx Appendectomy, Hx Cholecystectomy, Hx Tonsillectomy - Immunizations Hx Diphtheria, Pertussis, Tetanus Vaccination: Yes Review of Systems - Review of Systems -: Yes All other systems reviewed and negative Physical Exam - Vital signs Vitals: Temp Pulse Resp BP Pulse Ox 98.3 F 120 H 20 157/95 H 96 12/12/18 16:26 12/12/18 16:26 12/12/18 16:26 12/12/18 16:26 12/12/18 16:26 - Notes Notes: PHYSICAL EXAMINATION: GENERAL: Well-appearing, well-nourished and in no acute resp distress. HEAD: Atraumatic, normocephalic. EYES: Pupils equal round and reactive to light, extraocular movements intact, sclera anicteric, conjunctiva are normal. ENT: Nares patent and without discharge. oropharynx clear without exudates. No tonsilar hypertrophy or erythema. Moist mucous membranes. NECK: Normal range of motion, supple without lymphadenopathy Chest: + reproducible tenderness to palpation of the Lt lateral lower rib area. LUNGS: Breath sounds clear to auscultation bilaterally and equal. No wheezes rales or rhonchi. HEART: Tachycardic; Regular rate and rhythm without murmurs, rubs, gallops. ABDOMEN: Soft, nontender, nondistended abdomen. No guarding, no rebound. Normal bowel sounds present. No CVA tenderness bilaterally. Musculoskeletal: FROM to passive/active. Strength 5+/5. Boris neg. No asymmetry to LE's. Extremities: No cyanosis, clubbing, or edema b/l. Peripheral pulses 2+. Capil elizabeth refill less than 3 seconds. NEUROLOGICAL: Normal speech, normal gait. PSYCH: Normal mood, normal affect. SKIN: Warm, Dry, normal turgor, no rashes or lesions noted. Course - Re-evaluation Re-evalutation: 12/12/18 18:54 Patient is an afebrile, well-hydrated 43-year-old male who presents to the ED with left lateral lower rib pain, suspect inflammatory, and dry cough suspect more irritation from the throat based on H&P. Vitals are acceptable without any significant tachycardia, tachypnea, or hypoxia. HR during my last eval was 96. PE is otherwise unremarkable aside from the reproducible lateral lower rib tenderness. Patient is nontoxic-appearing and is tolerating p.o. without any difficulties. CBC, CMP, EKG/cardiac enzyme, CTA chest are all unremarkable for any acute pathology. Patient has a heart score of <=3, and does not have any chest pain, dyspnea, or shortness of breath. Patient's presentation and sym ptomatology creates low suspicion for ACS, PE, pneumothorax, pericarditis, dissection, respiratory compromise, severe dehydration, sepsis, meningitis, fracture, or other systemic emergent condition at this time. Patient is aware that his condition can change from initial presentation and he needs to monitor symptoms closely and seek medical attention for any acute changes. Pt is feeling better and would like to go home. Recommend conservative measures for symptoms. Recheck with your PCM in 2-3 days. Consider consult with Cardiology. Return to the ED with any worsening/concerning symptoms otherwise as reviewed in discharge. Patient is in agreement. - Vital Signs Vital signs: Temp Pulse Resp BP Pulse Ox 98.4 F 105 H 16 156/92 H 95 12/12/18 18:59 12/12/18 18:59 12/12/18 18:59 12/12/18 18:59 12/12/18 18:59 - Laboratory Result Diagrams: 12/12/18 17:25 12/12/18 17:25 Laboratory results interpreted by me: 12/12/18 12/12/18 17:25 17:25 Hgb 13.2 L RDW 15.1 H Creatinine 1.30 H Discharge - Discharge Clinical Impression: Rib pain on left side Condition: Stable Disposition: HOME, SELF-CARE Additional Instructions: Rest, Ice Tylenol/ibuprofen as needed Light stretches daily Moist heat and massage may help F/u with your PCP in 2-3 days for a recheck Consider consult(s) with Orthopedics/physical therapy for ongoing/worsening symptoms Return to the ED with any worsening symptoms and/or development of fever, headache, chest pain, palpitations, syncope, shortness of breath, trouble b reathing, abdominal pain, n/v/d, muscle weakness/paralysis, numbness/tingling, swelling, redness, or other worsening symptoms that are concerning to you. Prescriptions: Benzonatate [Tessalon Perle 100 mg Capsule] 100 mg PO Q8HP PRN #15 cap PRN Reason: Ibuprofen [Motrin 800 mg Tablet] 800 mg PO Q8H PRN #15 tab PRN Reason: Forms: Elevated Blood Pressure Referrals: LYNSEY MULTANI [ACTIVE STAFF] - 12/14/18
[2018-12-12 17:46] LABS: ABSOLUTE BASOPHILS # (AUTO) 0.1 10^3/uL (0.0-0.2); ABSOLUTE EOSINOPHILS # (AUTO) 0.2 10^3/uL (0.0-0.6); ABSOLUTE LYMPHOCYTES (AUTO) 2.1 10^3/uL (0.5-4.7); ABSOLUTE MONOCYTES (AUTO) 0.5 10^3/uL (0.1-1.4); ABSOLUTE NEUT (AUTO) 4.9 10^3/uL (1.7-8.2); BASOPHILS % (AUTO) 0.9 % (0-2); EOSINOPHILS % (AUTO) 2.2 % (0-6); HEMATOCRIT 38.7 % (37.9-51.0); HEMOGLOBIN 13.2 g/dL (13.5-17.0); LYMPHOCYTES % (AUTO) 27.2 % (13-45); MEAN CORPUSCULAR HEMOGLOBIN 29.9 pg (27.0-33.4); MEAN CORPUSCULAR VOLUME 88 fl (80-97); MONOCYTES % (AUTO) 6.3 % (3-13); PLATELET COUNT 223 10^3/uL (150-450); RED CELL DISTRIBUTION WIDTH 15.1 % (11.5-14.0); SEGMENTED NEUTROPHILS % (AUTO) 63.4 % (42-78); TOTAL CELLS COUNTED % (AUTO) 100 %; WHITE BLOOD COUNT 7.7 10^3/uL (4.0-10.5)
[2018-12-12 18:01] LABS: ANION GAP 12 (5-19); BLOOD UREA NITROGEN 16 mg/dL (7-20); CALCIUM 9.6 mg/dL (8.4-10.2); CARBON DIOXIDE 25 mmol/L (22-30); CHLORIDE 101 mmol/L (98-107); GLUCOSE 100 mg/dL (75-110); POTASSIUM 4.1 mmol/L (3.6-5.0)
--- NOTE | 2018-12-12 18:51 | RADIOLOGY REPORT (SQ) ---
EXAM DESCRIPTION: CTA CHEST COMPLETED DATE/TIME: 12/12/2018 6:41 pm REASON FOR STUDY: Left lateral chest pain, cough, tachycardia COMPARISON: 12/24/2016 TECHNIQUE: CT scan of the chest performed using helical scanning technique with dynamic intravenous contrast injection. Images reviewed with lung, soft tissue and bone windows. Reconstructed coronal and sagittal MPR images reviewed. Additional 3 dimensional post-processing performed to develop Maximal Intensity Projection images (SD P). All images stored on PACS. All CT scanners at this facility use dose modulation, iterative reconstruction, and/or weight based d osing when appropriate to reduce radiation dose to as low as reasonably achievable (ALARA). [facility]: Dose Right [facility]: CareDose [facility]: Dose Right [facility]: Teradose 4D [facility]: everbill CONTRAST TYPE AND DOSE: 85 mL Omnipaque 350 iodinated contrast IV Contrast bolus optimized for the pulmonary arteries. Not diagnostic for the aorta. RENAL FUNCTION: None required. The patient is less than 50 years old. RADIATION DOSE: 1351 mGy cm LIMITATIONS: None. FINDINGS: LUNGS AND PLEURA: No masses, infiltrates, or pneumothorax. No pleural effusions or pleura l calcifications. AORTA AND GREAT VESSELS: No aneurysm. Contrast bolus not optimized for the aorta. HEART: No pericardial effusion. No significant coronary artery calcifications. PULMONARY ARTERIES: No emboli visualized in the main pulmonary arteries or the segmental branches. HILAR AND MEDIASTINAL STRUCTURES: No identified masses or abnormal nodes. HARDWARE: None in the chest. UPPER ABDOMEN: Hepatomegaly and hepatic steatosis. THYROID AND OTHER SOFT TISSUES: No masses. No adenopathy. BONES: No acute or significant finding. 3D MIPS: Confirm above findings. OTHER: No other significant finding. IMPRESSION: 1. Negative examination for pulmonary embolism. 2. Hepatomegaly and hepatic steatosis. COMMENT: Quality ID # [id number]: Final reports with documentation of one or more dose reduction techniques (e.g., Automated exposure control, adjustment of the mA and/or kV according to patient size, use of iterative reconstruction technique) TECHNICAL DOCUMENTATION: JOB ID: [id number] [email or web address]- All Rights Reserved Reading location - IP/workstation name: [email or web address]
[2018-12-12] MEDS ORDERED: DEXAMETHASONE SOD PHOS INJ 10 MG/1 ML VIAL IV ONE (18:54)
[2018-12-12 19:00] VITALS: BP 156/92
[2018-12-12] MEDS ORDERED: HYDROCODONE/ACETAMINOPHEN 5-325 MG TABLET PO ONE (19:05)
--- NOTE | 2018-12-12 22:55 | EKG REPORT ---
SEVERITY:- BORDERLINE ECG - SINUS TACHYCARDIA PROBABLE LEFT ATRIAL ABNORMALITY : Confirmed by: Elayne Plunkett MD 12-Dec-2018 22:53:58
== END 2018-12-12 19:21 | disposition home or self-care (01) ==
LOC: ER 16:23
DX: R07.81 Pleurodynia (principal); R05 Cough; R10.9 Unspecified abdominal pain; I10 Essential (primary) hypertension; E66.9 Obesity, unspecified; Z87.820 Personal history of traumatic brain injury; G89.29 Other chronic pain; M54.9 Dorsalgia, unspecified; Z87.442 Personal history of urinary calculi
CPT/HCPCS: 93005; 94640; 99284; 96361; 96374; 96375; 36415; 85025; 80048; 84484; 71275; 93010; J1885; J7030; J1100; J7620

== ENCOUNTER 2019-03-07 03:59 | Observation (INO) | payer OTHER ==
[2019-03-07] MEDS ORDERED: NORMAL SALINE 1000 ML 1,000 ML IV ONE (05:09)
--- NOTE | 2019-03-07 05:12 | ER Document Report ---
ED Medical Screen (RME) - General Chief Complaint: Passed Out Prior to Arrival Stated Complaint: FALL/HEAD INJURY Time Seen by Provider: 03/07/19 05:03 Primary Care Provider: CHRISTIAN,NICOLE [Primary Care Provider] - Follow up as needed Notes: 43-year-old male with chief complaint of syncopal episodes. states that he got up to go to the bathroom, passed out and slumped against the wall, she got him up, he went to the bathroom, on his way back he fell forward, struck his head facedown, and passed out again. Patient states he has a history of gastric bypass, however he has not vomited in 2 days. He has difficulty eating at times reportedly. He denies history of syncopal episodes. He denies chest pain, fever. He reports mainly pain in his neck and over his forehead. Denies alcohol or blood thinner use. TRAVEL OUTSIDE OF THE [place] IN LAST 30 DAYS: No - Related Data Allergies/Adverse Reactions: No Known Drug Allergies Allergy (Verified 07/21/18 12:52) bee stings Allergy (Uncoded 07/21/18 12:52) Home Medications: lisinoproil, omeprazole, sleeping med Past Medical History - Past Medical History Cardiac Medical History: Reports: Hx Hypertension - ON MEDS Denies: Hx Atrial Fibrillation, Hx Congestive Heart Failure, Hx Heart Attack, Hx Hypercholesterolemia Pulmonary Medical History: Reports: Hx Asthma - CHILD- NO MEDS CURRENTLY Denies: Hx Bronchitis, Hx COPD, Hx Pneumonia, Hx Tuberculosis Neurological Medical History: Reports: Hx Migraine. Denies: Hx Cerebrovascular Accident, Hx Seizures, Hx Parkinson's Disease Endocrine Medical History: Denies: Hx Diabetes Mellitus Type 1, Hx Diabetes Mellitus Type 2 Renal/ Medical History: Reports: Hx Kidney Stones - H/O, Hx Renal Insufficiency. Denies: Hx End Stage Renal Disease, Hx Peritoneal Dialysis Malignancy Medical History: Denies Hx Lung Cancer GI Medical History: Denies: Hx Hepatitis Musculoskeltal Medical History: Reports Hx Arthritis Psychiatric Medical History: Reports: Hx Attention Deficit Hyperactivity Disorder, Hx Post Traumatic Stress Disorder - & ANXIETY Denies: Hx Bipolar Disorder, Hx Dementia, Hx Depression, Hx Schizophrenia Traumatic Medical History: Reports: Hx Fractures - 4X L ANKLE,L TIB/FIB, R ANKLE, L ARM, 3X R ARM, R FINGER Infectious Medical History: Denies: Hx Hepatitis Past Surgical History: Reports: Hx Orthopedic Surgery - left knee X3, right knee, bilateral carpal tunnel. Denies: Hx Appendectomy, Hx Cholecystectomy, Hx Tonsillectomy - Immunizations Hx Diphtheria, Pertussis, Tetanus Vaccination: Yes Physical Exam - Vital signs Vitals: Temp Pulse Resp BP Pulse Ox 98.1 F 60 16 142/73 H 100 03/07/19 04:11 03/07/19 04:11 03/07/19 04:03/07/19 04:03/07/19 04:11 - General General appearance: Other - Patient awake, responds slightly sluggishly but is still interactive and appropriate - HEENT Head: No: Atraumatic - Abrasion of the right forehead, otherwise unremarkable Course - Re-evaluation Re-evalutation: I have greeted and performed a rapid initial assessment of this patient. A comprehensive ED assessment and evaluation of the patient, analysis of test results and completion of the medical decision making process will be conducted by additional ED providers. - Vital Signs Vital signs: Temp Pulse Resp BP Pulse Ox 98.1 F 60 16 142/73 H 100 03/07/19 04:11 03/07/19 04:03/07/19 04:03/07/19 04:03/07/19 04:11 Doctor's Discharge - Discharge [facility]errals: [facility] [Primary Care [facility]] - Follow up as needed
[2019-03-07 05:23] LABS: ABSOLUTE EOSINOPHILS # (AUTO) 0.1 10^3/uL (0.0-0.6); ABSOLUTE LYMPHOCYTES (AUTO) 1.7 10^3/uL (0.5-4.7); ABSOLUTE MONOCYTES (AUTO) 0.4 10^3/uL (0.1-1.4); ABSOLUTE NEUT (AUTO) 2.1 10^3/uL (1.7-8.2); BASOPHILS % (AUTO) 0.9 % (0-2); EOSINOPHILS % (AUTO) 3.3 % (0-6); HEMATOCRIT 41.1 % (37.9-51.0); HEMOGLOBIN 13.9 g/dL (13.5-17.0); LYMPHOCYTES % (AUTO) 40.1 % (13-45); MEAN CORPUSCULAR HGB CONC 33.8 g/dL (32.0-36.0); MEAN CORPUSCULAR VOLUME 89 fl (80-97); MONOCYTES % (AUTO) 8.4 % (3-13); PLATELET COUNT 260 10^3/uL (150-450); RED BLOOD COUNT 4.63 10^6/uL (4.35-5.55); RED CELL DISTRIBUTION WIDTH 14.2 % (11.5-14.0); SEGMENTED NEUTROPHILS % (AUTO) 47.3 % (42-78); TOTAL CELLS COUNTED % (AUTO) 100 %; WHITE BLOOD COUNT 4.3 10^3/uL (4.0-10.5)
[2019-03-07 05:38] LABS: ALBUMIN 4.2 g/dL (3.5-5.0); ALKALINE PHOSPHATASE 87 U/L (38-126); ANION GAP 9 (5-19); ASPARTATE AMINO TRANSFERASE 44 U/L (17-59); BILIRUBIN,DIRECT 0.4 mg/dL (0.0-0.4); BILIRUBIN,TOTAL 1.1 mg/dL (0.2-1.3); BLOOD UREA NITROGEN 17 mg/dL (7-20); CALCIUM 9.5 mg/dL (8.4-10.2); CARBON DIOXIDE 31 mmol/L (22-30); CHLORIDE 98 mmol/L (98-107); GLUCOSE 102 mg/dL (75-110); POTASSIUM 4.5 mmol/L (3.6-5.0); TOTAL PROTEIN 7.3 g/dL (6.3-8.2)
--- NOTE | 2019-03-07 05:50 | RADIOLOGY REPORT (SQ) ---
EXAM DESCRIPTION: XR CHEST 1 VIEW COMPLETED DATE/TME: 03/07/2019 05:08 CLINICAL HISTORY: 43 years Male, syncopal episodes COMPARISON:Dec 12 2018, CTA NUMBER OF VIEWS/TECHNIQUE: 1/AP FINDINGS: Adequate lung volume, clear parenchyma, normal cardiac silhouette, and intact bony thorax. IMPRESSION: No acute cardiopulmonary findings.
--- NOTE | 2019-03-07 06:39 | RADIOLOGY REPORT (SQ) ---
EXAM: CT Head Without Intravenous Contrast EXAM DATE/TIME: 03/07/2019 6:16 AM CLINICAL HISTORY: The patient is 43 years old and is Male; head injury TECHNIQUE: Axial computed tomography images of the head/brain without intravenous contrast. Sagittal and coronal reformatted images were created and reviewed. This CT exam was performed using one or more of the following dose reduction techniques: automated exposure control, adjustment of the mA and/or kV according to patient size, and/or use of iterative reconstruction technique. COMPARISON: CT brain from 07/21/2018 FINDINGS: BRAIN: Unremarkable. No obvious signs of acute infarct. No evidence of intracranial mass. No acute hemorrhage. VENTRICLES: Unremarkable. No ventriculomegaly. BONES/JOINTS: Unremarkable. No acute fracture. SOFT TISSUES: Unremarkable. SINUSES: Unremarkable as visualized. No acute sinusitis. MASTOID AIR CELLS: Unremarkable as visualized. No mastoid effusion. IMPRESSION: No acute intracranial findings.
--- NOTE | 2019-03-07 06:46 | RADIOLOGY REPORT (SQ) ---
EXAM: CT Cervical Spine Without Intravenous Contrast EXAM DATE/TIME: 03/07/2019 6:22 AM CLINICAL HISTORY: The patient is 43 years old and is Male; head injury, neck pain TECHNIQUE: Axial computed tomography images of the cervical spine without intravenous contrast. Sagittal and coronal reformatted images were created and reviewed. This CT exam was performed using one or more of the following dose reduction techniques: automated exposure control, adjustment of the mA and/or kV according to patient size, and/or use of iterative reconstruction technique. COMPARISON: No relevant prior studies available. FINDINGS: VERTEBRAE: No acute fracture. Vertebral body alignment is well-maintained. DISCS/SPINAL CANAL/NEURAL FORAMINA: Postsurgical changes of anterior cervical discectomy and fusion at C7-T1. Remaining intervertebral disc heights are well-maintained. There is no significant spinal canal stenosis visualized. There is neural foraminal narrowing which appears to be moderate to severe on the left at C6-7. Neural foraminal narrowing appears mild to moderate at the remaining levels. SOFT TISSUES: No significant prevertebral soft tissue swelling. IMPRESSION: No acute findings in the cervical spine.
--- NOTE | 2019-03-07 07:38 | EKG REPORT ---
SEVERITY:- NORMAL ECG - SINUS RHYTHM : Confirmed by: Mina Valdez MD 07-Mar-2019 07:38:06
[2019-03-07] MEDS ORDERED: ACETAMINOPHEN SUSP 160 MG/5 ML ORAL SYRING PO ONE (07:45)
[2019-03-07] MEDS ORDERED: NORMAL SALINE 1000 ML 1,000 ML IV PRN (07:47)
--- NOTE | 2019-03-07 07:55 | ER Document Report ---
ED General - General Chief Complaint: Passed Out Prior to Arrival Stated Complaint: FALL/HEAD INJURY Time Seen by Provider: 03/07/19 05:03 Primary Care Provider: [facility] [Primary Care Provider] - Follow up as needed TRAVEL OUTSIDE OF THE [place] IN LAST 30 DAYS: No - HPI Notes: Pino Beltre is a 43-year-old male with a chief complaint of syncope and fall. Patient was in bed at home overnight when his heard him get up to the bathroom. She says that he stumbled and fell between the bed and furniture. There was apparently no loss of consciousness at that time. She got him up and assisted him into the bathroom. He had a bowel movement and as he attempted to return to bed he fell again and this time did a "face plant" next to the bed. There may have been momentary loss of consciousness. He comes in now complaining of abrasions and swelling over the right forehead area and some dull headache and neck pain. Patient is apparently had some vasovagal syncope in the past. No history of seizures. No history of any recent head injury. Patient has had a gastric sleeve procedure done in the hospital but all else where within the last 12 months. He is basically on a liquid diet. He has intermittently been having problems with vomiting. No melena or hematochezia. Patient has a past history of migraine headaches. He also has a history of insomnia and sees a mental health provider who is treating him with Seroquel for insomnia/PTSD. Denies chest pain. Denies dyspnea. Denies any known history of thromboembolic disease. - Related Data Allergies/Adverse Reactions: No Known Drug Allergies Allergy (Verified 07/21/18 12:52) bee stings Allergy (Uncoded 07/21/18 12:52) Home Medications: lisinoproil, omeprazole, sleeping med Past Medical History - General Information source: Patient, Relative - Social History Smoking Status: Never Smoker Frequency of alcohol use: None Drug Abuse: None Lives with: Family Family History: CAD, Other - Kidney stones Patient has suicidal ideation: No Patient has homicidal ideation: No - Past Medical History Cardiac Medical History: Reports: Hx Hypertension - ON MEDS Denies: Hx Atrial Fibrillation, Hx Congestive Heart Failure, Hx Heart Attack, Hx Hypercholesterolemia Pulmonary Medical History: Reports: Hx Asthma - CHILD- NO MEDS CURRENTLY Denies: Hx Bronchitis, Hx COPD, Hx Pneumonia, Hx Tuberculosis Neurological Medical History: Reports: Hx Migraine. Denies: Hx Cerebrovascular Accident, Hx Seizures, Hx Parkinson's Disease Endocrine Medical History: Denies: Hx Diabetes Mellitus Type 1, Hx Diabetes Mellitus Type 2 Renal/ Medical History: Reports: Hx Kidney Stones - H/O, Hx Renal Insufficiency. Denies: Hx End Stage Renal Disease, Hx Peritoneal Dialysis Malignancy Medical History: Denies Hx Lung Cancer GI Medical History: Denies: Hx Hepatitis Musculoskeletal Medical History: Reports Hx Arthritis Psychiatric Medical History: Reports: Hx Attention Deficit Hyperactivity Disorder, Hx Post Traumatic Stress Disorder - & ANXIETY Denies: Hx Bipolar Disorder, Hx Dementia, Hx Depression, Hx Schizophrenia Traumatic Medical History: Reports: Hx Fractures - 4X L ANKLE,L TIB/FIB, R ANKLE, L ARM, 3X R ARM, R FINGER Infectious Medical History: Denies: Hx Hepatitis Past Surgical History: Reports: Hx Orthopedic Surgery - left knee X3, right knee, bilateral carpal tunnel. Denies: Hx Appendectomy, Hx Cholecystectomy, Hx Tonsillectomy - Immunizations Hx Diphtheria, Pertussis, Tetanus Vaccination: Yes Review of Systems - Review of Systems Notes: Constitutional: Negative for fever. HENT: Negative for sore throat. Eyes: Negative for visual changes. Cardiovascular: Negative for chest pain. Respiratory: Negative for shortness of breath. Gastrointestinal: Negative for abdominal pain, vomiting or diarrhea. Genitourinary: Negative for dysuria. Musculoskeletal: Negative for back pain. Skin: Negative for rash. Neurological: As per HPI. 10 point ROS negative except as marked above and in HPI. Physical Exam - Vital signs Vitals: Temp Pulse Resp BP Pulse Ox 98.1 F 60 16 142/73 H 100 03/07/19 04:11 03/07/19 04:11 03/07/19 04:11 03/07/19 04:03/07/19 04:11 - Notes Notes: GENERAL: Moderately obese how you male patient who appears approximately stated age appearing in no acute distress. SKIN: Good turgor no rashes. HEAD: Soft tissue swelling right forehead area with associated tenderness and a 3.5 x 2.0 cm area of superficial abrasion in the center of this. EYES: PERRLA. EOMI. Conjunctivae and sclerae clear. EARS: CANALS AND TMS CLEAR. NOSE: CLEAR. MOUTH: Moist mucosa. Good dentition. No stridor or edema. No drooling. NECK: Supple. No masses or thyromegaly. No adenopathy. Carotids 2+ without bruits. No JVD. BACK: Symmetrical without tenderness. CHEST: Respirations unlabored. Breath sounds clear and symmetrical. HEART: Regular rhythm. No murmur gallop or rub. ABDOMEN: Multiple laparoscopy scars present soft nontender without masses, organomegaly or rebound. Bowel sounds normally active. No bruits. GENITALIA: Deferred. EXTREMITIES: No edema. No calf tenderness. Cap refill less than 1.5 seconds. Dorsalis pedis and posterior tibial pulses 3+ and symmetrical. NEUROLOGICAL: GCS 15. Alert and oriented x3. Fluent speech. Cranial nerves II through XII intact. Sensorimotor and cerebellar normal. Normal tone. PSYCHIATRIC: Flat affect. Course - Re-evaluation Re-evalutation: 03/07/19 09:49 I suspect this man had a vasovagal episode possibly aggravated by volume depletion. I given him some additional fluids here. EKG did not show any acute changes. His urine tox screen is pending. His alcohol was less than 10. Troponin is normal. CBC and comprehensive metabolic profile are normal. I did do a d-dimer and this is mildly elevated. I have recommended CTA of the chest to rule out pulmonary embolus prior to disposition and patient agrees to this. 03/07/19 11:17 CTA of the chest is remarkable for segmental lower lobe PE bilaterally. Patient is started on Lovenox subcu and will be admitted by Dr. Kaur. - Vital Signs Vital signs: Temp Pulse Resp BP Pulse Ox 98.1 F 60 19 116/59 L 95 03/07/19 04:11 03/07/19 04:11 03/07/19 11:01 03/07/19 11:00 03/07/19 11:01 - Laboratory Result Diagrams: 03/07/19 04:50 03/07/19 04:50 Laboratory results interpreted by me: 03/07/19 03/07/19 03/07/19 04:50 04:50 04:50 RDW 14.2 H D-Dimer 1.05 H Carbon Dioxide 31 H Creatinine 1.38 H Est GFR (MDRD) Non-Af 56 L Urine Ascorbic Acid 03/07/19 08:05 RDW D-Dimer Carbon Dioxide Creatinine Est GFR (MDRD) Non-Af Urine Ascorbic Acid 20 H - Diagnostic Test Radiology reviewed: Reports reviewed - EKG Interpretation by Me Additional EKG results interpreted by me: 03/07/19 08:19 12-lead EKG obtained at 0759 hrs. interpreted contemporaneously by me. Normal sinus rhythm with rate of 73. Normal axis. Normal intervals. No acute ST/T wave changes. No prior tracing for comparison. Discharge - Discharge Clinical Impression: Syncope, Forehead abrasion/contusion Fall Qualifiers: Encounter type: initial encounter Qualified Code(s): W19.XXXA - Unspecified fall, initial encounter Acute pulmonary embolism Qualifiers: Pulmonary embolism type: unspecified Acute cor pulmonale presence: without acute cor pulmonale Qualified Code(s): I26.99 - Other pulmonary embolism without acute cor pulmonale Condition: Fair Disposition: ADMITTED INPATIENT Admitting Provider: Liz (Hospitalist) Unit Admitted: Telemetry [facility]errals: [facility] [Primary Care [facility]] - Follow up as needed
[2019-03-07 08:22] LABS: APPEARANCE,URINE CLEAR; BILIRUBIN,URINE NEGATIVE (NEGATIVE); COLOR,URINE YELLOW; GLUCOSE, URINE NEGATIVE (NEGATIVE); KETONES,URINE NEGATIVE (NEGATIVE); LEUKOCYTE ESTERASE,URINE NEGATIVE (NEGATIVE); NITRITE,URINE NEGATIVE (NEGATIVE); PROTEIN,URINE NEGATIVE (NEGATIVE); URINE SPECIFIC GRAVITY 1.014; UROBILINOGEN,URINE NEGATIVE mg/dL (<2.0)
[2019-03-07 09:49] LABS: URINE AMPHETAMINES SCREEN NEGATIVE; URINE BARBITURATES SCREEN NEGATIVE; URINE BENZODIAZEPINES SCREEN NEGATIVE; URINE COCAINE SCREEN NEGATIVE; URINE MARIJUANA (THC) SCREEN NEGATIVE; URINE METHADONE SCREEN NEGATIVE; URINE PHENCYCLIDINE SCREEN NEGATIVE
--- NOTE | 2019-03-07 10:54 | RADIOLOGY REPORT (SQ) ---
EXAM DESCRIPTION: CTA CHEST COMPLETED DATE/TIME: 03/07/2019 10:31 am REASON FOR STUDY: Syncope and elevated d-dimer COMPARISON: CTA of the chest from 12/12/2018. TECHNIQUE: CT scan of the chest performed using helical scanning technique with dynamic intravenous contrast injection. Images reviewed with lung, soft tissue and bone windows. Reconstructed coronal and sagittal MPR images reviewed. Additional 3 dimensional post-processing performed to develop Maximal Intensity Projection images (GA P). All images stored on PACS. All CT scanners at this facility use dose modulation, iterative reconstruction, and/or weight based d osing when appropriate to reduce radiation dose to as low as reasonably achievable (ALARA). [facility]: Dose Right [facility]: CareDose [facility]: Dose Right [facility]: Teradose 4D [facility]: GradFly CONTRAST TYPE AND DOSE: Contrast/concentration: Isovue 350.00 mg/ml; Total Contrast Delivered: 74.0 ml; Total Saline Delivered: 56.3 ml Contrast bolus optimized for the pulmonary arteries. RENAL FUNCTION: Creatinine 1.38 milligrams/deciliter. RADIATION DOSE: CT Rad equipment meets quality standard of care and radiation dose reduction techniq ues were employed. CTDIvol: 3.3 - 28.5 mGy. DLP: 1115 mGy-cm. LIMITATIONS: None. FINDINGS: LUNGS AND PLEURA: The trachea main bronchi are patent. There is no consolidation, pleural effusion or pneumothorax. AORTA AND GREAT VESSELS: Evaluation is limited as the contrast bolus was optimized for evaluation of the pulmonary arteries. There is no thoracic aortic aneurysm. HEART: Cardiomegaly. There is no pericardial effusion. PULMONARY ARTERIES: There are filling defects within segmental branches of the pulmonary arteries to the right and left lower lobes (image 73 of series 3). The interventricular septum is flattened. Th ere is no reflux of contrast into the hepatic veins. HILAR AND MEDIASTINAL STRUCTURES: No adenopathy or mass. HARDWARE: None in the chest. UPPER ABDOMEN: Hiatal hernia, hepatic steatosis, and postoperative findings around the gastroesophage al junction consistent with prior bypass. THYROID AND OTHER SOFT TISSUES: No masses or adenopathy. BONES: No acute findings. 3D MIPS: Confirm above findings. OTHER: No other finding. IMPRESSION: Filling defects within segmental branches of the pulmonary arteries to the right and lef t lower lobes (image 73 of series 3) consistent with acute emboli. COMMENT: Quality ID # [id number]: Final reports with documentation of one or more dose reduction techniques (e.g., Automated exposure control, adjustment of the mA and/or kV according to patient size, use of iterative reconstruction technique) TECHNICAL DOCUMENTATION: JOB ID: [id number] [employer]- All Rights Reserved Reading location - IP/workstation name: [email or web address]
[2019-03-07] MEDS ORDERED: ENOXAPARIN SODIUM INJ 150 MG/1 ML DISP.SYRIN SUBCUT ONE (11:14)
[2019-03-07 11:21] LABS: PARTIAL THROMBOPLASTIN TIME 27.2 SEC (23.5-35.8); PROTHROMBIN TIME 16.3 SEC (11.4-15.4)
[2019-03-07] MEDS ORDERED: ONDANSETRON HCL INJ/PF 4 MG/2 ML SDV IV PRN (11:38)
--- NOTE | 2019-03-07 11:54 | PDOC H&P ---
History of Present Illness Admission Date/PCP: 03/07/19 11:24 [facility] Patient complains of: Fall with loss of consciousness History of Present Illness: GOLDY GREEN is a 43 year old male with history of morbid obesity and a bariatric surgery in December last year, hypertension, PTSD, chronic back pains and joint pains on narcotics brought in by EMS after he fell and passed out in the restroom. His called EMS and patient was brought to the hospital for further evaluation and a CT of the chest indicates bilateral lower lobe acute pulmonary emboli. Patient vital signs are stable denies any chest pains denies any shortness of breath. Patient agreed to stay in this hospital for further management. Denies any previous history of pulmonary embolism. Denies any history of DVTs. Denies any family of clotting disorders. ER physician is going to give her Lovenox 1 mg/kg dose. Past Medical History Cardiac Medical History: Reports: Hypertension - ON MEDS Denies: Atrial Fibrillation, Congestive Heart Failure, Myocardial Infarction, Hyperlipidema Pulmonary Medical History: Reports: Asthma - CHILD- NO MEDS CURRENTLY Denies: Bronchitis, Chronic Obstructive Pulmonary Disease (COPD), Pneumonia, Tuberculosis Neurological Medical History: Reports: Migraine Denies: Seizures Endocrine Medical History: Denies: Diabetes Mellitus Type 1, Diabetes Mellitus Type 2 Renal/ Medical History: Denies: End Stage Renal Disease Malignancy Medical History: Denies: Lung Cancer GI Medical History: Denies: Hepatitis Musculoskeltal Medical History: Reports: Arthritis Psychiatric Medical History: Reports: Attention Deficit Hyperactivity Disorder, Post Traumatic Stress Disorder - & ANXIETY Denies: Bipolar Disorder, Dementia, Depression Hematology: Reports: None Infectious Medical History: Reports: None Past Surgical History Past Surgical History: Reports: Orthopedic Surgery - left knee X3, right knee, bilateral carpal tunnel, Other - Patient has cervical and surgery, left knee repair and right knee repair. Denies: Appendectomy, Cholecystectomy, Tonsillectomy Social History Information Source: Patient Lives with: Family Smoking Status: Never Smoker Electronic Cigarette use?: No Frequency of Alcohol Use: None Hx Recreational Drug Use: No Drugs: None Hx Prescription Drug Abuse: No - Advance Directive Resuscitation Status: Full Code Family History Family History: CAD, Other - Kidney stones Parental Family History Reviewed: Yes - No significant family history. Children Family History Reviewed: Yes Sibling(s) Family History Reviewed.: Yes Medication/Allergy Home Medications: Dextroamphetamine/Amphetamine [Adderall XR 20 mg Capsule] 2 cap.sr PO DAILY 05/13/18 Hydrocodone/Acetaminophen [Graff 10-325 mg Tablet] 1 tab PO TIDP PRN 05/13/18 Linaclotide [Linzess 145 Mcg Capsule] 145 mcg PO DAILY 05/13/18 Lisinopril [Prinivil 10 mg Tablet] 10 mg PO DAILY 05/13/18 Quetiapine Fumarate [Seroquel] 200 mg PO QHS 05/13/18 Ondansetron [Zofran Odt 4 mg Tablet] 1 - 2 tab PO Q4H PRN #15 tab.rapdis 07/21/18 Benzonatate [Tessalon Perle 100 mg Capsule] 100 mg PO Q8HP PRN #15 cap 12/12/18 Ibuprofen [Motrin 800 mg Tablet] 800 mg PO Q8H PRN #15 tab 12/12/18 Allergies/Adverse Reactions: No Known Drug Allergies Allergy (Verified 07/21/18 12:52) bee stings Allergy (Uncoded 07/21/18 12:52) Review of Systems Constitutional: ABSENT: fatigue, fever(s), headache(s), night sweats, weakness Eyes: ABSENT: visual disturbances Ears: ABSENT: hearing changes Nose, Mouth, and Throat: ABSENT: vertigo Cardiovascular: ABSENT: dyspnea on exertion, edema, orthropnea Respiratory: ABSENT: dyspnea, hemoptysis Gastrointestinal: ABSENT: diarrhea, dysphagia, heartburn, hematemesis, melena, nausea, vomiting Integumentary: ABSENT: rash, wounds Neurological: PRESENT: syncope, other - Patient passed out at home bruises on the face. Psychiatric: ABSENT: anxiety, depression, homidical ideation, suicidal ideation Physical Exam Vital Signs: Temp Pulse Resp BP Pulse Ox 98.1 F 60 19 116/59 L 95 03/07/19 04:11 03/07/19 04:11 03/07/19 11:01 03/07/19 11:00 03/07/19 11:01 Intake & Output 03/06/19 03/07/19 03/08/19 06:59 06:59 06:59 Intake Total 500 500 Balance 500 500 Weight 128.18 kg General appearance: PRESENT: no acute distress, morbidly obese Head exam: PRESENT: atraumatic Eye exam: PRESENT: PERRLA Mouth exam: PRESENT: moist, tongue midline Neck exam: ABSENT: carotid bruit, JVD, lymphadenopathy, thyromegaly Respiratory exam: PRESENT: clear to auscultation parviz. ABSENT: rales, rhonchi, wheezes Cardiovascular exam: PRESENT: RRR. ABSENT: diastolic murmur, rubs, systolic murmur GI/Abdominal exam: PRESENT: normal bowel sounds, soft. ABSENT: distended, guarding, mass, organolmegaly, rebound, tenderness Rectal exam: PRESENT: deferred Extremities exam: PRESENT: full ROM. ABSENT: calf tenderness, clubbing, pedal edema Neurological exam: PRESENT: alert, awake, oriented to person, oriented to place, oriented to time, oriented to situation, CN II-XII grossly intact. ABSENT: motor sensory deficit Psychiatric exam: PRESENT: appropriate affect, normal mood. ABSENT: homicidal ideation, suicidal ideation Results Laboratory Results: 03/07/19 04:50 03/07/19 04:50 03/07/19 03/07/19 03/07/19 04:50 04:50 08:05 WBC 4.3 RBC 4.63 Hgb 13.9 Hct 41.1 MCV 89 MCH 30.0 MCHC 33.8 RDW 14.2 H Plt Count 260 Seg Neutrophils % 47.3 Sodium 137.9 Potassium 4.5 Chloride 98 Carbon Dioxide 31 H Anion Gap 9 BUN 17 Creatinine 1.38 H Est GFR ( Amer) > 60 Glucose 102 Calcium 9.5 Total Bilirubin 1.1 AST 44 Alkaline Phosphatase 87 Total Protein 7.3 Albumin 4.2 Urine Color YELLOW Urine Appearance CLEAR Urine pH 8.0 Ur Specific [place] 1.014 Urine Protein NEGATIVE Urine Glucose (UA) NEGATIVE Urine Ketones NEGATIVE Urine Blood NEGATIVE Urine Nitrite NEGATIVE Ur Leukocyte Esterase NEGATIVE Urine WBC (Auto) 1 Urine RBC (Auto) 0 03/07/19 04:50 Troponin I < 0.012 Impressions: Cervical Spine CT 03/07/19 05:08 IMPRESSION: No acute findings in the cervical spine. Chest X-Ray 03/07/19 05:08 IMPRESSION: No acute cardiopulmonary findings. Head CT 03/07/19 05:08 IMPRESSION: No acute intracranial findings. Chest/Abdomen CTA 03/07/19 09:48 IMPRESSION: Filling defects within segmental branches of the pulmonary arteries to the right and left lower lobes (image 73 of series 3) consistent with acute emboli. Assessment and Plan - Diagnosis (1) Acute pulmonary embolism Qualifiers: Pulmonary embolism type: unspecified Acute cor pulmonale presence: without acute cor pulmonale Qualified Code(s): I26.99 - Other pulmonary embolism without acute cor pulmonale Is this a current diagnosis for this admission?: Yes Plan: 03/07/2019-patient is going to be admitted to [facility] as an inpatient with a diagnosis of acute bilateral pulmonary embolism. To start on Lovenox 1 mg/kg subcu every 12 hours. GI prophylaxis initiated. Placed on oxygen 2 L nasal cannula, echocardiogram was requested and a DVT studies requested. EKG is normal sinus rhythm. (2) Fall Qualifiers: Encounter type: initial encounter Qualified Code(s): W19.XXXA - Unspecified fall, initial encounter Is this a current diagnosis for this admission?: Yes Plan: 03/07/2019-patient admitted with history of fall associated with a loss of consciousness. CT head was negative. At the time of my examination alert and awake oriented communicating well. (3) HTN (hypertension) Is this a current diagnosis for this admission?: No Plan: 03/07/2019-patient has history of chronic essential hypertension on lisinopril at home which was resumed. Blood pressure today is 116/60. (4) Morbid obesity with BMI of 40.0-44.9, adult Is this a current diagnosis for this admission?: No Plan: 03/07/2019-patient's BMI is more than 39. Diet exercise weight loss lifestyle modifications discussed with the patient. (5) PTSD (post-traumatic stress disorder) Is this a current diagnosis for this admission?: No Plan: 03/07/2019-patient has history of PTSD plan is to resume Seroquel 200 mg p.o. nightly.
[2019-03-07] MEDS: ENOXAPARIN SODIUM INJ 150 MG/1 ML DISP.SYRIN SUBCUT SCH ×2 (12:30→22:08)
--- NOTE | 2019-03-07 13:04 | EKG REPORT ---
SEVERITY:- NORMAL ECG - SINUS RHYTHM : Confirmed by: Mina Valdez MD 07-Mar-2019 13:04:08
[2019-03-07] MEDS ORDERED: HYDROCODONE/ACETAMINOPHEN 10-325 MG TABLET ONE (14:06)
[2019-03-07] MEDS: HYDROCODONE/ACETAMINOPHEN 5-325 MG TABLET PO PRN ×2 (14:11→18:12)
[2019-03-07 14:23] LABS: CREATINE KINASE MB 1.38 ng/mL (<4.55)
[2019-03-07 14:50] LABS: TROPONIN I < 0.012 ng/mL
[2019-03-07] MEDS ORDERED: (PENDING PHARMACY ID) (Oxycodone Hcl [Oxycodone Hcl] 5 MG) PO PRN (15:56)
[2019-03-07] MEDS: OXYCODONE HCL IR 5 MG TABLET PO PRN ×2 (16:24→22:05)
[2019-03-07] MEDS: PANTOPRAZOLE SODIUM 40 MG TABLET.DR PO SCH (17:29)
[2019-03-07] MEDS: DOCUSATE SODIUM 100 MG CAPSULE PO SCH (17:29)
[2019-03-07 20:29] LABS: CREATINE KINASE MB 1.31 ng/mL (<4.55)
[2019-03-07 20:32] LABS: TROPONIN I < 0.012 ng/mL
[2019-03-07] MEDS ORDERED: (PENDING PHARMACY ID) (Quetiapine Fumarate [Seroquel] 200 MG) PO SCH (22:00)
[2019-03-07] MEDS: QUETIAPINE FUMARATE 100 MG TABLET PO SCH (22:05)
[2019-03-08 01:41] LABS: TROPONIN I < 0.012 ng/mL
[2019-03-08] MEDS: HYDROCODONE/ACETAMINOPHEN 5-325 MG TABLET PO PRN ×2 (01:42→08:27)
[2019-03-08] MEDS: PANTOPRAZOLE SODIUM 40 MG TABLET.DR PO SCH ×2 (06:21→18:01)
[2019-03-08 07:06] LABS: ABSOLUTE EOSINOPHILS # (AUTO) 0.1 10^3/uL (0.0-0.6); ABSOLUTE MONOCYTES (AUTO) 0.4 10^3/uL (0.1-1.4); ABSOLUTE NEUT (AUTO) 1.8 10^3/uL (1.7-8.2); BASOPHILS % (AUTO) 0.8 % (0-2); EOSINOPHILS % (AUTO) 2.8 % (0-6); HEMATOCRIT 37.6 % (37.9-51.0); HEMOGLOBIN 12.6 g/dL (13.5-17.0); LYMPHOCYTES % (AUTO) 45.7 % (13-45); MEAN CORPUSCULAR HEMOGLOBIN 29.7 pg (27.0-33.4); MEAN CORPUSCULAR HGB CONC 33.6 g/dL (32.0-36.0); MEAN CORPUSCULAR VOLUME 88 fl (80-97); MONOCYTES % (AUTO) 9.1 % (3-13); PLATELET COUNT 227 10^3/uL (150-450); RED BLOOD COUNT 4.25 10^6/uL (4.35-5.55); RED CELL DISTRIBUTION WIDTH 14.1 % (11.5-14.0); SEGMENTED NEUTROPHILS % (AUTO) 41.6 % (42-78); TOTAL CELLS COUNTED % (AUTO) 100 %; WHITE BLOOD COUNT 4.3 10^3/uL (4.0-10.5)
[2019-03-08 07:13] LABS: INTERNATIONAL RATION (INR) 1.36; PROTHROMBIN TIME 16.8 SEC (11.4-15.4)
[2019-03-08 07:14] LABS: PARTIAL THROMBOPLASTIN TIME 37.8 SEC (23.5-35.8)
[2019-03-08 07:21] LABS: ALBUMIN 3.5 g/dL (3.5-5.0); ALKALINE PHOSPHATASE 86 U/L (38-126); ANION GAP 5 (5-19); ASPARTATE AMINO TRANSFERASE 29 U/L (17-59); BILIRUBIN,TOTAL 1.1 mg/dL (0.2-1.3); BLOOD UREA NITROGEN 10 mg/dL (7-20); CALCIUM 9.3 mg/dL (8.4-10.2); CARBON DIOXIDE 29 mmol/L (22-30); CHLORIDE 104 mmol/L (98-107); CHOLESTEROL 141.49 mg/dL (0-200); GLUCOSE 88 mg/dL (75-110); POTASSIUM 4.3 mmol/L (3.6-5.0); TOTAL PROTEIN 6.3 g/dL (6.3-8.2); TRIGLYCERIDES 124 mg/dL (<150)
[2019-03-08 07:32] LABS: DIRECT LDL 96 mg/dL (<100)
[2019-03-08] MEDS: ONDANSETRON HCL INJ/PF 4 MG/2 ML SDV IV PRN ×2 (08:27→18:01)
[2019-03-08] MEDS: OXYCODONE HCL IR 5 MG TABLET PO PRN (10:22)
[2019-03-08] MEDS: LISINOPRIL 10 MG TABLET PO SCH (10:22)
[2019-03-08] MEDS: DOCUSATE SODIUM 100 MG CAPSULE PO SCH ×2 (10:23→18:01)
[2019-03-08] MEDS: ENOXAPARIN SODIUM INJ 150 MG/1 ML DISP.SYRIN SUBCUT SCH ×2 (10:23→21:14)
[2019-03-08] MEDS ORDERED: HYDROMORPHONE HCL INJ/PF 2 MG/ML AMPULE IV ONE (10:45)
--- NOTE | 2019-03-08 12:39 | XCELERA REPORT ---
[address] [facility] [address] Lower Extremity Venous Evaluation Procedure: Color flow and duplex imaging bilaterally of the veins of the lower extremities as well as the Common Femoral veins. Right Sided Venous Evaluation Normal vessel filling wall to wall, compression and augmentation as well as Colour flow down to the infrageniculate veins. Left Sided Venous Evaluation Normal vessel filling wall to wall, compression and augmentation as well as Colour flow down to the infrageniculate veins. Interpretation Summary No duplex evidence of DVT or obstruction in the bilateral lower extremities. Name: GOLDY GREEN Age: 43 yrs Gender: Male : 1975 Patient Status: Inpatient Patient Location: [address] [place], [place] [address] Study Date: 03/07/2019 08:16 PM Reason For Study: pulm embolism Ordering Physician: LALO CARREON Performed By: Isha Queen : LALO CARREON > Oleg Harrell
[2019-03-08] MEDS: OXYCODONE-ACETAMINOPHEN 5-325 MG TABLET PO PRN ×2 (13:36→18:00)
--- NOTE | 2019-03-08 13:44 | PDOC PROGRESS REPORT ---
Subjective Progress Note for:: 03/08/19 Reason For Visit: PULMONARY EMBOLISM 03/08/2019 Patient admitted for bilateral lower lobe pulmonary emboli, onset is unknown as he has been complaining of shortness of breath for several months Physical Exam Vital Signs: Temp Pulse Resp BP Pulse Ox 98.1 F 59 L 18 143/70 H 92 03/08/19 11:23 03/08/19 11:23 03/08/19 11:23 03/08/19 11:23 03/08/19 11:23 Intake & Output 03/07/19 03/08/19 03/09/19 06:59 06:59 06:59 Intake Total 500 2460 Balance 500 2460 Weight 128.18 kg 131 kg General appearance: PRESENT: no acute distress, well-developed, well-nourished, other - Sitting up in bed speaking in full sentences, primarily concerned about his pain medication Respiratory exam: PRESENT: clear to auscultation parviz. ABSENT: rales, rhonchi, wheezes Cardiovascular exam: PRESENT: RRR. ABSENT: diastolic murmur, rubs, systolic murmur Neurological exam: PRESENT: alert, awake, oriented to person, oriented to place, oriented to time, oriented to situation, CN II-XII grossly intact. ABSENT: motor sensory deficit Psychiatric exam: PRESENT: anxious Results Laboratory Results: 03/08/19 06:49 03/08/19 06:49 03/08/19 03/08/19 03/08/19 06:49 06:49 06:49 WBC 4.3 RBC 4.25 L Hgb 12.6 L Hct 37.6 L MCV 88 MCH 29.7 MCHC 33.6 RDW 14.1 H Plt Count 227 Seg Neutrophils % 41.6 L Sodium 137.9 Potassium 4.3 Chloride 104 Carbon Dioxide 29 Anion Gap 5 BUN 10 Creatinine 1.20 Est GFR ( Amer) > 60 Glucose 88 Calcium 9.3 Magnesium 2.3 Total Bilirubin 1.1 AST 29 Alkaline Phosphatase 86 Total Protein 6.3 Albumin 3.5 Triglycerides 124 Cholesterol 141.49 LDL Cholesterol Direct 96 VLDL Cholesterol 25.0 HDL Cholesterol 27 L TSH 1.03 03/07/19 03/07/19 03/07/19 04:50 13:20 13:20 Creatine Kinase 342 H CK-MB (CK-2) 1.38 Troponin I < 0.012 < 0.012 NT-Pro-B Natriuret Pep 03/07/19 03/07/19 03/08/19 19:21 19:21 00:58 Creatine Kinase 251 H 254 H CK-MB (CK-2) 1.31 Troponin I < 0.012 NT-Pro-B Natriuret Pep 03/08/19 03/08/19 00:58 06:49 Creatine Kinase CK-MB (CK-2) 1.10 Troponin I < 0.012 NT-Pro-B Natriuret Pep 25 Impressions: Cervical Spine CT 03/07/19 05:08 IMPRESSION: No acute findings in the cervical spine. Chest X-Ray 03/07/19 05:08 IMPRESSION: No acute cardiopulmonary findings. Head CT 03/07/19 05:08 IMPRESSION: No acute intracranial findings. Chest/Abdomen CTA 03/07/19 09:48 IMPRESSION: Filling defects within segmental branches of the pulmonary arteries to the right and left lower lobes (image 73 of series 3) consistent with acute emboli. Assessment and Plan - Diagnosis (1) Pulmonary embolism Is this a current diagnosis for this admission?: Yes (2) HTN (hypertension) Is this a current diagnosis for this admission?: Yes (3) Morbid obesity with BMI of 40.0-44.9, adult Is this a current diagnosis for this admission?: No (4) PTSD (post-traumatic stress disorder) Is this a current diagnosis for this admission?: Yes (5) Acute kidney injury Is this a current diagnosis for this admission?: Yes (6) Elevated d-dimer Is this a current diagnosis for this admission?: Yes - Plan Summary Summary: 03/08/2019 Patient was admitted to the hospital with a fall and a loss of consciousness yesterday. Patient denied chest pain or shortness of breath in the ER. Patient has CT scan shows bilateral lower lobe pulmonary emboli he is currently on Lovenox 1 mg/kg every 12 hours Temperature 97.9 pulse 68 blood pressure 146/72 O2 sat 94% on room air Back in December patient had bariatric surgery and is lost over 100 pounds since December he has been seen by [facility] pain management for the last 3 years generative disc disease Patient states he gets Percocet 11/19/2019 560/month and oxycodone 5 mg 60/month Will be switched to p.o. Eliquis tomorrow and plan on discharging patient Patient had bilateral venous Doppler study performed which showed no evidence of DVT or obstruction in the bilateral lower extremities Echocardiogram is still pending Patient was switched from [place] to Percocet today, continue his oxycodone - Time Time Spent with patient: 35 or more minutes
--- NOTE | 2019-03-08 15:00 | XCELERA REPORT ---
[address] [address] Transthoracic Echocardiogram Report Name: GOLDY GREEN Age: 43 yrs Gender: Male : 1975 Patient Status: Inpatient Patient Location: [facility]^A Study Date: 03/07/2019 08:42 PM History: Pulmonary embolism Height: 71 in Weight: 282 lb BSA: 2.4 m2 Procedure: A complete two-dimensional transthoracic echocardiogram was performed (2D, M-mode, spectral and color flow Doppler). The study was technically difficult with many images being suboptimal in quality. Reason For Study: pulm embolism Previous Evaluation: No previous studies were available. History: Pulmonary embolism. Ordering Physician: LALO CARREON Performed By: Isha Queen Interpretation Summary The study was technically difficult with many images being suboptimal in quality. Left ventricular systolic function is normal. The Ejection Fraction estimate is 55-60% The right ventricle is normal in size and function. There is a trace amount of mitral regurgitation There is no aortic valve stenosis There is a trace amount of tricuspid regurgitation There is no pericardial effusion. MMode/2D Measurements & Calculations RVDd: 2.0 cm LVIDd: 4.1 cm FS: 32.5 % Ao root diam: 3.3 cm IVSd: 1.2 cm LVIDs: 2.8 cm EDV(Teich): 74.2 ml Ao root area: 8.5 cm2 LVPWd: 1.2 cm ESV(Teich): 28.7 ml LA dimension: 2.8 cm EF(Teich): 61.3 % Doppler Measurements & Calculations MV E max kiki: MV P1/2t max kiki: Ao V2 max: LV V1 max P.5 cm/sec 81.4 cm/sec 116.4 cm/sec 4.3 mmHg MV A max kiki: MV P1/2t: 47.2 msec Ao max PG: LV V1 max: 94.8 cm/sec MVA(P1/2t): 4.7 cm2 5.4 mmHg 104.1 cm/sec MV E/A: 0.83 MV dec slope: 505.4 cm/sec2 MV dec time: 0.22 sec PA V2 max: MV P1/2t-pr_phl: 123.5 cm/sec 47.2 msec PA max P.1 mmHg Left Ventricle The left ventricle is grossly normal size. There is severe concentric left ventricular hypertrophy. Left ventricular systolic function is normal. The Ejection Fraction estimate is 55-60%. Doppler measurements suggest impaired left ventricular relaxation, which is associated with grade I/IV or mild diastolic dysfunction. Right Ventricle The right ventricle is normal in size and function. Atria The right atrium is normal. The left atrial size is normal. Mitral Valve The mitral valve is grossly normal. There is no mitral valve stenosis. There is a trace amount of mitral regurgitation. Aortic Valve The aortic valve is normal in structure and function. The aortic valve is trileaflet. The aortic valve opens well. There is no aortic valve stenosis. No aortic regurgitation is present. Tricuspid Valve The tricuspid valve is normal in structure and function. There is a trace amount of tricuspid regurgitation. Tricuspid regurgitation jet envelope not well defined to measure RV systolic pressure accurately. Pulmonic Valve The pulmonic valve is not well visualized. There is a trace or physiologic amount of pulmonic regurgitation. Great Vessels The aortic root is normal size. The inferior vena cava appeared normal and decreased > 50% with respiration (RAP 5-10 mmHg). Effusions There is no pericardial effusion. : LALO CARREON Anil
[2019-03-08] MEDS ORDERED: MORPHINE SULFATE 10 MG/ML INJ IV PRN ×2 (20:50)
[2019-03-08] MEDS: MORPHINE SULFATE 10 MG/ML INJ IV PRN (21:13)
[2019-03-08] MEDS: QUETIAPINE FUMARATE 100 MG TABLET PO SCH (22:15)
[2019-03-09] MEDS: MORPHINE SULFATE 10 MG/ML INJ IV PRN ×2 (03:13→05:21)
[2019-03-09 04:39] LABS: HEMATOCRIT 36.6 % (37.9-51.0); HEMOGLOBIN 12.3 g/dL (13.5-17.0); MEAN CORPUSCULAR HEMOGLOBIN 29.4 pg (27.0-33.4); MEAN CORPUSCULAR HGB CONC 33.6 g/dL (32.0-36.0); MEAN CORPUSCULAR VOLUME 88 fl (80-97); PLATELET COUNT 235 10^3/uL (150-450); RED BLOOD COUNT 4.18 10^6/uL (4.35-5.55); WHITE BLOOD COUNT 4.9 10^3/uL (4.0-10.5)
[2019-03-09] MEDS: PANTOPRAZOLE SODIUM 40 MG TABLET.DR PO SCH (05:21)
[2019-03-09 07:03] LABS: APPEARANCE,URINE CLEAR; BILIRUBIN,URINE NEGATIVE (NEGATIVE); COLOR,URINE YELLOW; GLUCOSE, URINE NEGATIVE (NEGATIVE); KETONES,URINE NEGATIVE (NEGATIVE); LEUKOCYTE ESTERASE,URINE NEGATIVE (NEGATIVE); NITRITE,URINE NEGATIVE (NEGATIVE); PROTEIN,URINE NEGATIVE (NEGATIVE); URINE SPECIFIC GRAVITY 1.016; UROBILINOGEN,URINE NEGATIVE mg/dL (<2.0)
[2019-03-09] MEDS ORDERED: OXYCODONE-ACETAMINOPHEN 5-325 MG TABLET PO PRN ×2 (09:13→10:01)
[2019-03-09] MEDS ORDERED: OXYCODONE HCL IR 5 MG TABLET PO PRN (09:14)
[2019-03-09] MEDS: DOCUSATE SODIUM 100 MG CAPSULE PO SCH (09:45)
[2019-03-09] MEDS: LISINOPRIL 10 MG TABLET PO SCH (09:45)
[2019-03-09] MEDS ORDERED: APIXABAN 5 MG TABLET PO SCH (10:00)
[2019-03-09] MEDS ORDERED: OXYCODONE-ACETAMINOPHEN 5-325 MG TABLET ONE (10:02)
[2019-03-09] MEDS: ONDANSETRON HCL INJ/PF 4 MG/2 ML SDV IV PRN (10:03)
[2019-03-09 10:50] VITALS: BP 132/75
--- NOTE | 2019-03-09 16:47 | PDOC DISCHARGE SUMMARY ---
Impression - Admit/DC Date/PCP Admission Date/Primary Care Provider: 03/07/19 11:24 [facility] Discharge Date: 03/09/19 - Discharge Diagnosis (1) Pulmonary embolism Is this a current diagnosis for this admission?: Yes (2) HTN (hypertension) Is this a current diagnosis for this admission?: Yes (3) Morbid obesity with BMI of 40.0-44.9, adult Is this a current diagnosis for this admission?: No (4) PTSD (post-traumatic stress disorder) Is this a current diagnosis for this admission?: Yes (5) Acute kidney injury Is this a current diagnosis for this admission?: Yes (6) Elevated d-dimer Is this a current diagnosis for this admission?: Yes - Assessment Summary: 03/08/2019 Patient was admitted to the hospital with a fall and a loss of consciousness yesterday. Patient denied chest pain or shortness of breath in the ER. Patient has CT scan shows bilateral lower lobe pulmonary emboli he is currently on Lovenox 1 mg/kg every 12 hours Temperature 97.9 pulse 68 blood pressure 146/72 O2 sat 94% on room air Back in December patient had bariatric surgery and is lost over 100 pounds since December he has been seen by [facility] pain management for the last 3 years generative disc disease Patient states he gets Percocet 11/19/2019 560/month and oxycodone 5 mg 60/month Will be switched to p.o. Eliquis tomorrow and plan on discharging patient Patient had bilateral venous Doppler study performed which showed no evidence of DVT or obstruction in the bilateral lower extremities Echocardiogram is still pending Patient was switched from [place] to Percocet today, continue his oxycodone 03/09/2019 Switch patient over to Eliquis 10 mg twice daily for 7 days then 5 mg twice daily for 6 months. I wrote for a 3-week supply Is Doppler showed no evidence of DVT echo showed no evidence of vegetation Patient will continue his pain management as previous to admission [facility] 5 to 7 days Final diagnosis is fall, bilateral pulmonary emboli, hypertension, posttraumatic stress disorder, chronic pain, narcotic usage - Additional Information Resuscitation Status: Full Code Discharge Activity: Balance Activity w/Rest, Walk Frequently [facility] [[facility] - Follow up as needed Prescriptions: Apixaban [Eliquis 5 mg Tablet] 10 mg PO BID 21 Days #60 tablet Home Medications: Lisinopril [Prinivil 10 mg Tablet] 10 mg PO DAILY 05/13/18 Quetiapine Fumarate [Seroquel] 200 mg PO QHS 05/13/18 Omeprazole 20 mg PO DAILY 03/07/19 Oxycodone HCl 5 mg PO Q4HP PRN 03/07/19 Apixaban [Eliquis 5 mg Tablet] 10 mg PO BID 21 Days #60 tablet 03/09/19 History of Present Illiness History of Present Illness: GOLDY GREEN is a 43 year old male Physical Exam Vital Signs: Temp Pulse Resp BP Pulse Ox 98.2 F 66 16 132/75 H 97 03/09/19 10:48 03/09/19 10:48 03/09/19 10:48 03/09/19 10:48 03/09/19 10:48 Intake & Output 03/08/19 03/09/19 03/10/19 06:59 06:59 06:59 Intake Total 2460 720 Output Total 250 Balance 2460 470 Weight 131 kg 130 kg Results Laboratory Results: WBC 4.9 10^3/uL (4.0-10.5) 03/09/19 04:05 RBC 4.18 10^6/uL (4.35-5.55) L 03/09/19 04:05 Hgb 12.3 g/dL (13.5-17.0) L 03/09/19 04:05 Hct 36.6 % (37.9-51.0) L 03/09/19 04:05 MCV 88 fl (80-97) 03/09/19 04:05 MCH 29.4 pg (27.0-33.4) 03/09/19 04:05 MCHC 33.6 g/dL (32.0-36.0) 03/09/19 04:05 RDW 14.0 % (11.5-14.0) 03/09/19 04:05 Plt Count 235 10^3/uL (150-450) 03/09/19 04:05 Lymph % (Auto) 45.7 % (13-45) H 03/08/19 06:49 Fleming % (Auto) 9.1 % (3-13) 03/08/19 06:49 Eos % (Auto) 2.8 % (0-6) 03/08/19 06:49 Baso % (Auto) 0.8 % (0-2) 03/08/19 06:49 Absolute Neuts (auto) 1.8 10^3/uL (1.7-8.2) 03/08/19 06:49 Absolute Lymphs (auto) 2.0 10^3/uL (0.5-4.7) 03/08/19 06:49 Absolute Monos (auto) 0.4 10^3/uL (0.1-1.4) 03/08/19 06:49 Absolute Eos (auto) 0.1 10^3/uL (0.0-0.6) 03/08/19 06:49 Absolute Basos (auto) 0.0 10^3/uL (0.0-0.2) 03/08/19 06:49 Seg Neutrophils % 41.6 % (42-78) L 03/08/19 06:49 PT 16.8 SEC (11.4-15.4) H 03/08/19 06:49 INR 1.36 03/08/19 06:49 APTT 37.8 SEC (23.5-35.8) H 03/08/19 06:49 D-Dimer 1.05 ug/mL (0.00-0.50) H 03/07/19 04:50 Sodium 137.9 mmol/L (137-145) 03/08/19 06:49 Potassium 4.3 mmol/L (3.6-5.0) 03/08/19 06:49 Chloride 104 mmol/L (98-107) 03/08/19 06:49 Carbon Dioxide 29 mmol/L (22-30) 03/08/19 06:49 Anion Gap 5 (5-19) 03/08/19 06:49 BUN 10 mg/dL (7-20) 03/08/19 06:49 Creatinine 1.20 mg/dL (0.52-1.25) 03/08/19 06:49 Est GFR ( Amer) > 60 (>60) 03/08/19 06:49 Est GFR (MDRD) Non-Af > 60 (>60) 03/08/19 06:49 Glucose 88 mg/dL (75-110) 03/08/19 06:49 Hemoglobin A1c % 5.9 % (4.7-6.0) 03/08/19 06:49 Calcium 9.3 mg/dL (8.4-10.2) 03/08/19 06:49 Magnesium 2.3 mg/dL (1.6-2.3) 03/08/19 06:49 Total Bilirubin 1.1 mg/dL (0.2-1.3) 03/08/19 06:49 Direct Bilirubin 0.0 mg/dL (0.0-0.4) 03/08/19 06:49 Neonat Total Bilirubin Not Reportable 03/08/19 06:49 Neonat Direct Bilirubin Not Reportable 03/08/19 06:49 Neonat Indirect Bili Not Reportable 03/08/19 06:49 AST 29 U/L (17-59) 03/08/19 06:49 ALT 29 U/L (<50) 03/08/19 06:49 Alkaline Phosphatase 86 U/L (38-126) 03/08/19 06:49 Creatine Kinase 254 U/L (55-170) H 03/08/19 00:58 CK-MB (CK-2) 1.10 ng/mL (<4.55) 03/08/19 00:58 Troponin I < 0.012 ng/mL 03/08/19 00:58 NT-Pro-B Natriuret Pep 25 pg/mL (<125) 03/08/19 06:49 Total Protein 6.3 g/dL (6.3-8.2) 03/08/19 06:49 Albumin 3.5 g/dL (3.5-5.0) 03/08/19 06:49 Triglycerides 124 mg/dL (<150) 03/08/19 06:49 Cholesterol 141.49 mg/dL (0-200) 03/08/19 06:49 LDL Cholesterol Direct 96 mg/dL (<100) 03/08/19 06:49 VLDL Cholesterol 25.0 mg/dL (10-31) 03/08/19 06:49 HDL Cholesterol 27 mg/dL (>40) L 03/08/19 06:49 TSH 1.03 uIU/mL (0.47-4.68) 03/08/19 06:49 Urine Color YELLOW 03/09/19 06:30 Urine Appearance CLEAR 03/09/19 06:30 Urine pH 5.0 (5.0-9.0) 03/09/19 06:30 Ur Specific [place] 1.016 03/09/19 06:30 Urine Protein NEGATIVE mg/dL (NEGATIVE) 03/09/19 06:30 Urine Glucose (UA) NEGATIVE mg/dL (NEGATIVE) 03/09/19 06:30 Urine Ketones NEGATIVE mg/dL (NEGATIVE) 03/09/19 06:30 Urine Blood NEGATIVE (NEGATIVE) 03/09/19 06:30 Urine Nitrite NEGATIVE (NEGATIVE) 03/09/19 06:30 Urine Bilirubin NEGATIVE (NEGATIVE) 03/09/19 06:30 Urine Urobilinogen NEGATIVE mg/dL (<2.0) 03/09/19 06:30 Ur Leukocyte Esterase NEGATIVE (NEGATIVE) 03/09/19 06:30 Urine WBC (Auto) 2 /HPF 03/09/19 06:30 Urine RBC (Auto) 0 /HPF 03/09/19 06:30 Urine Bacteria (Auto) 1+ /HPF 03/09/19 06:30 Squamous Epi Cells Auto <1 /HPF 03/07/19 08:05 Urine Mucus (Auto) FEW /LPF 03/09/19 06:30 Urine Ascorbic Acid NEGATIVE (NEGATIVE) 03/09/19 06:30 Urine Opiates Screen NEGATIVE 03/07/19 08:05 Urine Methadone Screen NEGATIVE 03/07/19 08:05 Ur Barbiturates Screen NEGATIVE 03/07/19 08:05 Ur Phencyclidine Scrn NEGATIVE 03/07/19 08:05 Ur Amphetamines Screen NEGATIVE 03/07/19 08:05 U Benzodiazepines Scrn NEGATIVE 03/07/19 08:05 Urine Cocaine Screen NEGATIVE 03/07/19 08:05 U Marijuana (THC) Screen NEGATIVE 03/07/19 08:05 Serum Alcohol < 10 mg/dL (NONE DETECTED) 03/07/19 04:50 03/07/19 03/07/19 03/07/19 04:50 13:20 19:21 CK-MB (CK-2) 1.38 1.31 Troponin I < 0.012 < 0.012 < 0.012 NT-Pro-B Natriuret Pep 03/08/19 03/08/19 00:58 06:49 CK-MB (CK-2) 1.10 Troponin I < 0.012 NT-Pro-B Natriuret Pep 25 Impressions: Cervical Spine CT 03/07/19 05:08 IMPRESSION: No acute findings in the cervical spine. Chest X-Ray 03/07/19 05:08 IMPRESSION: No acute cardiopulmonary findings. Head CT 03/07/19 05:08 IMPRESSION: No acute intracranial findings. Chest/Abdomen CTA 03/07/19 09:48 IMPRESSION: Filling defects within segmental branches of the pulmonary arteries to the right and left lower lobes (image 73 of series 3) consistent with acute emboli. Stroke Is this a Stroke Patient?: No Acute Heart Failure - Is this a Heart Failure Patient?: No
== END 2019-03-09 11:20 | disposition home or self-care (01) ==
LOC: ER 03:59 → INTOOBSV 11:24 → EH 11:24 → 3N 13:44
PROVIDERS: ADMIT Internal Medicine; ATTEND Internal Medicine
DX: I26.99 Other pulmonary embolism without acute cor pulmonale (principal); I10 Essential (primary) hypertension; E66.01 Morbid (severe) obesity due to excess calories; Z68.41 Body mass index [BMI] 40.0-44.9, adult; F43.10 Post-traumatic stress disorder, unspecified; N17.9 Acute kidney failure, unspecified; R79.89 Other specified abnormal findings of blood chemistry; G89.29 Other chronic pain; M54.9 Dorsalgia, unspecified; R55 Syncope and collapse; S00.81XA Abrasion of other part of head, initial encounter; W19.XXXA Unspecified fall, initial encounter; Y92.003 Bedroom of unspecified non-institutional (private) residence as the place of occurrence of the external cause; M19.90 Unspecified osteoarthritis, unspecified site; R22.0 Localized swelling, mass and lump, head; R51 Headache; M54.2 Cervicalgia; G47.00 Insomnia, unspecified; Z79.899 Other long term (current) drug therapy; Z79.891 Long term (current) use of opiate analgesic; Z82.49 Family history of ischemic heart disease and other diseases of the circulatory system; Z98.1 Arthrodesis status
CPT/HCPCS: 93005; 99285; 96360; 96361; 36415 ×3; 82553 ×2; 80307 ×2; 82550 ×2; 83735; 84443; 85025 ×2; 85027; 85610 ×2; 85730 ×2; 80053 ×2; 81001 ×2; 84484 ×2; 83036; 85379; 80061; 83880; 93970 ×2; 93306; 71045; 70450; 71275; 72125; 93010; G0378 ×2; J1650 ×2; J2270 ×2; J1170; J3490 ×5; J2405 ×2; J7030

== ENCOUNTER 2019-03-13 20:04 | Emergency (ER) | payer OTHER ==
[2019-03-13 20:43] LABS: ABSOLUTE EOSINOPHILS # (AUTO) 0.2 10^3/uL (0.0-0.6); ABSOLUTE LYMPHOCYTES (AUTO) 2.5 10^3/uL (0.5-4.7); ABSOLUTE MONOCYTES (AUTO) 0.5 10^3/uL (0.1-1.4); ABSOLUTE NEUT (AUTO) 2.6 10^3/uL (1.7-8.2); BASOPHILS % (AUTO) 0.3 % (0-2); EOSINOPHILS % (AUTO) 2.6 % (0-6); HEMATOCRIT 37.7 % (37.9-51.0); HEMOGLOBIN 12.6 g/dL (13.5-17.0); LYMPHOCYTES % (AUTO) 43.2 % (13-45); MEAN CORPUSCULAR HEMOGLOBIN 29.4 pg (27.0-33.4); MEAN CORPUSCULAR HGB CONC 33.5 g/dL (32.0-36.0); MEAN CORPUSCULAR VOLUME 88 fl (80-97); MONOCYTES % (AUTO) 8.7 % (3-13); PLATELET COUNT 243 10^3/uL (150-450); RED CELL DISTRIBUTION WIDTH 14.1 % (11.5-14.0); SEGMENTED NEUTROPHILS % (AUTO) 45.2 % (42-78); TOTAL CELLS COUNTED % (AUTO) 100 %; WHITE BLOOD COUNT 5.8 10^3/uL (4.0-10.5)
[2019-03-13 20:56] LABS: ALBUMIN 3.9 g/dL (3.5-5.0); ALKALINE PHOSPHATASE 100 U/L (38-126); ANION GAP 7 (5-19); ASPARTATE AMINO TRANSFERASE 47 U/L (17-59); BILIRUBIN,TOTAL 0.8 mg/dL (0.2-1.3); BLOOD UREA NITROGEN 11 mg/dL (7-20); CALCIUM 9.1 mg/dL (8.4-10.2); CARBON DIOXIDE 31 mmol/L (22-30); CHLORIDE 100 mmol/L (98-107); CREATINE KINASE 215 U/L (55-170); GLUCOSE 90 mg/dL (75-110); POTASSIUM 4.1 mmol/L (3.6-5.0); TOTAL PROTEIN 6.8 g/dL (6.3-8.2)
[2019-03-13] MEDS ORDERED: MORPHINE SULFATE 10 MG/ML INJ IV ONE (20:59)
[2019-03-13] MEDS ORDERED: LORAZEPAM INJ 2 MG/1 ML VIAL IV ONE (20:59)
[2019-03-13 21:07] LABS: CREATINE KINASE MB 1.11 ng/mL (<4.55)
[2019-03-13 21:09] LABS: TROPONIN I < 0.012 ng/mL
--- NOTE | 2019-03-13 21:09 | RADIOLOGY REPORT (SQ) ---
EXAM DESCRIPTION: X-RAY CHEST ONE VIEW CLINICAL HISTORY: 43 years, Male, chest tightness, SOB COMPARISON: 03/07/2019 FINDINGS: Portable upright chest at 2041 hours on 03/13/2019. EKG leads overlie the chest. The lungs are adequately expanded and clear. The costophrenic angles are sharp. The cardiac silhouette, hilar regions, trachea, soft tissues and bony structures are unremarkable, aside from costochondral calcifications.. IMPRESSION: No acute cardiopulmonary disease.
[2019-03-13 21:47] LABS: APPEARANCE,URINE CLEAR; BILIRUBIN,URINE NEGATIVE (NEGATIVE); COLOR,URINE YELLOW; GLUCOSE, URINE NEGATIVE (NEGATIVE); KETONES,URINE NEGATIVE (NEGATIVE); LEUKOCYTE ESTERASE,URINE TRACE (NEGATIVE); NITRITE,URINE NEGATIVE (NEGATIVE); PROTEIN,URINE 30 mg/dL (NEGATIVE); URINE SPECIFIC GRAVITY 1.024
--- NOTE | 2019-03-13 21:52 | ER Document Report ---
Entered by JACKY ZUNIGA SCRIBE 03/13/192044 Acting as scribe for:MIGUELITO VALENZUELA IV, MD ED Respiratory Problem - General Chief Complaint: Breathing Difficulty Stated Complaint: DIFFICULTY BREATHING [facility] [[facility] - Follow up tomorrow Mode of Arrival: Medic Information source: Patient Notes: This 43 year old male patient presents to the emergency department today with complaints of shortness of breath. Patient was seen and admitted here for shortness of breath on 03/07 and was found to have a pulmonary embolism. Patient was discharged home on 03/09 on Eloquis and he has not missed any dosages of this since discharge. Patient reports that today he became very short of breath while sitting down and watching tv today prior to arrival, he got up to do something and was also very lightheaded. Patient complains of some nausea as well as "feeling like he was going to pass out". TRAVEL OUTSIDE OF THE [place] IN LAST 30 DAYS: No - Related Data Allergies/Adverse Reactions: No Known Drug Allergies Allergy (Verified 07/21/18 12:52) bee stings Allergy (Uncoded 07/21/18 12:52) Home Medications: Eliquis, lisinopril, oxycodone, seroquel, phenergan Past Medical History - General Information source: Patient - Social History Smoking Status: Never Smoker Cigarette use (# per day): No Frequency of alcohol use: None Drug Abuse: None Lives with: Family Family History: Reviewed & Not Pertinent, CAD, Other - Kidney stones Patient has suicidal ideation: No Patient has homicidal ideation: No - Past Medical History Cardiac Medical History: Reports: Hx Hypertension - ON MEDS Pulmonary Medical History: Reports: Hx Asthma - CHILD- NO MEDS CURRENTLY Neurological Medical History: Reports: Hx Migraine Endocrine Medical History: Renal/ Medical History: Reports: Hx Kidney Stones - H/O, Hx Renal Insufficiency Musculoskeletal Medical History: Reports Hx Arthritis Psychiatric Medical History: Reports: Hx Attention Deficit Hyperactivity Disorder, Hx Post Traumatic Stress Disorder - & ANXIETY Traumatic Medical History: Reports: Hx Fractures - 4X L ANKLE,L TIB/FIB, R ANKLE, L ARM, 3X R ARM, R FINGER Past Surgical History: Reports: Hx Orthopedic Surgery - left knee X3, right knee, bilateral carpal tunnel, Other - Patient has cervical and surgery, left knee repair and right knee repair. - Immunizations Hx Diphtheria, Pertussis, Tetanus Vaccination: Yes Review of Systems - Review of Systems Constitutional: No symptoms reported EENT: No symptoms reported Cardiovascular: See HPI, Dizziness Respiratory: See HPI, Short of breath Gastrointestinal: See HPI, Nausea Genitourinary: No symptoms reported Male Genitourinary: No symptoms reported Musculoskeletal: No symptoms reported Skin: No symptoms reported Hematologic/Lymphatic: No symptoms reported Neurological/Psychological: No symptoms reported -: Yes All other systems reviewed and negative Physical Exam - Vital signs Vitals: Resp Pulse Ox 13 99 03/13/19 20:09 03/13/19 20:09 - Notes Notes: Physical Exam: General: Alert, appears well. HEENT: Normocephalic. Atraumatic. PERRL. Extraocular movements intact. Oropharynx clear. Neck: Supple. Non-tender. Respiratory: No respiratory distress. Clear and equal breath sounds bilaterally. Cardiovascular: Regular rate and rhythm. Abdominal: Normal Inspection. Non-tender. No distension. Normal Bowel Sounds. Back: No gross abnormalities. Extremities: Moves all four extremities. Upper extremities: Normal inspection. Normal ROM. Lower extremities: Normal inspection. No edema. Normal ROM. Neurological: Normal cognition. AAOx4. Normal speech. Psychological: Anxious Skin: Warm. Dry. Normal color. Course - Re-evaluation Re-evalutation: 03/14/19 00:31 Patient states he is feeling better at this time after Xopenex nebulizer t reatment. Results of ED MSE discussed with patient and patient's spouse. All questions were answered. Emergency signs and symptoms, reasons to return to the emergency department discussed with patient and patient's spouse. - Vital Signs Vital signs: Temp Pulse Resp BP Pulse Ox 98.1 F 19 133/99 H 96 03/13/19 20:28 03/13/19 22:02 03/13/19 22:02 03/13/19 22:02 - Laboratory Result Diagrams: 03/13/19 20:15 03/13/19 20:15 Laboratory results interpreted by me: 03/13/19 03/13/19 03/13/19 20:15 20:15 21:25 RBC 4.30 L Hgb 12.6 L Hct 37.7 L RDW 14.1 H ABG HCO3 ABG Total CO2 Carbon Dioxide 31 H Creatine Kinase 215 H Urine Protein 30 H Urine Urobilinogen 2.0 H Ur Leukocyte Esterase TRACE H Urine Ascorbic Acid 40 H 03/13/19 21:48 RBC Hgb Hct RDW ABG HCO3 26.1 H ABG Total CO2 27.4 H Carbon Dioxide Creatine Kinase Urine Protein Urine Urobilinogen Ur Leukocyte Esterase Urine Ascorbic Acid - Diagnostic Test Radiology reviewed: Reports reviewed - EKG Interpretation by Me Additional EKG results interpreted by me: 03/13/19 23:17 EKG obtained on 03/13/2019 was interpreted by this MD. Findings: Normal sinus rhythm, rate 70, normal axis, P waves preceding QRS complexes, QRS complexes appear narrow, there are no obvious ST segment patterns of elevation or depression to suggest acute myocardial ischemia or infarction. Impression normal sinus rhythm with nonspecific ST segments. Discharge - Discharge Clinical Impression: Dyspnea Qualifiers: Dyspnea type: unspecified Qualified Code(s): R06.00 - Dyspnea, unspecified Condition: Good Disposition: HOME, SELF-CARE Additional Instructions: Return to the Emergency Department without delay if any worse. HOME CARE INSTRUCTIONS & INFORMATION: Thank you for choosing us for your medical needs. We hope you're satisfied with the care you received. After you leave, you must properly care for your problem and, at the same time, observe its progress. Any condition can change. Some illnesses can change rapidly over hours or days. If your condition worsens, return to the Emergency Department or see your physician promptly. ABOUT YOUR X-RAYS AND EKG'S: If you had an EKG or X-rays taken, they have been read by the Emergency Physician. The X-rays and EKG's will also be read by a Radiologist or [employer] within 24 hours. If discrepancies are noted, you will be notified by telephone. Please be certain the ED has a correct telephone number & address where you can be reached. Also, realize that some fractures or abnormalities do not show up on initial X-rays. If your symptoms continue, see your physician. ABOUT YOUR LABORATORY TEST: If you had laboratory tests, the results have been reviewed by the Emergency Physician. Some test results (for example cultures) may not be available for several days. You will be contacted if any test result shows you need additional treatment. Please be certain the ED has a correct telephone number and address where you can be reached. ABOUT YOUR MEDICATIONS: You will receive instructions on how to take your medicine on the prescription label you receive. Additional information may be provided by the Pharmacy. If you have questions afterwards, call the ED for clarification or further instructions. Some prescribed medications may cause drowsiness. Do not perform tasks such as driving a car or operating machinery without consulting your Pharmacist. If you feel you need a refill of pain medication, your condition will need re-evaluation. Please do not call for a refill of any medication. ABOUT YOUR SIGNATURE: Signature of this document acknowledges to followin. Understanding that you received emergency treatment and that you may be re leased before al medical problems are known or treated. Please be certain the ED has a correct phone number & address where you can be reached. 2. Acknowledgement that you will arrange for follow-up care as recommended. 3. Authorization for the Emergency Physician to provide information to your follow-up Physician in order to maximize your care. AT ANY TIME, IF YOUR SYMPTOMS CHANGE SIGNIFICANTLY OR WORSEN OR YOU DEVELOP NEW SYMPTOMS, RETURN TO THE EMERGENCY DEPARTMENT IMMEDIATELY FOR RE-EVALUATION. OUR GOAL IS TO PROVIDE EXCELLENT MEDICAL CARE! WE HOPE THAT WE HAVE MET YOUR EXPECTATIONS DURING YOUR EMERGENCY DEPARTMENT VISIT AND THAT YOU FEEL YOU HAVE RECEIVED EXCELLENT CARE! Dyspnea, Nonspecific You were evaluated for shortness of breath, or dyspnea. Dyspnea has many causes, and some are more serious than others. Sometimes it's impossible to diagnose the cause of dyspnea with the tests that are available on an emergency basis. Based on our evaluation today, you do not need hospitalization now. We found no evidence of pneumonia, collapsed lung, blood clots in the lung, tumors, or heart failure. Causes of non-specific dyspnea can include asthma or bronchospasm, hyperventilation, emotional distress, heart disease, emphysema, fibrosis of the lung, and stiffness of the chest wall. In healthy individuals with a single episode, it's sometimes reasonable to do nothing but wait to see if the problem occurs again. Additional tests used to evaluate dyspnea can include cardiac stress testing, echocardiography, pulmonary function testing, CAT scan of the chest, bronchoscopy or pulmonary biopsy. Return if shortness of breath persists or worsens, or if you develop chest pain, fever, cough, confusion, or fainting. Prescriptions: Albuterol Sulfate [Ventolin Hfa 8 gm Mdi (1 Mdi/ER Disp)] 2 puff IH Q4HP PRN #1 inhaler PRN Reason: Shortness Of Breath [facility]errals: [facility] [[facility]] - Follow up tomorrow I personally performed the services described in the documentation, reviewed and edited the documentation which was dictated to the scribe in my presence, and it accurately records my words and actions.
--- NOTE | 2019-03-13 22:00 | EKG REPORT ---
SEVERITY:- OTHERWISE NORMAL ECG - LA ABNORMALITY SINUS RHYTHM : Confirmed by: Mina Valdez MD 13-Mar-2019 22:00:16
[2019-03-13 22:08] LABS: ARTERIAL BLOOD BASE EXCESS 1.5 mmol/L; ARTERIAL BLOOD H2CO3 1.23 mmol/L (1.05-1.35); ARTERIAL BLOOD HCO3 26.1 mmol/L (20-24); ARTERIAL BLOOD O2 SATURATION 97.3 % (94-98); ARTERIAL BLOOD PH 7.42 (7.35-7.45); ARTERIAL BLOOD PO2 93.6 mmHg (80-100); ARTERIAL BLOOD TOTAL CO2 27.4 mmol/L (23-27)
[2019-03-13 22:13] LABS: ARTERIAL BLOOD FIO2 ROOM AIR
--- NOTE | 2019-03-13 23:06 | RADIOLOGY REPORT (SQ) ---
EXAM DESCRIPTION: CT CHEST ANGIOGRAPHY WITHOUT THEN WITH IV CONTRAST COMPLETED DATE/TME: 03/13/2019 21:00 CLINICAL HISTORY: 43 years, Male, h/o pe, dyspnea, near syncope COMPARISON: 03/07/2019 CT TECHNIQUE: 603 Images stored on PACS. All CT scanners at this facility use dose modulation, iterative reconstruction, and/or weight based dosing when appropriate to reduce radiation dose to as low as reasonably achievable (ALARA). Axial CTA images with coronal and sagittal MIPS [facility]: Dose Right [facility]: CareDose [facility]: Dose Right [facility]: Teradose 4D [facility]: [employer] LIMITATIONS: None. FINDINGS: Contrast bolus is significantly suboptimal. No large or central pulmonary embolus. Evaluation of distal branches is nondiagnostic. Negative for thoracic aortic aneurysm or dissection. The heart and pericardium are unremarkable. Limited evaluation of the upper abdomen shows post surgical changes in the epigastric region. Osseous structures are grossly intact. No pneumothorax. The visualized airways are patent. The lungs are clear IMPRESSION: Suboptimal contrast bolus. No large or central pulmonary embolus. The lungs are clear TECHNICAL DOCUMENTATION: Quality ID # [id number]: Final reports with documentation of one or more dose reduction techniques (e.g., Automated exposure control, adjustment of the mA and/or kV according to patient size, use of iterative reconstruction technique) copyright 2011 [employer]- All Rights Reserved
[2019-03-13] MEDS ORDERED: APIXABAN 5 MG TABLET PO ONE (23:23)
[2019-03-13] MEDS ORDERED: LEVALBUTEROL HCL NEB 1.25 MG/3 ML AMPUL NEB ONE (23:24)
[2019-03-14 01:04] VITALS: BP 136/72
== END 2019-03-14 01:12 | disposition home or self-care (01) ==
LOC: ER 20:04
DX: I26.99 Other pulmonary embolism without acute cor pulmonale (principal); R06.02 Shortness of breath; R42 Dizziness and giddiness; R11.0 Nausea; I10 Essential (primary) hypertension; Z79.899 Other long term (current) drug therapy; Z79.891 Long term (current) use of opiate analgesic; Z91.030 Bee allergy status
CPT/HCPCS: 93005; 94640; 99285; 96374; 96375; 36415; 82553; 82803; 82550; 85025; 80053; 81001; 84484; 71045; 71275; 93010; J2270; J2060; J3490

== ENCOUNTER 2019-03-31 23:55 | Emergency (ER) | payer OTHER ==
--- NOTE | 2019-04-01 01:01 | ER Document Report ---
ED Medical Screen (RME) - General Chief Complaint: Breathing Difficulty Stated Complaint: CHEST PAIN/SHORTNESS OF BREATH [facility] [[facility]] - Follow up as needed Notes: Patient is a 43-year-old -Italian male with a recent diagnosis/past medical history of PE who is on Coumadin 5 mg p.o. twice daily who reports to the emergency department the night with a worsening shortness of breath. States he is also been experiencing pain in the chest, back and right arm. States it is hard to speak in full sentences because he feels so short of breath. He denies any hemoptysis. I have treated and performed a rapid initial assessment of this patient. A comprehensive ED assessment and evaluation of the patient, analysis of test results and completion of medical decision making process will be conducted by additional ED providers. PHYSICAL EXAMINATION: GENERAL: Well-appearing, well-nourished and in no acute distress. A&Ox4. Answers questions appropriately. TRAVEL OUTSIDE OF THE [place] IN LAST 30 DAYS: No - Related Data Allergies/Adverse Reactions: No Known Drug Allergies Allergy (Verified 04/01/19 00:55) bee stings Allergy (Uncoded 07/21/18 12:52) Home Medications: ELIQUIS. LISINOPRIL. SEROQUEL. OXYCODONE Past Medical History - Social History Frequency of alcohol use: None Drug Abuse: None - Past Medical History Cardiac Medical History: Reports: Hx Hypertension - ON MEDS Denies: Hx Atrial Fibrillation, Hx Congestive Heart Failure, Hx Heart Attack, Hx Hypercholesterolemia Pulmonary Medical History: Reports: Hx Asthma - CHILD- NO MEDS CURRENTLY Denies: Hx Bronchitis, Hx COPD, Hx Pneumonia, Hx Tuberculosis Neurological Medical History: Reports: Hx Migraine. Denies: Hx Cerebrovascular Accident, Hx Seizures, Hx Parkinson's Disease Endocrine Medical History: Denies: Hx Diabetes Mellitus Type 1, Hx Diabetes Mellitus Type 2 Renal/ Medical History: Reports: Hx Kidney Stones - H/O, Hx Renal Insufficiency. Denies: Hx End Stage Renal Disease, Hx Peritoneal Dialysis Malignancy Medical History: Denies Hx Lung Cancer GI Medical History: Denies: Hx Hepatitis Musculoskeltal Medical History: Reports Hx Arthritis Psychiatric Medical History: Reports: Hx Attention Deficit Hyperactivity Disorder, Hx Post Traumatic Stress Disorder - & ANXIETY Denies: Hx Bipolar Disorder, Hx Dementia, Hx Depression, Hx Schizophrenia Traumatic Medical History: Reports: Hx Fractures - 4X L ANKLE,L TIB/FIB, R ANKLE, L ARM, 3X R ARM, R FINGER Infectious Medical History: Denies: Hx Hepatitis Past Surgical History: Reports: Hx Orthopedic Surgery - left knee X3, right knee, bilateral carpal tunnel, Other - Patient has cervical and surgery, left knee repair and right knee repair.. Denies: Hx Appendectomy, Hx Cholecystectomy, Hx Tonsillectomy - Immunizations Hx Diphtheria, Pertussis, Tetanus Vaccination: Yes Physical Exam - Vital signs Vitals: Temp Pulse Resp BP Pulse Ox 97.6 F 85 18 109/60 96 04/01/19 00:19 04/01/19 00:19 04/01/19 00:19 04/01/19 00:19 04/01/19 00:19 Course - Vital Signs Vital signs: Temp Pulse Resp BP Pulse Ox 97.6 F 85 18 109/60 96 04/01/19 00:19 04/01/19 00:19 04/01/19 00:19 04/01/19 00:19 04/01/19 00:19 Doctor's Discharge - Discharge [facility]errals: [facility] [[facility]] - Follow up as needed
[2019-04-01 01:51] LABS: ABSOLUTE BASOPHILS # (AUTO) 0.1 10^3/uL (0.0-0.2); ABSOLUTE EOSINOPHILS # (AUTO) 0.1 10^3/uL (0.0-0.6); ABSOLUTE LYMPHOCYTES (AUTO) 2.3 10^3/uL (0.5-4.7); ABSOLUTE MONOCYTES (AUTO) 0.5 10^3/uL (0.1-1.4); ABSOLUTE NEUT (AUTO) 3.6 10^3/uL (1.7-8.2); BASOPHILS % (AUTO) 0.8 % (0-2); EOSINOPHILS % (AUTO) 2.2 % (0-6); HEMATOCRIT 38.1 % (37.9-51.0); LYMPHOCYTES % (AUTO) 34.9 % (13-45); MEAN CORPUSCULAR HGB CONC 34.2 g/dL (32.0-36.0); MEAN CORPUSCULAR VOLUME 88 fl (80-97); MONOCYTES % (AUTO) 7.3 % (3-13); PLATELET COUNT 294 10^3/uL (150-450); RED BLOOD COUNT 4.34 10^6/uL (4.35-5.55); RED CELL DISTRIBUTION WIDTH 14.2 % (11.5-14.0); SEGMENTED NEUTROPHILS % (AUTO) 54.8 % (42-78); TOTAL CELLS COUNTED % (AUTO) 100 %; WHITE BLOOD COUNT 6.6 10^3/uL (4.0-10.5)
[2019-04-01 02:00] LABS: INTERNATIONAL RATION (INR) 1.56; PROTHROMBIN TIME 18.8 SEC (11.4-15.4)
[2019-04-01 02:01] LABS: PARTIAL THROMBOPLASTIN TIME 33.2 SEC (23.5-35.8)
[2019-04-01 02:11] LABS: ALBUMIN 4.5 g/dL (3.5-5.0); ALKALINE PHOSPHATASE 88 U/L (38-126); ANION GAP 7 (5-19); ASPARTATE AMINO TRANSFERASE 42 U/L (17-59); BILIRUBIN,TOTAL 0.8 mg/dL (0.2-1.3); BLOOD UREA NITROGEN 18 mg/dL (7-20); CALCIUM 9.8 mg/dL (8.4-10.2); CARBON DIOXIDE 31 mmol/L (22-30); CHLORIDE 99 mmol/L (98-107); GLUCOSE 111 mg/dL (75-110); POTASSIUM 4.9 mmol/L (3.6-5.0); TOTAL PROTEIN 7.4 g/dL (6.3-8.2)
--- NOTE | 2019-04-01 02:48 | RADIOLOGY REPORT (SQ) ---
CT angiogram chest with contrast on 04/01/2019 1:59 AM CLINICAL INDICATION: Shortness of breath, history of pulmonary embolus TECHNIQUE: Multiple axial images are obtained throughout the chest following the administration of IV contrast. 100 mL of Omnipaque 350 contrast was administered intravenously. Computer generated 3D reconstructions/MIPS were performed. This exam was performed according to our departmental dose-optimization program, which includes automated exposure control, adjustment of the mA and/or kV according to patient size and/or use of iterative reconstruction technique. Total DLP is 922.45 mGy*cm. COMPARISON: 03/13/2019 FINDINGS: There is no thoracic aortic aneurysm or dissection. The patient is status post gastric sleeve surgery. Limited visualized upper abdomen is otherwise unremarkable. There is no pleural or pericardial effusion. There is no thoracic adenopathy. There are no filling defects within the pulmonary arteries to suggest pulmonary embolus. The lungs are clear. Mild bilateral gynecomastia is noted. Degenerative changes are noted in the spine. IMPRESSION: 1. No evidence of pulmonary embolus. 2. No acute abnormality.
[2019-04-01] MEDS ORDERED: PREDNISONE 20 MG TABLET PO ONE (02:50)
[2019-04-01] MEDS ORDERED: IPRATROPIUM/ALBUTEROL 0.5-2.5 MG/3 ML AMPUL NEB ONE (02:50)
--- NOTE | 2019-04-01 02:58 | ER Document Report ---
ED Respiratory Problem - General Chief Complaint: Breathing Difficulty Stated Complaint: CHEST PAIN/SHORTNESS OF BREATH Time Seen by Provider: 04/01/19 02:24 Primary Care Provider: CHRISTIAN,NICOLE [Primary Care Provider] - Follow up as needed Notes: CHIEF COMPLAINT: Shortness of breath HPI: 43-year-old male who was diagnosed 6 weeks ago with a PE presenting for shortness of breath. States he has had intermittent episodes of shortness of breath since his diagnosis, is taking Eliquis consistently. Today he felt like his shortness of breath was slightly worse. No chest pain no pleuritic pain no fever. He did try using his albuterol nebulizer at home without resolution of his shortness of breath so came to the emergency department. ROS: See HPI - all other systems were reviewed and are otherwise negative Constitutional: no fever Eyes: no drainage, no blurred vision ENT: no runny nose, no sore throat Cardiovascular: no chest pain Resp: + SOB, no cough GI: no vomiting, no diarrhea, no abdominal pain : no dysuria Integumentary: no rash Allergy: no hives Musculoskeletal: no extremity pain or swelling Neurological: no numbness/tingling, no weakness MEDICATIONS: I agree with the patient medications as charted by the RN. ALLERGIES: I agree with the allergies as charted by the RN. PAST MEDICAL HISTORY/PAST SURGICAL HISTORY: Reviewed and agree as charted by RN. SOCIAL HISTORY: Reviewed and agree as charted by RN. FAMILY HISTORY: No significant familial comorbid conditions directly related to patient complaint EXAM: Reviewed vital signs as charted by RN. CONSTITUTIONAL: Alert and oriented and responds appropriately to questions. Well-appearing; well-nourished, no acute distress HEAD: Normocephalic; atraumatic EYES: PERRL; Conjunctivae clear, sclerae non-icteric ENT: normal nose; no rhinorrhea; moist mucous membranes; pharynx without lesions noted, no uvula edema or deviation, no tonsillar hypertrophy, phonation normal NECK: Supple without meningismus; non-tender; no cervical lymphadenopathy, no masses CARD: RRR; no murmurs, no clicks, no rubs, no gallops; symmetric distal pulses RESP: Normal chest excursion without splinting or tachypnea; breath sounds clear and equal bilaterally; no wheezes, no rhonchi, no rales, pulse oximetry 97% on room air not hypoxic. Does not become dyspneic with speaking ABD/GI: Normal bowel sounds; non-distended; soft, non-tender, no rebound, no gua rding; no palpable organomegaly or masses. BACK: The back appears normal and is non-tender to palpation, there is no CVA tenderness EXT: Normal ROM in all joints; non-tender to palpation; no cyanosis, no effusions, no edema SKIN: Normal color for age and race; warm; dry; good turgor; no acute lesions noted NEURO: Moves all extremities equally; Motor and sensory function intact PSYCH: The patient's mood and manner are appropriate. Grooming and personal hygiene are appropriate. MDM: 43-year-old male who is on blood thinners currently for pulmonary embolus presenting for shortness of breath. He does not appear to be in any distress at this time his pulse oximetry at rest in the bed is 98%. His lung sounds are clear to auscultation. Lab work and CT imaging were ordered from triage pro cess, no significant findings. Troponin was normal. CT of the chest for pulmonary embolus does not show evidence of pulmonary embolus at this time. Will give patient breathing treatment and steroids this may be inflammatory or upper respiratory. No infiltrate noted on CT imaging. If patient feels better after breathing treatment and steroids will discharge home on steroids to follow-up with PCP, low suspicion for ACS. TRAVEL OUTSIDE OF THE [place] IN LAST 30 DAYS: No - Related Data Allergies/Adverse Reactions: No Known Drug Allergies Allergy (Verified 04/01/19 00:55) bee stings Allergy (Uncoded 07/21/18 12:52) Home Medications: ELIQUIS. LISINOPRIL. SEROQUEL. OXYCODONE Past Medical History - Social History Smoking Status: Never Smoker Frequency of alcohol use: None Drug Abuse: None Family History: Reviewed & Not Pertinent, CAD, Other - Kidney stones Patient has suicidal ideation: No Patient has homicidal ideation: No - Past Medical History Cardiac Medical History: Reports: Hx Hypertension - ON MEDS Denies: Hx Atrial Fibrillation, Hx Congestive Heart Failure, Hx Heart Attack, Hx Hypercholesterolemia Pulmonary Medical History: Reports: Hx Asthma - CHILD- NO MEDS CURRENTLY Denies: Hx Bronchitis, Hx COPD, Hx Pneumonia, Hx Tuberculosis Neurological Medical History: Reports: Hx Migraine. Denies: Hx Cerebrovascular Accident, Hx Seizures, Hx Parkinson's Disease Endocrine Medical History: Denies: Hx Diabetes Mellitus Type 1, Hx Diabetes Mellitus Type 2 Renal/ Medical History: Reports: Hx Kidney Stones - H/O, Hx Renal Insufficiency. Denies: Hx End Stage Renal Disease, Hx Peritoneal Dialysis Malignancy Medical History: Denies Hx Lung Cancer GI Medical History: Denies: Hx Hepatitis Musculoskeletal Medical History: Reports Hx Arthritis Psychiatric Medical History: Reports: Hx Attention Deficit Hyperactivity Disorder, Hx Post Traumatic Stress Disorder - & ANXIETY Denies: Hx Bipolar Disorder, Hx Dementia, Hx Depression, Hx Schizophrenia Traumatic Medical History: Reports: Hx Fractures - 4X L ANKLE,L TIB/FIB, R A NKLE, L ARM, 3X R ARM, R FINGER Infectious Medical History: Denies: Hx Hepatitis Past Surgical History: Reports: Hx Orthopedic Surgery - left knee X3, right knee, bilateral carpal tunnel, Other - Patient has cervical and surgery, left knee repair and right knee repair.. Denies: Hx Appendectomy, Hx Cholecystectomy, Hx Tonsillectomy - Immunizations Hx Diphtheria, Pertussis, Tetanus Vaccination: Yes Physical Exam - Vital signs Vitals: Temp Pulse Resp BP Pulse Ox 97.6 F 85 18 109/60 96 04/01/19 00:19 04/01/19 00:19 04/01/19 00:19 04/01/19 00:19 04/01/19 00:19 Course - Vital Signs Vital signs: Temp Pulse Resp BP Pulse Ox 97.6 F 85 18 109/60 96 04/01/19 00:19 04/01/19 00:19 04/01/19 00:19 04/01/19 00:19 04/01/19 00:19 - Laboratory Result Diagrams: 04/01/19 01:25 04/01/19 01:25 Laboratory results interpreted by me: 04/01/19 04/01/19 04/01/19 01:25 01:25 01:25 RBC 4.34 L Hgb 13.0 L RDW 14.2 H PT 18.8 H Carbon Dioxide 31 H Creatinine 1.56 H Est GFR ( Amer) 59 L Est GFR (MDRD) Non-Af 49 L Glucose 111 H Discharge - Discharge Clinical Impression: Dyspnea Qualifiers: Dyspnea type: shortness of breath Qualified Code(s): R06.02 - Shortness of breath; R06.00 - Dyspnea, unspecified; R06.01 - Orthopnea Condition: Stable Disposition: HOME, SELF-CARE Additional Instructions: Take the steroids as prescribed. Continue to use your albuterol inhaler at home every 4 hours. Follow-up with your primary care provider for further evaluation and treatment call for appointment. Continue the Eliquis as previously prescribed. CT imaging today did not show evidence of a blood clot in the lung Prescriptions: Prednisone [Deltasone 20 mg Tablet] 2 tab PO DAILY 5 Days #10 tablet [facility]errals: [facility] [[facility]] - Follow up as needed
[2019-04-01 03:14] VITALS: BP 126/78
--- NOTE | 2019-04-01 06:13 | EKG REPORT ---
SEVERITY:- BORDERLINE ECG - SINUS RHYTHM PROBABLE LEFT ATRIAL ABNORMALITY : Confirmed by: Mina Valdez MD 01-Apr-2019 06:13:16
== END 2019-04-01 03:23 | disposition home or self-care (01) ==
LOC: ER 23:55
DX: I26.99 Other pulmonary embolism without acute cor pulmonale (principal); Z79.01 Long term (current) use of anticoagulants; R06.02 Shortness of breath; R06.01 Orthopnea; I10 Essential (primary) hypertension; Z91.030 Bee allergy status; Z79.899 Other long term (current) drug therapy; Z79.891 Long term (current) use of opiate analgesic
CPT/HCPCS: 93005; 94640; 99285; 36415; 85025; 85610; 85730; 80053; 84484; 71275; 93010; J7512; J7620

== ENCOUNTER 2019-04-13 13:16 | Emergency (ER) | payer OTHER ==
[2019-04-13 14:09] LABS: ABSOLUTE EOSINOPHILS # (AUTO) 0.1 10^3/uL (0.0-0.6); ABSOLUTE LYMPHOCYTES (AUTO) 1.7 10^3/uL (0.5-4.7); ABSOLUTE MONOCYTES (AUTO) 0.4 10^3/uL (0.1-1.4); ABSOLUTE NEUT (AUTO) 2.7 10^3/uL (1.7-8.2); BASOPHILS % (AUTO) 0.5 % (0-2); HEMATOCRIT 33.9 % (37.9-51.0); HEMOGLOBIN 12.1 g/dL (13.5-17.0); LYMPHOCYTES % (AUTO) 35.1 % (13-45); MEAN CORPUSCULAR HEMOGLOBIN 30.7 pg (27.0-33.4); MEAN CORPUSCULAR HGB CONC 35.6 g/dL (32.0-36.0); MEAN CORPUSCULAR VOLUME 86 fl (80-97); MONOCYTES % (AUTO) 8.4 % (3-13); PLATELET COUNT 246 10^3/uL (150-450); RED BLOOD COUNT 3.93 10^6/uL (4.35-5.55); RED CELL DISTRIBUTION WIDTH 14.6 % (11.5-14.0); TOTAL CELLS COUNTED % (AUTO) 100 %; WHITE BLOOD COUNT 4.9 10^3/uL (4.0-10.5)
[2019-04-13 14:12] LABS: APPEARANCE,URINE CLEAR; BILIRUBIN,URINE NEGATIVE (NEGATIVE); COLOR,URINE STRAW; GLUCOSE, URINE NEGATIVE (NEGATIVE); KETONES,URINE NEGATIVE (NEGATIVE); LEUKOCYTE ESTERASE,URINE NEGATIVE (NEGATIVE); NITRITE,URINE NEGATIVE (NEGATIVE); PROTEIN,URINE NEGATIVE (NEGATIVE); URINE SPECIFIC GRAVITY 1.003; UROBILINOGEN,URINE NEGATIVE mg/dL (<2.0)
[2019-04-13 14:14] LABS: ALBUMIN 4.2 g/dL (3.5-5.0); ALCOHOL 41 mg/dL (NONE DETECTED); ALKALINE PHOSPHATASE 91 U/L (38-126); ANION GAP 10 (5-19); ASPARTATE AMINO TRANSFERASE 38 U/L (17-59); BLOOD UREA NITROGEN 11 mg/dL (7-20); CALCIUM 9.5 mg/dL (8.4-10.2); CARBON DIOXIDE 25 mmol/L (22-30); CHLORIDE 104 mmol/L (98-107); GLUCOSE 76 mg/dL (75-110); POTASSIUM 4.3 mmol/L (3.6-5.0)
[2019-04-13 15:39] LABS: URINE AMPHETAMINES SCREEN NEGATIVE; URINE BENZODIAZEPINES SCREEN NEGATIVE; URINE COCAINE SCREEN NEGATIVE; URINE MARIJUANA (THC) SCREEN NEGATIVE; URINE METHADONE SCREEN NEGATIVE; URINE PHENCYCLIDINE SCREEN NEGATIVE
[2019-04-13 15:52] LABS: URINE BARBITURATES SCREEN UNCONFIRMED POSITIVE
[2019-04-13] MEDS ORDERED: MORPHINE SULFATE 10 MG/ML INJ IV ONE (16:19)
[2019-04-13] MEDS ORDERED: ONDANSETRON HCL INJ/PF 4 MG/2 ML SDV IV ONE (16:19)
--- NOTE | 2019-04-13 16:21 | ER Document Report ---
ED Medical Screen (RME) - General Chief Complaint: Probable Seizure Stated Complaint: POSSIBLE SEIZURE Primary Care Provider: [facility] [[facility]] - Follow up as needed TRAVEL OUTSIDE OF THE [place] IN LAST 30 DAYS: No - HPI Notes: 04/13/19 16:19 I did a brief medical screening exam on the patient. He is brought in by family due to having seizures today. He states he does not remember the incident family states he had approximately 4 tonic-clonic seizures today each lasting roughly 1 minute. He states he suffers from chronic pain and has not had his Percocet today and would like some IV pain medicine. He did recently have gastric bypass and he states since that time he has been having chronic pain throughout his body. No previous history of any type of seizures. No recent infectious symptoms. No fevers. No recent trauma. Family states he has been acting confused for several days. I am going to order laboratories and a head CT scan. I also give the patient some IV pain medication and nausea medication. On physical exam patient's heart is regular rate and rhythm, lungs are clear to auscultation, cranial nerves II through XII are intact, cerebellar signs are absent in the upper extremities. - Related Data Allergies/Adverse Reactions: No Known Drug Allergies Allergy (Verified 04/13/19 13:31) bee stings Allergy (Uncoded 04/13/19 13:31) Past Medical History - Past Medical History Cardiac Medical History: Reports: Hx Hypertension Denies: Hx Atrial Fibrillation, Hx Congestive Heart Failure, Hx Heart Attack, Hx Hypercholesterolemia Pulmonary Medical History: Reports: Hx Asthma Denies: Hx Bronchitis, Hx COPD, Hx Pneumonia, Hx Tuberculosis Neurological Medical History: Reports: Hx Migraine. Denies: Hx Cerebrovascular Accident, Hx Seizures, Hx Parkinson's Disease Endocrine Medical History: Denies: Hx Diabetes Mellitus Type 1, Hx Diabetes Mellitus Type 2 Renal/ Medical History: Reports: Hx Kidney Stones, Hx Renal Insufficiency. Denies: Hx End Stage Renal Disease, Hx Peritoneal Dialysis Malignancy Medical History: Denies Hx Lung Cancer GI Medical History: Denies: Hx Hepatitis Musculoskeltal Medical History: Reports Hx Arthritis Psychiatric Medical History: Reports: Hx Attention Deficit Hyperactivity Disorder, Hx Post Traumatic Stress Disorder - & ANXIETY Denies: Hx Bipolar Disorder, Hx Dementia, Hx Depression, Hx Schizophrenia Traumatic Medical History: Reports: Hx Fractures - 4X L ANKLE,L TIB/FIB, R ANKLE , L ARM, 3X R ARM, R FINGER Infectious Medical History: Denies: Hx Hepatitis Past Surgical History: Reports: Hx Orthopedic Surgery - left knee X3, right knee, bilateral carpal tunnel, Other - Patient has cervical and surgery, left knee repair and right knee repair.. Denies: Hx Appendectomy, Hx Cholecystectomy, Hx Tonsillectomy - Immunizations Hx Diphtheria, Pertussis, Tetanus Vaccination: Yes Physical Exam - Vital signs Vitals: Temp Pulse Resp BP Pulse Ox 98.9 F 80 14 117/76 100 04/13/19 13:34 04/13/19 13:34 04/13/19 13:34 04/13/19 13:34 04/13/19 13:34 Course - Vital Signs Vital signs: Temp Pulse Resp BP Pulse Ox 98.9 F 80 20 117/76 100 04/13/19 13:34 04/13/19 13:34 04/13/19 16:00 04/13/19 13:34 04/13/19 16:00 - Laboratory Result Diagrams: 04/13/19 13:35 04/13/19 13:35 Laboratory results interpreted by me: 04/13/19 13:35 RBC 3.93 L Hgb 12.1 L Hct 33.9 L RDW 14.6 H Doctor's Discharge - Discharge Referrals: [facility] [[facility]] - Follow up as needed
--- NOTE | 2019-04-13 16:51 | RADIOLOGY REPORT (SQ) ---
EXAM DESCRIPTION: CT HEAD WITHOUT COMPLETED DATE/TIME: 04/13/2019 4:40 pm REASON FOR STUDY: seizure COMPARISON: 03/07/2019. TECHNIQUE: Axial images acquired through the brain without intravenous contrast. Images reviewed wi th bone, brain and subdural windows. Additional sagittal and coronal reconstructions were generated. Images stored on PACS. All CT scanners at this facility use dose modulation, iterative reconstruction, and/or weight based d osing when appropriate to reduce radiation dose to as low as reasonably achievable (ALARA). [facility]: Dose Right [facility]: CareDose [facility]: Dose Right [facility]: Teradose 4D [facility]: Smart UltiZen RADIATION DOSE: CT Rad equipment meets quality standard of care and radiation dose reduction techniq ues were employed. CTDIvol: 53.2 mGy. DLP: 991 mGy-cm. mGy. LIMITATIONS: None. FINDINGS: VENTRICLES: Normal size and contour. CEREBRUM: No masses. No hemorrhage. No midline shift. No evidence for acute infarction. Normal gra y/white matter differentiation. No areas of low density in the white matter. CEREBELLUM: No masses. No hemorrhage. No alteration of density. No evidence for acute infarction. EXTRAAXIAL SPACES: No fluid collections. No masses. ORBITS AND GLOBE: No intra- or extraconal masses. Normal contour of globe without masses. CALVARIUM: No fracture. PARANASAL SINUSES: No fluid or mucosal thickening. SOFT TISSUES: No mass or hematoma. OTHER: No other significant finding. IMPRESSION: NORMAL BRAIN CT WITHOUT CONTRAST. EVIDENCE OF ACUTE STROKE: NO. COMMENT: Quality ID # [id number]: Final reports with documentation of one or more dose reduction techniques (e.g., Automated exposure control, adjustment of the mA and/or kV according to patient size, use of iterative reconstruction technique) TECHNICAL DOCUMENTATION: JOB ID: [id number] 2010 [employer]- All Rights Reserved Reading location - IP/workstation name: [email or web address]
[2019-04-13] MEDS ORDERED: OXYCODONE-ACETAMINOPHEN 5-325 MG TABLET PO ONE (22:56)
--- NOTE | 2019-04-13 23:18 | ER Document Report ---
ED General - General Chief Complaint: Probable Seizure Stated Complaint: POSSIBLE SEIZURE Time Seen by Provider: 04/13/19 23:00 Primary Care Provider: CHRISTIAN,NICOLE [Primary Care Provider] - Follow up as needed TRAVEL OUTSIDE OF THE [place] IN LAST 30 DAYS: No - HPI Notes: This is a 43-year-old male seen today for evaluation of possible seizures. This gentleman has chronic pain syndrome and is on a 100% disability [facility] noting that he has had previous back surgery and is scheduled for knee replacement surgery. He chronically takes Percocet 5 2 tablets 4 times daily. He says he has not taken any of the medication since last night because he is babysitting his 4-year-old daughter along and was afraid the medicine would impair his sensorium. His sister came over the house and said that she witnessed him momentarily lose conscious and has some generalized jerking movements for 1 minute at a time with 4 such episodes observed. There was no urinary incontinence. There was no fall or injury. We note that the patient is currently on Eliquis because of a diagnosis of pulmonary embolus last month. He says he is compliant with medication. He denies any recent fall or trauma. Patient denies alcohol consumption. He denies any use of illicit drugs. - Related Data Allergies/Adverse Reactions: No Known Drug Allergies Allergy (Verified 04/13/19 13:31) bee stings Allergy (Uncoded 04/13/19 13:31) Past Medical History - General Information source: Patient, Relative - Social History Smoking Status: Never Smoker Family History: Reviewed & Not Pertinent, CAD, Other - Kidney stones Patient has suicidal ideation: No Patient has homicidal ideation: No - Past Medical History Cardiac Medical History: Reports: Hx Hypertension Denies: Hx Atrial Fibrillation, Hx Congestive Heart Failure, Hx Heart Attack, Hx Hypercholesterolemia Pulmonary Medical History: Reports: Hx Asthma Denies: Hx Bronchitis, Hx COPD, Hx Pneumonia, Hx Tuberculosis Neurological Medical History: Reports: Hx Migraine. Denies: Hx Cerebrovascular Accident, Hx Seizures, Hx Parkinson's Disease Endocrine Medical History: Denies: Hx Diabetes Mellitus Type 1, Hx Diabetes Mellitus Type 2 Renal/ Medical History: Reports: Hx Kidney Stones, Hx Renal Insufficiency. Denies: Hx End Stage Renal Disease, Hx Peritoneal Dialysis Malignancy Medical History: Denies Hx Lung Cancer GI Medical History: Denies: Hx Hepatitis Musculoskeletal Medical History: Reports Hx Arthritis Psychiatric Medical History: Reports: Hx Attention Deficit Hyperactivity Disorder, Hx Post Traumatic Stress Disorder - & ANXIETY Denies: Hx Bipolar Disorder, Hx Dementia, Hx Depression, Hx Schizophrenia Traumatic Medical History: Reports: Hx Fractures - 4X L ANKLE,L TIB/FIB, R ANKLE, L ARM, 3X R ARM, R FINGER Infectious Medical History: Denies: Hx Hepatitis Past Surgical History: Reports: Hx Orthopedic Surgery - left knee X3, right knee, bilateral carpal tunnel, Other - Patient has cervical and surgery, left knee repair and right knee repair.. Denies: Hx Appendectomy, Hx Cholecystectomy, Hx Tonsillectomy - Immunizations Hx Diphtheria, Pertussis, Tetanus Vaccination: Yes Review of Systems - Review of Systems Notes: Constitutional: Negative for fever. HENT: Negative for sore throat. Eyes: Negative for visual changes. Cardiovascular: Negative for chest pain. Respiratory: Negative for shortness of breath. Gastrointestinal: Negative for abdominal pain, vomiting or diarrhea. Genitourinary: Negative for dysuria. Musculoskeletal: Chronic knee, neck and back pain. Skin: Negative for rash. Neurological: Negative for headaches, weakness or numbness. 10 point ROS negative except as marked above and in HPI. Physical Exam - Vital signs Vitals: Temp Pulse Resp BP Pulse Ox 98.9 F 80 14 117/76 100 04/13/19 13:34 04/13/19 13:34 04/13/19 13:34 04/13/19 13:34 04/13/19 13:34 - Notes Notes: GENERAL: Muscular male of approximately stated age with very flat affect otherwise in no acute distress. SKIN: Good turgor no rashes. HEAD: Normocephalic atraumatic. EYES: PERRLA. EOMI. Conjunctivae and sclerae clear. EARS: CANALS AND TMS CLEAR. NOSE: CLEAR. MOUTH: Moist mucosa. Good dentition. No stridor or edema. No drooling. NECK: Supple. No masses or thyromegaly. No adenopathy. Carotids 2+ without bruits. No JVD. BACK: Symmetrical without tenderness. CHEST: Respirations unlabored. Breath sounds clear and symmetrical. HEART: Regular rhythm. No murmur gallop or rub. ABDOMEN: Multiple healed laparoscopy scars present. Soft nontender without masses, organomegaly or rebound. Bowel sounds normally active. No bruits. GENITALIA: Deferred. EXTREMITIES: No edema. No calf tenderness. Cap refill less than 1.5 seconds. Dorsalis pedis and posterior tibial pulses 3+ and symmetrical. NEUROLOGICAL: GCS 15. Alert and oriented x3. Normal gait. Fluent speech. Cranial nerves II through XII intact. Sensorimotor and cerebellar normal. Normal tone. PSYCHIATRIC: Flat affect. Course - Re-evaluation Re-evalutation: 04/13/19 23:17 Work-up here is basically negative. I wonder if some of this could have been related to withdrawal from his pain medication which he had not taken since last night. At any rate he appears very stable for outpatient neurology evaluation and we will make an appropriate referral for him. Patient balked at this insisting that he wanted to be admitted. I explained to him that I see no objective basis for admission here or transferred elsewhere on an emergent basis at this time. I think he can be worked up as an outpatient by neurologist. Of cautioned him not to drive or operate machinery. He said that he was going to have "problems" caring for his daughter at home. I referred this matter to our social work/discharge planning team. They have taken his information will contact him by telephone and also [facility] morning. - Vital Signs Vital signs: Temp Pulse Resp BP Pulse Ox 99.4 F 80 21 H 114/67 98 04/13/19 17:00 04/13/19 13:34 04/13/19 21:00 04/13/19 20:31 04/13/19 19:01 - Laboratory Result Diagrams: 04/13/19 13:35 04/13/19 13:35 Laboratory results interpreted by me: 04/13/19 13:35 RBC 3.93 L Hgb 12.1 L Hct 33.9 L RDW 14.6 H - Diagnostic Test Radiology reviewed: Reports reviewed - Normal noncontrast head CT per radiologist. - EKG Interpretation by Me Additional EKG results interpreted by me: 04/13/19 23:16 Twelve-lead EKG from 2303 hrs. reviewed contemporaneously by me showing normal sinus rhythm with a rate of 62, normal intervals, QRS axis of [address] or T wave changes. Discharge - Discharge Clinical Impression: Transient altered mental status, Chronic pain syndrome Condition: Stable Disposition: HOME, SELF-CARE Additional Instructions: You will need to see a neurologist as an outpatient for further evaluation. Do not drive or operate machinery until you have been evaluated by neurology. [facility]. Discharge planning team/social service manager has your contact information and will speak with you by phone tomorrow additionally. Continue current medications. Referrals: NATHANIEL COVARRUBIAS FNP [NO LOCAL MD] - Follow up as needed [facility] [[facility]] - Follow up as needed NEUROLOGY [Provider Group] - Follow up as needed
[2019-04-13 23:53] VITALS: BP 111/66
--- NOTE | 2019-04-14 19:43 | EKG REPORT ---
SEVERITY:- NORMAL ECG - SINUS RHYTHM : Confirmed by: Elayne Plunkett MD 14-Apr-2019 19:41:58
== END 2019-04-13 23:53 | disposition home or self-care (01) ==
LOC: ER 13:16
DX: R41.82 Altered mental status, unspecified (principal); G89.4 Chronic pain syndrome; Z79.899 Other long term (current) drug therapy; Z79.01 Long term (current) use of anticoagulants; Z86.711 Personal history of pulmonary embolism; Z88.8 Allergy status to other drugs, medicaments and biological substances; I10 Essential (primary) hypertension; J45.909 Unspecified asthma, uncomplicated
CPT/HCPCS: 93005; 99285; 96374; 96375; 36415; 82962; 80307 ×2; 83735; 85025; 80053; 81001; 70450; 93010; J2270; J2405

== ENCOUNTER 2019-05-03 23:04 | Emergency (ER) | payer OTHER ==
[2019-05-03 23:19] VITALS: BP 109/74
[2019-05-03] MEDS ORDERED: NORMAL SALINE 1000 ML 1,000 ML IV ONE (23:19)
--- NOTE | 2019-05-03 23:21 | ER Document Report ---
ED Medical Screen (RME) - General Chief Complaint: Low Blood Pressure Stated Complaint: POSSIBLE LOW BLOOD PRESSURE Time Seen by Provider: 05/03/19 23:15 Primary Care Provider: CHRISTIAN,NICOLE [Primary Care Provider] - Follow up as needed Mode of Arrival: Ambulatory Information source: Patient Notes: This 43-year-old male with history of high blood pressure presents to the emergency department with complaints of low blood pressure. Reports he got his sleep medication, Seroquel, mixed up with his high blood pressure medication, lisinopril. He reports he took 30 mg of lisinopril approximately 1-1/2 hours ago. He was wondering why he was not sleepy and he discovered he had mixed up the medications. He reports his normal blood pressure is 170/90 and when he took his blood pressure home it was 98 systolic. He reports he feels dizzy and lightheaded. Denies chest pain. Denies nausea fever vomiting diarrhea. I have greeted and performed a rapid initial assessment of this patient. A comprehensive ED assessment and evaluation of the patient, analysis of test results and completion of the medical decision making process will be conducted by additional ED providers. TRAVEL OUTSIDE OF THE [place] IN LAST 30 DAYS: No - Related Data Allergies/Adverse Reactions: No Known Drug Allergies Allergy (Verified 04/13/19 13:31) bee stings Allergy (Uncoded 04/13/19 13:31) Past Medical History - Past Medical History Cardiac Medical History: Reports: Hx Hypertension Denies: Hx Atrial Fibrillation, Hx Congestive Heart Failure, Hx Heart Attack, Hx Hypercholesterolemia Pulmonary Medical History: Reports: Hx Asthma Denies: Hx Bronchitis, Hx COPD, Hx Pneumonia, Hx Tuberculosis Neurological Medical History: Reports: Hx Migraine. Denies: Hx Cerebrovascular Accident, Hx Seizures, Hx Parkinson's Disease Endocrine Medical History: Denies: Hx Diabetes Mellitus Type 1, Hx Diabetes Mellitus Type 2 Renal/ Medical History: Reports: Hx Kidney Stones, Hx Renal Insufficiency. Denies: Hx End Stage Renal Disease, Hx Peritoneal Dialysis Malignancy Medical History: Denies Hx Lung Cancer GI Medical History: Denies: Hx Hepatitis Musculoskeltal Medical History: Reports Hx Arthritis Psychiatric Medical History: Reports: Hx Attention Deficit Hyperactivity Disorder, Hx Post Traumatic Stress Disorder - & ANXIETY Denies: Hx Bipolar Disorder, Hx Dementia, Hx Depression, Hx Schizophrenia Traumatic Medical History: Reports: Hx Fractures - 4X L ANKLE,L TIB/FIB, R ANKLE, L ARM, 3X R ARM, R FINGER Infectious Medical History: Denies: Hx Hepatitis Past Surgical History: Reports: Hx Orthopedic Surgery - left knee X3, right knee, bilateral carpal tunnel, Other - Patient has cervical and surgery, left knee repair and right knee repair.. Denies: Hx Appendectomy, Hx Cholecystectomy, Hx Tonsillectomy - Immunizations Hx Diphtheria, Pertussis, Tetanus Vaccination: Yes Physical Exam - Vital signs Vitals: Temp Pulse Resp BP Pulse Ox 98.2 F 105 H 18 109/74 99 05/03/19 23:17 05/03/19 23:17 05/03/19 23:17 05/03/19 23:17 05/03/19 23:17 Course - Vital Signs Vital signs: Temp Pulse Resp BP Pulse Ox 98.2 F 105 H 18 109/74 99 05/03/19 23:17 05/03/19 23:17 05/03/19 23:17 05/03/19 23:17 05/03/19 23:17 Doctor's Discharge - Discharge Referrals: [facility] [[facility]] - Follow up as needed
== END 2019-05-04 01:15 | disposition left against medical advice (07) ==
LOC: ER 23:04
DX: I95.9 Hypotension, unspecified (principal); I10 Essential (primary) hypertension; Z87.442 Personal history of urinary calculi
CPT/HCPCS: 99281

== ENCOUNTER 2019-05-25 09:18 | Emergency (ER) | payer OTHER ==
[2019-05-25] MEDS ORDERED: KETOROLAC TROMETHAMINE 60 MG/2 ML SDV IM ONE (09:37)
[2019-05-25] MEDS ORDERED: DEXAMETHASONE SOD PHOS INJ 10 MG/1 ML VIAL IM ONE (09:37)
--- NOTE | 2019-05-25 09:46 | ER Document Report ---
HPI - HPI Time Seen by Provider: 05/25/19 09:27 Pain Level: 3 Context: Patient is a 43-year-old male with history of chronic knee pain who presents the emergency department with a chief complaint of left knee pain. He states that around 230 last night he ended up falling. States he heard a "pop." He ended up taking baclofen to help with his pain, but did not help. Patient is on chronic pain management. He is also under pain management contract.Patient has history of bariatric surgery, cervical spinal fusion, and multiple bilateral knee surgeries. Patient is scheduled was scheduled for surgery on his ACL May 15, but due to COVID 19, his surgery has been postponed to June 15. - ROS Systems Reviewed and Negative: Yes All other systems reviewed and negative - CONSTITUTIONAL Constitutional: DENIES: Fever, Chills - EENT EENT: DENIES: Sore Throat, Ear Pain, Nasal Drainage-Clear, Congestion, Eye problems - NEURO Neurology: DENIES: Headache - CARDIOVASCULAR Cardiovascular: DENIES: Chest pain - RESPIRATORY Respiratory: DENIES: Trouble Breathing, Coughing - MUSCULOSKELETAL Musculoskeletal: REPORTS: Extremity pain, Swelling - Left knee - DERM Skin Color: Normal Skin Problems: None Past Medical History - Social History Smoking Status: Never Smoker Chew tobacco use (# tins/day): No Frequency of alcohol use: None Drug Abuse: None Family History: Reviewed & Not Pertinent, CAD, Other - Kidney stones Patient has suicidal ideation: No Patient has homicidal ideation: No - Past Medical History Cardiac Medical History: Reports: Hx Hypertension Denies: Hx Atrial Fibrillation, Hx Congestive Heart Failure, Hx Heart Attack, Hx Hypercholesterolemia Pulmonary Medical History: Reports: Hx Asthma Denies: Hx Bronchitis, Hx COPD, Hx Pneumonia, Hx Tuberculosis Neurological Medical History: Reports: Hx Migraine. Denies: Hx Cerebrovascular Accident, Hx Seizures, Hx Parkinson's Disease Endocrine Medical History: Denies: Hx Diabetes Mellitus Type 1, Hx Diabetes Mellitus Type 2 Renal/ Medical History: Reports: Hx Kidney Stones, Hx Renal Insufficiency. Denies: Hx End Stage Renal Disease, Hx Peritoneal Dialysis Malignancy Medical History: Denies Hx Lung Cancer GI Medical History: Denies: Hx Hepatitis Musculoskeletal Medical History: Reports Hx Arthritis Psychiatric Medical History: Reports: Hx Attention Deficit Hyperactivity Disorder, Hx Post Traumatic Stress Disorder - & ANXIETY Denies: Hx Bipolar Disorder, Hx Dementia, Hx Depression, Hx Schizophrenia Traumatic Medical History: Reports: Hx Fractures - 4X L ANKLE,L TIB/FIB, R ANKLE, L ARM, 3X R ARM, R FINGER Infectious Medical History: Denies: Hx Hepatitis Past Surgical History: Reports: Hx Orthopedic Surgery - left knee X3, right knee, bilateral carpal tunnel, Other - Patient has cervical and surgery, left knee repair and right knee repair.. Denies: Hx Appendectomy, Hx Cholecystectomy, Hx Tonsillectomy - Immunizations Hx Diphtheria, Pertussis, Tetanus Vaccination: Yes Vertical Provider Document - CONSTITUTIONAL Agree With Documented VS: Yes Exam Limitations: No Limitations General Appearance: No Apparent Distress - INFECTION CONTROL TRAVEL OUTSIDE OF THE [place] IN LAST 30 DAYS: No - HEENT HEENT: Atraumatic, Normocephalic, PERRLA - NECK Neck: Normal Inspection - RESPIRATORY Respiratory: No Respiratory Distress - CARDIOVASCULAR Cardiovascular: Regular Rate, Regular Rhythm Pulses: Normal: Posterior tibial, Dorsalis pedis - MUSCULOSKELETAL/EXTREMETIES Musculoskeletal/Extremeties: Tender - Left knee, Edema - Mild to left knee. negative: FROM - Left knee - NEURO Level of Consciousness: Awake, Alert, Appropriate Motor/Sensory: No Motor Deficit, No Sensory Deficit - DERM Integumentary: Warm, Dry, No Rash Course - Re-evaluation Re-evalutation: 05/25/19 10:45 Patient's knee x-ray shows mild joint space narrowing and a small joint e ffusion. Discussed these findings with the patient. Patient will follow-up with orthopedics in regards to this visit. He will also follow-up with pain management. He received Decadron and Toradol here in the emergency department. Follow-up precautions were given. Verbal discharge instructions were given to the patient. They verbalized understanding. They are stable for discharge. - Vital Signs Vital signs: Temp Pulse Resp BP Pulse Ox 98.8 F 97 16 134/70 H 96 05/25/19 09:23 05/25/19 09:23 05/25/19 09:23 05/25/19 09:23 05/25/19 09:23 Procedures - Immobilization Left Knee Pre-Proc Neuro Vasc Exam: Normal Immobilizer type: Crutches, Knee immobilizer Performed by: PCT Post-Proc Neuro Vasc Exam: Normal, Unchanged from pre-exam Alignment checked and good: Yes Discharge - Discharge Clinical Impression: Left knee pain Qualifiers: Chronicity: unspecified Qualified Code(s): M25.562 - Pain in left knee Condition: Stable Disposition: HOME, SELF-CARE Instructions: Use of Crutches ([facility]), Ice & Elevation ([facility]), Knee Immobilizing Splint ([facility]) Additional Instructions: You are seen today in the emergency department for knee pain after a fall and chronic knee issues. You are being prescribed a cream for your knee. Use this as directed. You are also being placed in a knee immobilizer. You can use it if it helps with your knee pain. Please also rest, apply ice, and elevate your leg. Follow-up with orthopedics as scheduled. Prescriptions: Diclofenac/Lido/Me-[place]/Camphor [Diclovix Kit] 1 each TP QID PRN #[id number] [email or web address] PRN Reason: Referrals: [facility] [[facility]] - Follow up as needed TORY HERNÁNDEZ MD [ACTIVE STAFF] - 06/16/19
--- NOTE | 2019-05-25 10:08 | RADIOLOGY REPORT (SQ) ---
EXAM DESCRIPTION: KNEE LEFT 4 VIEW IMAGES COMPLETED DATE/TIME: 05/25/2019 10:01 am REASON FOR STUDY: fall; knee pain COMPARISON: None. NUMBER OF VIEWS: Four views. TECHNIQUE: AP, lateral, and both oblique radiographic images acquired of the left knee. LIMITATIONS: None. FINDINGS: MINERALIZATION: Normal. BONES: No acute fracture or dislocation. No worrisome bone lesions. JOINT: Mild joint space narrowing in all compartments consistent with osteoarthritis. Prior ACL repa ir. Small joint effusion. SOFT TISSUES: No soft tissue swelling. No radio-opaque foreign body. OTHER: No other significant finding. IMPRESSION: Degenerative changes. Small joint effusion. Prior ACL repair. TECHNICAL DOCUMENTATION: JOB ID: [id number] 2010 [employer]- All Rights Reserved Reading location - IP/workstation name: [email or web address]
[2019-05-25 11:10] VITALS: BP 121/94
== END 2019-05-25 11:08 | disposition home or self-care (01) ==
LOC: ER 09:18
DX: G89.29 Other chronic pain (principal); M25.562 Pain in left knee; W19.XXXA Unspecified fall, initial encounter; I10 Essential (primary) hypertension; Z87.442 Personal history of urinary calculi; Z98.1 Arthrodesis status
CPT/HCPCS: 99283; 96372; 73564; J1885; J1100

== ENCOUNTER 2019-06-12 15:09 | Emergency (ER) | payer OTHER ==
[2019-06-12 15:16] VITALS: BP 126/81
== END 2019-06-12 15:33 | disposition left against medical advice (07) ==
LOC: ER 15:09
DX: Z53.21 Procedure and treatment not carried out due to patient leaving prior to being seen by health care provider (principal)

== ENCOUNTER 2019-08-15 07:00 | Inpatient (IN) | payer OTHER ==
[2019-08-10 09:37] LABS: HEMATOCRIT 42.3 % (37.9-51.0); HEMOGLOBIN 14.4 g/dL (13.5-17.0); MEAN CORPUSCULAR HEMOGLOBIN 31.1 pg (27.0-33.4); MEAN CORPUSCULAR HGB CONC 34.1 g/dL (32.0-36.0); MEAN CORPUSCULAR VOLUME 91 fl (80-97); PLATELET COUNT 275 10^3/uL (150-450); RED BLOOD COUNT 4.63 10^6/uL (4.35-5.55); WHITE BLOOD COUNT 4.3 10^3/uL (4.0-10.5)
[2019-08-10 09:43] LABS: APPEARANCE,URINE CLEAR; BILIRUBIN,URINE NEGATIVE (NEGATIVE); COLOR,URINE YELLOW; GLUCOSE, URINE NEGATIVE (NEGATIVE); KETONES,URINE NEGATIVE (NEGATIVE); LEUKOCYTE ESTERASE,URINE MODERATE (NEGATIVE); NITRITE,URINE NEGATIVE (NEGATIVE); PROTEIN,URINE NEGATIVE (NEGATIVE); URINE SPECIFIC GRAVITY 1.015; UROBILINOGEN,URINE NEGATIVE mg/dL (<2.0)
[2019-08-10 09:56] LABS: ANION GAP 10 (5-19); BLOOD UREA NITROGEN 10 mg/dL (7-20); CALCIUM 9.7 mg/dL (8.4-10.2); CARBON DIOXIDE 29 mmol/L (22-30); CHLORIDE 99 mmol/L (98-107); GLUCOSE 91 mg/dL (75-110); POTASSIUM 4.1 mmol/L (3.6-5.0)
--- NOTE | 2019-08-10 10:40 | RADIOLOGY REPORT (SQ) ---
EXAM DESCRIPTION: CHEST PA/LATERAL IMAGES COMPLETED DATE/TIME: 08/10/2019 9:26 am REASON FOR STUDY: PRE-OP COMPARISON: 03/15/2019 EXAM PARAMETERS: NUMBER OF VIEWS: two views TECHNIQUE: Digital Frontal and Lateral radiographic views of the chest acquired. RADIATION DOSE: NA LIMITATIONS: none FINDINGS: LUNGS AND PLEURA: No opacities, masses or pneumothorax. No pleural effusion. MEDIASTINUM AND HILAR STRUCTURES: No masses or contour abnormalities. HEART AND VASCULAR STRUCTURES: Heart normal size. No evidence for failure. BONES: No acute findings. HARDWARE: None in the chest. OTHER: Stable hardware overlying the upper thoracic vertebra. IMPRESSION: 1. No significant interval changes since the prior examination dated 03/13/2019. No acu te findings. TECHNICAL DOCUMENTATION: JOB ID: [id number] 2010 [employer]- All Rights Reserved Reading location - IP/workstation name: [email or web address]
--- NOTE | 2019-08-10 13:16 | EKG REPORT ---
SEVERITY:- NORMAL ECG - SINUS RHYTHM : Confirmed by: Shirley Sam 10-Aug-2019 13:15:48
[~2019-08-15 07:00] MED LIST changes: +BUPIVACAINE INJ/PF LIPOSOME/PF 266 MG/20 ML SDV INJ PRN; -CEFAZOLIN 2 GM/D5W RTU 2 GM/50 ML RTUPB IV PRN; +CEFAZOLIN INJ 1 GM VIAL IV PRN; +DEXAMETHASONE SOD PHOSPHATE INJ 4 MG/1 ML VIAL ONE; +FENTANYL CITRATE INJ/PF 100 MCG/2 ML AMPUL ONE; +IBUPROFEN 800 MG in NORMAL SALINE 250 ML IV PRN; +LIDOCAINE 0.5% INJ-PF (5 MG/ML) 50 ML SDV SUBCUT PRN; +MIDAZOLAM 2 MG/2 ML INJ ONE; +ONDANSETRON HCL INJ/PF 4 MG/2 ML SDV ONE; +OXYCODONE HCL SR 10 MG TABLET PO PRN; +PANTOPRAZOLE SODIUM 20 MG TABLET.DR PO PRN; +PROPOFOL INJ 200 MG/20 ML VIAL IV ONE; +TRANEXAMIC ACID INJ/PF 1,000 MG/10 ML SDV ONE; +VANCOMYCIN HCL 1,000 MG in DEXTROSE 5%-WATER 250 ML IV PRN
[2019-08-15] MEDS ORDERED: ALPRAZOLAM 0.5 MG TABLET ONE (07:53)
[2019-08-15] MEDS ORDERED: OXYCODONE HCL SR 10 MG TABLET PO ONE (08:13)
[2019-08-15] MEDS ORDERED: PANTOPRAZOLE SODIUM 20 MG TABLET.DR PO ONE ×2 (08:13→09:15)
[2019-08-15] MEDS ORDERED: CEFAZOLIN 1 GM/D5W RTU 1 GM/50 ML RTUPB IV ONE (08:13)
[2019-08-15] MEDS ORDERED: PROPOFOL INJ 200 MG/20 ML VIAL IV ONE (08:56)
[2019-08-15] MEDS ORDERED: BUPIVACAINE HCL 0.25% /EPINEPHRINE INJ/PF 30 ML SDV ONE (09:10)
[2019-08-15] MEDS ORDERED: ONDANSETRON HCL INJ/PF 4 MG/2 ML SDV IV PRN (10:03)
[2019-08-15] MEDS ORDERED: PROMETHAZINE HCL INJ 25 MG/1 ML VIAL IV PRN ×2 (10:03)
[2019-08-15] MEDS ORDERED: FENTANYL CITRATE INJ/PF 100 MCG/2 ML AMPUL IV PRN ×3 (10:03)
[2019-08-15] MEDS ORDERED: MORPHINE SULFATE 10 MG/ML INJ IV PRN ×2 (10:03→23:00)
[2019-08-15] MEDS ORDERED: MEPERIDINE HCL/PF INJ 25 MG/1 ML DISP.SYRIN IV PRN (10:03)
[2019-08-15] MEDS ORDERED: DIPHENHYDRAMINE HCL 50 MG/ML VIAL IV PRN ×3 (10:03→23:00)
--- NOTE | 2019-08-15 10:30 | Operative Report ---
Operative Report DATE OF SURGERY: 08/15/19 PREOPERATIVE DIAGNOSIS: Posttraumatic left knee arthritis OPERATION: Left knee arthroplasty SURGEON: TORY HERNÁNDEZ ANESTHESIA: GA TISSUE REMOVED OR ALTERED: Bone to pathology ESTIMATED BLOOD LOSS: 75 PROCEDURE: Implants used: Femur: Nancy triathlon size 7 uncemented CR femur Tibia: 6 uncemented tibia Tibial liner: 9 mm CS insert Patella: 38 mm uncemented patella Procedure with the patient supine on the operating table the left the limb is prepped and draped in a sterile fashion. The limb was elevated for exsanguination and the tourniquet inflated to 280 torr. A standard midline median parapatellar approach the knee is taken. Access is gained to the femoral canal through the intercondylar notch. Intramedullary alignment instrumentation used to resect 10 mm of distal femur in 5 of valgus. Sizing guide indicated a size 7 femur. Appropriate cutting jig is then used to fashion anterior posterior and chamfer cuts. A trial reduction femurs performed and this is judged to be adequate. Attention was next turned to the tibia. Using an extra medullary alignment system 9 millimeters was resected off the lateral tibial plateau. This is sized to a size 6 tibia. A trial reduction was now performed with a 7 femur and a 6 tibia using a 9 millimeters spacer. It is full extension and central patellofemoral tracking. The articular surface the patella was next resected using an oscillating saw. All trial implants were removed. The above implants are impacted into position. Excess cement was removed the tourniquet was deflated hemostasis obtained the wound is then closed in layers using interrupted Vicryl followed by terry. A sterile compressive dressing was applied and the patient returned to recovery room in satisfactory condition.
[2019-08-15] MEDS ORDERED: MAG HYDROX/AL HYDROX/SIMETH SUSP 30 ML UDCUP PO PRN (10:31)
[2019-08-15] MEDS ORDERED: TRANEXAMIC ACID INJ/PF 1,000 MG/10 ML SDV IV ONE ×2 (10:31→23:00)
[2019-08-15] MEDS ORDERED: ZOLPIDEM TARTRATE 5 MG TABLET PO PRN (10:31)
[2019-08-15] MEDS ORDERED: ONDANSETRON 4 MG TAB.RAPDIS PO PRN ×2 (10:31→23:00)
[2019-08-15] MEDS ORDERED: ACETAMINOPHEN 325 MG TABLET PO PRN (10:31)
--- NOTE | 2019-08-15 11:16 | RADIOLOGY REPORT (SQ) ---
EXAM DESCRIPTION: KNEE LEFT 2 VIEWS IMAGES COMPLETED DATE/TIME: 08/15/2019 11:06 am REASON FOR STUDY: Post OP -Long Cassette in PACU M17.12 UNILATERAL PRIMARY OSTEOARTHRITIS, LEFT KNE E COMPARISON: None. NUMBER OF VIEWS: Two view(s). TECHNIQUE: Digital radiographic images of the left knee post-procedure. LIMITATIONS: None. FINDINGS: BONES: No worrisome or unexpected findings post-procedure. DEVICE: Total knee arthroplasty. SOFT TISSUES: No worrisome findings. Expected postoperative soft tissue changes. IMPRESSION: SATISFACTORY POSTOPERATIVE LEFT KNEE. TECHNICAL DOCUMENTATION: JOB ID: [id number] 2010 [employer]- All Rights Reserved Reading location - IP/workstation name: [email or web address]
[2019-08-15] MEDS: MEPERIDINE HCL/PF INJ 25 MG/1 ML DISP.SYRIN ONE ×2 (11:20→11:30)
[2019-08-15] MEDS ORDERED: MIDAZOLAM 2 MG/2 ML INJ ONE (11:46)
[2019-08-15] MEDS ORDERED: BUPIVACAINE HCL 0.5%-EPI 1:200000 INJ/PF 30 ML VIAL ONE (11:52)
[2019-08-15] MEDS ORDERED: MIDAZOLAM 2 MG/2 ML INJ IV PRN (12:30)
[2019-08-15] MEDS: MORPHINE SULFATE 10 MG/ML INJ ONE ×2 (12:30→12:40)
[2019-08-15] MEDS ORDERED: OXYCODONE HCL IR 5 MG TABLET ONE (13:41)
[2019-08-15] MEDS: OXYCODONE HCL IR 5 MG TABLET PO PRN ×2 (13:42→20:01)
[2019-08-15] MEDS ORDERED: IBUPROFEN 800 MG in NORMAL SALINE 250 ML IV SCH (14:00)
[2019-08-15] MEDS ORDERED: SUCCINYLCHOLINE CHLORIDE INJ 200 MG/10 ML VIAL ONE (14:15)
[2019-08-15] MEDS ORDERED: RIVAROXABAN 10 MG TABLET PO SCH (17:00)
[2019-08-15] MEDS: IBUPROFEN 800 MG in NORMAL SALINE 250 ML IV SCH (17:53)
[2019-08-15] MEDS: RINGERS SOLUTION,LACTATED 1,000 ML IV PRN (17:53)
[2019-08-15] MEDS ORDERED: OXYCODONE HCL SR 10 MG TABLET PO SCH ×2 (18:00→22:00)
[2019-08-15] MEDS: SENNOSIDES/DOCUSATE 8.6-50 MG 1 EACH TABLET PO SCH (18:02)
[2019-08-15] MEDS: OXYCODONE HCL SR 10 MG TABLET PO SCH (18:12)
[2019-08-15] MEDS ORDERED: OXYCODONE HCL IR 5 MG TABLET PO ONE (20:45)
[2019-08-15] MEDS ORDERED: VANCOMYCIN HCL 1,000 MG in DEXTROSE 5%-WATER 250 ML IV ONE (22:30)
[2019-08-15] MEDS ORDERED: OXYCODONE HCL IR 5 MG TABLET PO PRN (23:00)
[2019-08-15] MEDS: MORPHINE SULFATE 10 MG/ML INJ IV PRN (23:46)
[2019-08-16] MEDS: MORPHINE SULFATE 10 MG/ML INJ IV PRN ×6 (01:05→09:17)
[2019-08-16] MEDS: IBUPROFEN 800 MG in NORMAL SALINE 250 ML IV SCH ×2 (02:34→09:19)
[2019-08-16] MEDS: OXYCODONE HCL IR 5 MG TABLET PO PRN (02:42)
[2019-08-16 05:42] LABS: HEMATOCRIT 32.1 % (37.9-51.0); HEMOGLOBIN 11.1 g/dL (13.5-17.0); MEAN CORPUSCULAR HEMOGLOBIN 31.3 pg (27.0-33.4); MEAN CORPUSCULAR HGB CONC 34.4 g/dL (32.0-36.0); MEAN CORPUSCULAR VOLUME 91 fl (80-97); PLATELET COUNT 212 10^3/uL (150-450); RED BLOOD COUNT 3.54 10^6/uL (4.35-5.55); RED CELL DISTRIBUTION WIDTH 13.9 % (11.5-14.0); WHITE BLOOD COUNT 9.8 10^3/uL (4.0-10.5)
[2019-08-16] MEDS: OXYCODONE HCL SR 10 MG TABLET PO SCH (05:59)
[2019-08-16] MEDS ORDERED: PANTOPRAZOLE SODIUM 20 MG TABLET.DR PO SCH (06:00)
[2019-08-16] MEDS ORDERED: PREGABALIN 75 MG CAPSULE PO SCH (06:00)
[2019-08-16] MEDS ORDERED: IBUPROFEN 800 MG in NORMAL SALINE 250 ML IV SCH (06:00)
[2019-08-16 06:08] LABS: ANION GAP 5 (5-19); BLOOD UREA NITROGEN 12 mg/dL (7-20); CALCIUM 8.5 mg/dL (8.4-10.2); CARBON DIOXIDE 26 mmol/L (22-30); CHLORIDE 103 mmol/L (98-107); GLUCOSE 111 mg/dL (75-110)
[2019-08-16] MEDS: RINGERS SOLUTION,LACTATED 1,000 ML IV PRN (06:12)
--- NOTE | 2019-08-16 07:01 | PDOC DISCHARGE SUMMARY ---
Impression - Admit/DC Date/PCP Admission Date/Primary Care Provider: 08/15/19 07:00 [facility] Discharge Date: 08/16/19 - Discharge Diagnosis (1) Arthritis of left knee Is this a current diagnosis for this admission?: Yes - Additional Information Resuscitation Status: Full Code Discharge Diet: Regular Discharge Activity: Balance Activity w/Rest, No tub bath Referrals: TORY HERNÁNDEZ MD [ACTIVE STAFF] - 08/25/19 9:00 am Home Medications: Lisinopril [Prinivil 10 mg Tablet] 20 mg PO DAILY 05/13/18 Omeprazole 20 mg PO DAILY 03/07/19 Quetiapine Fumarate [Seroquel] 200 mg PO QHS 08/10/19 Oxycodone HCl/Acetaminophen [Oxycodone-Acetaminophen 10-325] 1 tab PO QIDP PRN 08/15/19 History of Present Illiness History of Present Illness: GOLDY GREEN is a 44 year old male 44-year-old black male with progressive left knee pain secondary to posttraumatic osteoarthritis. Patient admitted for elective left knee arthroplasty. Hospital Course Hospital Course: Patient is admitted through the operating where he undergoes uncomplicated left knee arthroplasty. Is returned to the floor in satisfactory condition. Postoperative analgesia remains problematic for some at least in part because the patient's preoperative narcotic use. Physical therapy is limited on the day of surgery because of his late return to the floor. Patient will return to receive physical therapy on the first postoperative morning with anticipated discharge thereafter. Physical Exam Vital Signs: Temp Pulse Resp BP Pulse Ox 36.6 C 78 17 130/69 H 97 08/16/19 00:00 08/16/19 00:00 08/16/19 00:00 08/16/19 00:00 08/16/19 00:00 Intake & Output 08/14/19 08/15/19 08/16/19 06:59 06:59 06:59 Intake Total 8149 Output Total 4209 Balance 3940 Weight 110.2 kg General appearance: PRESENT: mild distress Head exam: PRESENT: normocephalic Respiratory exam: PRESENT: unlabored Cardiovascular exam: PRESENT: RRR Pulses: PRESENT: +1 pedal pulses bilateral GI/Abdominal exam: PRESENT: soft Rectal exam: PRESENT: deferred Musculoskeletal exam: PRESENT: other - Compressive dressing is removed from the left lower extremity. Underlying OpSite dressing is clean dry and intact. There is minimal pedal edema. Distal neurovascular examination is intact. Results Laboratory Results: WBC 9.8 10^3/uL (4.0-10.5) 08/16/19 05:03 RBC 3.54 10^6/uL (4.35-5.55) L 08/16/19 05:03 Hgb 11.1 g/dL (13.5-17.0) L 08/16/19 05:03 Hct 32.1 % (37.9-51.0) L 08/16/19 05:03 MCV 91 fl (80-97) 08/16/19 05:03 MCH 31.3 pg (27.0-33.4) 08/16/19 05:03 MCHC 34.4 g/dL (32.0-36.0) 08/16/19 05:03 RDW 13.9 % (11.5-14.0) 08/16/19 05:03 Plt Count 212 10^3/uL (150-450) 08/16/19 05:03 Sodium 133.7 mmol/L (137-145) L 08/16/19 05:03 Potassium 4.0 mmol/L (3.6-5.0) 08/16/19 05:03 Chloride 103 mmol/L (98-107) 08/16/19 05:03 Carbon Dioxide 26 mmol/L (22-30) 08/16/19 05:03 Anion Gap 5 (5-19) 08/16/19 05:03 BUN 12 mg/dL (7-20) 08/16/19 05:03 Creatinine 1.01 mg/dL (0.52-1.25) 08/16/19 05:03 Est GFR ( Amer) > 60 (>60) 08/16/19 05:03 Est GFR (MDRD) Non-Af > 60 (>60) 08/16/19 05:03 Glucose 111 mg/dL (75-110) H 08/16/19 05:03 Calcium 8.5 mg/dL (8.4-10.2) 08/16/19 05:03 Urine Color YELLOW 08/10/19 08:37 Urine Appearance CLEAR 08/10/19 08:37 Urine pH 6.0 (5.0-9.0) 08/10/19 08:37 Ur Specific [place] 1.015 08/10/19 08:37 Urine Protein NEGATIVE mg/dL (NEGATIVE) 08/10/19 08:37 Urine Glucose (UA) NEGATIVE mg/dL (NEGATIVE) 08/10/19 08:37 Urine Ketones NEGATIVE mg/dL (NEGATIVE) 08/10/19 08:37 Urine Blood NEGATIVE (NEGATIVE) 08/10/19 08:37 Urine Nitrite NEGATIVE (NEGATIVE) 08/10/19 08:37 Urine Bilirubin NEGATIVE (NEGATIVE) 08/10/19 08:37 Urine Urobilinogen NEGATIVE mg/dL (<2.0) 08/10/19 08:37 Ur Leukocyte Esterase MODERATE (NEGATIVE) H 08/10/19 08:37 Urine WBC (Auto) 6 /HPF 08/10/19 08:37 Urine RBC (Auto) 1 /HPF 08/10/19 08:37 Urine Mucus (Auto) RARE /LPF 08/10/19 08:37 Urine Ascorbic Acid NEGATIVE (NEGATIVE) 08/10/19 08:37 COVID-19 Source NASOPHARYNGEAL 08/10/19 08:30 COVID-19 (SKYLAR) NOT DETECTED 08/10/19 08:30 Blood Type B POSITIVE 08/15/19 07:25 Antibody Screen NEGATIVE 08/15/19 07:25 Impressions: Chest X-Ray 08/10/19 09:21 IMPRESSION: 1. No significant interval changes since the prior examination dated 03/13/2019. No acute findings. Knee X-Ray 08/15/19 10:32 IMPRESSION: SATISFACTORY POSTOPERATIVE LEFT KNEE. Plan Plan of Treatment: Patient to be discharged home with home health services and DME. Follow-up Dr. Abe Tomlinson Morris for surgery in 2 weeks for staple removal. Stroke Is this a Stroke Patient?: No Stroke Pt being discharged on Anti-thrombolytic therapy?: Yes Acute Heart Failure - Is this a Heart Failure Patient?: No
[2019-08-16 09:13] VITALS: BP 122/75
[2019-08-16] MEDS: SENNOSIDES/DOCUSATE 8.6-50 MG 1 EACH TABLET PO SCH (09:19)
[2019-08-16] MEDS ORDERED: LISINOPRIL 10 MG TABLET PO SCH (10:00)
[2019-08-16] MEDS ORDERED: PANTOPRAZOLE SODIUM 40 MG TABLET.DR PO SCH (10:00)
[2019-08-16] MEDS ORDERED: PRENATAL VITAMIN W DHA CAPSULE PO SCH (10:00)
[2019-08-16] MEDS ORDERED: OXYCODONE HCL SR 10 MG TABLET PO SCH (10:00)
== END 2019-08-16 10:38 | disposition home or self-care (01) | DRG 470 ==
LOC: INOR 07:00 → 4W 15:29
PROVIDERS: ADMIT Orthopaedic Surgery; ATTEND Orthopaedic Surgery
PROC: 0SRD0J9 Replacement of Left Knee Joint with Synthetic Substitute, Cemented, Open Approach (ICD-10-PCS; principal; 2019-08-15 09:00)
DX: M17.32 Unilateral post-traumatic osteoarthritis, left knee (principal); E66.01 Morbid (severe) obesity due to excess calories; F32.9 Major depressive disorder, single episode, unspecified; I10 Essential (primary) hypertension; F43.10 Post-traumatic stress disorder, unspecified; F41.9 Anxiety disorder, unspecified; Z91.030 Bee allergy status; Z03.818 Encounter for observation for suspected exposure to other biological agents ruled out; Z83.3 Family history of diabetes mellitus; Z82.49 Family history of ischemic heart disease and other diseases of the circulatory system; Z79.899 Other long term (current) drug therapy
CPT/HCPCS: 01402; 36415; 71046; 80048; 81001; 85027; 86850; 86900; 86901; 87635; 88305; 88311; 93005; 93010; 94799; C1776; C9803; J0330; J0690; J1100; J1741; J2175; J2250; J2270; J2405; J2704; J3010; J3370; J3490; J7050; J7060; J7120; S0119

== ENCOUNTER 2019-08-20 08:00 | Emergency (ER) | payer OTHER ==
[2019-08-20 08:05] VITALS: BP 131/67
[2019-08-20] MEDS ORDERED: HYDROMORPHONE HCL 2 MG TABLET PO ONE (09:46)
--- NOTE | 2019-08-20 10:22 | ER Document Report ---
ED General - General Chief Complaint: Wound Recheck Stated Complaint: POST SURGICAL PAIN Time Seen by Provider: 08/20/19 09:45 [facility] Provider: [facility] [[facility]] - Follow up as needed Notes: 44-year-old male with past medical history of hypertension and left knee replacement. States he has had a left knee replacement 4 days ago. Done by [facility]. Surgeon is Dr. Fish. States that his honeycomb dressing came off. States that the cellulitis and he is in the emergency department. States his last pain medication dose was around 2 AM. His next appointment with surgery is in 2 weeks. He denies noting any discharge or erythema at the site. Denies any leg pain. Is taking Xarelto and Hydromorphone. States that his surgeon initially placed him on Percocet that was not controlling his pain very well. His surgeon increased him to 5 mg of hydromorphone which he states he takes as prescribed. He denies any fever, chills, shortness of breath, thigh or calf pain. TRAVEL OUTSIDE OF THE [place] IN LAST 30 DAYS: No - Related Data Allergies/Adverse Reactions: bee venom protein (honey bee) Allergy (Severe, Verified 08/15/19 11:04) Anaphylaxis Past Medical History - Social History Smoking Status: Never Smoker Frequency of alcohol use: None Drug Abuse: None Family History: Reviewed & Not Pertinent, CAD, Other - Kidney stones - Past Medical History Cardiac Medical History: Reports: Hx Hypertension Denies: Hx Atrial Fibrillation, Hx Congestive Heart Failure, Hx Coronary Artery Disease, Hx Heart Attack, Hx Hypercholesterolemia, Hx Peripheral Vascular Disease, Hx Heart Murmur Pulmonary Medical History: Reports: Hx Asthma Denies: Hx Bronchitis, Hx COPD, Hx Pneumonia, Hx Tuberculosis Neurological Medical History: Reports: Hx Migraine. Denies: Hx Cerebrovascular Accident, Hx Seizures, Hx Parkinson's Disease Endocrine Medical History: Denies: Hx Diabetes Mellitus Type 1, Hx Diabetes Mellitus Type 2 Renal/ Medical History: Reports: Hx Kidney Stones, Hx Renal Insufficiency. Denies: Hx End Stage Renal Disease, Hx Peritoneal Dialysis Malignancy Medical History: Denies Hx Lung Cancer GI Medical History: Reports: Hx Gastroesophageal Reflux Disease. Denies: Hx Crohn's Disease, Hx Hepatitis, Hx Hiatal Hernia, Hx Irritable Bowel, Hx Liver Failure, Hx Pancreatitis, Hx Ulcer Musculoskeletal Medical History: Reports Hx Arthritis, Denies Hx Fibromyalgia, Denies Hx Muscular Dystrophy Psychiatric Medical History: Reports: Hx Attention Deficit Hyperactivity Disorder, Hx Post Traumatic Stress Disorder Denies: Hx Bipolar Disorder, Hx Dementia, Hx Depression, Hx Schizophrenia Traumatic Medical History: Denies: Hx Fractures Infectious Medical History: Denies: Hx Hepatitis Past Surgical History: Reports: Hx Orthopedic Surgery - left knee X3, right knee, bilateral carpal tunnel, Other - Patient has cervical and surgery, left knee repair and right knee repair.. Denies: Hx Appendectomy, Hx Cholecystectomy, Hx Colostomy, Hx Pacemaker, Hx Tonsillectomy - Immunizations Hx Diphtheria, Pertussis, Tetanus Vaccination: Yes Review of Systems - Review of Systems Constitutional: No symptoms reported EENT: No symptoms reported Cardiovascular: No symptoms reported Respiratory: No symptoms reported Gastrointestinal: No symptoms reported Genitourinary: No symptoms reported Male Genitourinary: No symptoms reported Musculoskeletal: See HPI Skin: See HPI Hematologic/Lymphatic: No symptoms reported Neurological/Psychological: No symptoms reported Physical Exam - Vital signs Vitals: Temp Pulse Resp BP Pulse Ox 98.9 F 87 16 131/67 H 94 08/20/19 08:04 08/20/19 08:04 08/20/19 08:04 08/20/19 08:04 08/20/19 08:04 Interpretation: No: Hypertensive, Bradycardic, Tachycardic, Hypoxic - Notes Notes: Adult General: GENERAL: Alert, interacts well. No acute distress, non toxic HEAD: Normocephalic, atraumatic EYES: Extraocular movements intact. ENT: Airway patent. Nares patent. NECK: Full range of motion. Supple. Trachea midline. LUNGS: Nontender chest wall. HEART: Regular rate and rhythm. No murmurs, rubs or gallops. ABDOMEN: Soft, nontender. GENITOURINARY: Deferred EXTREMITIES: Moves all 4 extremities spontaneously. Linear surgical incision approximately 16 cm across his knee with multiple terry. No erythema, no discharge. Mildly tender around incisin site. Left calf mildly swollen but no tenderness. (-) liv sign. BACK: Moves all extremities with full range of motion. NEUROLOGICAL: Alert and oriented x3. Normal speech. PSYCH: Normal affect, normal mood. SKIN: Warm, dry, normal turgor. No rashes or lesions noted. Course - Re-evaluation Re-evalutation: 08/20/19 10:26 Dressing was assessed after placement. His vital signs are stable. Exam is reassuring. No signs of infection. I have low suspicion of any DVTs at this time. He has no tenderness to his calf and his swelling appears to be consistent with just being post having a left knee replacement. He has good distal pulses and negative Homans sign. Patient reports that he is aware to look out for signs of a DVT or pulmonary embolism. Reiterated the signs of this to the patient. He is to follow-up with his primary care provider and continue to follow instructions from his surgeon in regards to wound care. Informed to return to the emergency department if he develops worsening symptoms or the development of new symptoms. Patient acknowledges and verbalizes understanding of instructions and plan. 08/21/19 14:51 - Vital Signs Vital signs: Temp Pulse Resp BP Pulse Ox 98.9 F 87 16 131/67 H 94 08/20/19 08:04 08/20/19 08:04 08/20/19 08:04 08/20/19 08:04 08/20/19 08:04 Discharge - Discharge Clinical Impression: Presence of surgical incision Condition: Stable Disposition: HOME, SELF-CARE Instructions: Care of Stapled Wounds ([facility]) Additional Instructions: Please follow instructions for wound care provided by your surgeon. Please be advised that he may develop a pulmonary embolism or DVT. You are on prophylactic medication for this. I do not suspect that you have a DVT at this time. If you have any calf pain or increasing swelling please return to the emergency department. If you have worsening symptoms or the development of new symptoms please return to the emergency department. Please follow-up with your surgeon in 2 weeks. Referrals: [facility] [Primary [facility]] - Follow up as needed
== END 2019-08-20 10:53 | disposition home or self-care (01) ==
LOC: ER 08:00
DX: Z98.890 Other specified postprocedural states (principal)
CPT/HCPCS: 99283

== ENCOUNTER 2019-09-01 11:20 | Emergency (ER) | payer OTHER ==
[2019-09-01] MEDS ORDERED: OXYCODONE-ACETAMINOPHEN 5-325 MG TABLET PO ONE (12:09)
--- NOTE | 2019-09-01 12:11 | ER Document Report ---
ED Medical Screen (RME) - General Chief Complaint: Knee Injury Stated Complaint: FALL/LEFT KNEE PAIN Time Seen by Provider: 09/01/19 12:06 Primary Care Provider: [facility] [[facility]] - Follow up as needed Mode of Arrival: Wheelchair Information source: Patient Notes: 44-year-old male presented to ED for complaint of left knee pain. He states he had a left knee replacement [address] Fish. He states pain management had him on Dilaudid but he cannot take that anymore because it is making him sick. He states he is on Percocet 11/18/2024 and he has not had that today. He states he fell at 9 AM. I have given him 1 Percocet 06/18/2024 in the triage area will get x-ray and blood work and he will need to be reexamined and possibly consulted with Dr. Fish. I have greeted and performed a rapid initial assessment of this patient. A comprehensive ED assessment and evaluation of the patient, analysis of test results and completion of medical decision making process will be conducted by an additional ED providers. TRAVEL OUTSIDE OF THE [place] IN LAST 30 DAYS: No - Related Data Allergies/Adverse Reactions: bee venom protein (honey bee) Allergy (Severe, Verified 08/15/19 11:04) Anaphylaxis Past Medical History - Past Medical History Cardiac Medical History: Reports: Hx Hypertension Denies: Hx Atrial Fibrillation, Hx Congestive Heart Failure, Hx Coronary Artery Disease, Hx Heart Attack, Hx Hypercholesterolemia, Hx Peripheral Vascular Disease, Hx Heart Murmur Pulmonary Medical History: Reports: Hx Asthma Denies: Hx Bronchitis, Hx COPD, Hx Pneumonia, Hx Tuberculosis Neurological Medical History: Reports: Hx Migraine. Denies: Hx Cerebrovascular Accident, Hx Seizures, Hx Parkinson's Disease Endocrine Medical History: Denies: Hx Diabetes Mellitus Type 1, Hx Diabetes Mellitus Type 2 Renal/ Medical History: Reports: Hx Kidney Stones, Hx Renal Insufficiency. Denies: Hx End Stage Renal Disease, Hx Peritoneal Dialysis Malignancy Medical History: Denies Hx Lung Cancer GI Medical History: Reports: Hx Gastroesophageal Reflux Disease. Denies: Hx Crohn's Disease, Hx Hepatitis, Hx Hiatal Hernia, Hx Irritable Bowel, Hx Liver Failure, Hx Pancreatitis, Hx Ulcer Musculoskeltal Medical History: Reports Hx Arthritis, Denies Hx Fibromyalgia, Denies Hx Muscular Dystrophy Psychiatric Medical History: Reports: Hx Attention Deficit Hyperactivity Disorder, Hx Post Traumatic Stress Disorder Denies: Hx Bipolar Disorder, Hx Dementia, Hx Depression, Hx Schizophrenia Traumatic Medical History: Denies: Hx Fractures Infectious Medical History: Denies: Hx Hepatitis Past Surgical History: Reports: Hx Orthopedic Surgery - left knee X3, right knee, bilateral carpal tunnel, Other - Patient has cervical and surgery, left knee repair and right knee repair.. Denies: Hx Appendectomy, Hx Cholecystectomy, Hx Colostomy, Hx Pacemaker, Hx Tonsillectomy - Immunizations Hx Diphtheria, Pertussis, Tetanus Vaccination: Yes Physical Exam - Vital signs Vitals: Temp Pulse Resp BP Pulse Ox 98.2 F 79 16 119/77 100 09/01/19 11:26 09/01/19 11:26 09/01/19 11:09/01/19 11:09/01/19 11:26 Course - Vital Signs Vital signs: Temp Pulse Resp BP Pulse Ox 98.2 F 79 16 119/77 100 09/01/19 11:26 09/01/19 11:26 09/01/19 11:26 09/01/19 11:26 09/01/19 11:26 Doctor's Discharge - Discharge Referrals: [facility] [[facility]] - Follow up as needed
[2019-09-01 12:58] LABS: ABSOLUTE BASOPHILS # (AUTO) 0.1 10^3/uL (0.0-0.2); ABSOLUTE EOSINOPHILS # (AUTO) 0.1 10^3/uL (0.0-0.6); ABSOLUTE LYMPHOCYTES (AUTO) 1.3 10^3/uL (0.5-4.7); ABSOLUTE MONOCYTES (AUTO) 0.3 10^3/uL (0.1-1.4); ABSOLUTE NEUT (AUTO) 2.9 10^3/uL (1.7-8.2); BASOPHILS % (AUTO) 1.1 % (0-2); EOSINOPHILS % (AUTO) 2.7 % (0-6); HEMATOCRIT 35.7 % (37.9-51.0); HEMOGLOBIN 11.9 g/dL (13.5-17.0); LYMPHOCYTES % (AUTO) 27.7 % (13-45); MEAN CORPUSCULAR HEMOGLOBIN 30.4 pg (27.0-33.4); MEAN CORPUSCULAR HGB CONC 33.4 g/dL (32.0-36.0); MEAN CORPUSCULAR VOLUME 91 fl (80-97); MONOCYTES % (AUTO) 6.3 % (3-13); PLATELET COUNT 423 10^3/uL (150-450); RED BLOOD COUNT 3.91 10^6/uL (4.35-5.55); RED CELL DISTRIBUTION WIDTH 14.3 % (11.5-14.0); SEGMENTED NEUTROPHILS % (AUTO) 62.2 % (42-78); TOTAL CELLS COUNTED % (AUTO) 100 %; WHITE BLOOD COUNT 4.7 10^3/uL (4.0-10.5)
[2019-09-01 13:03] LABS: APPEARANCE,URINE SLIGHTLY-CLOUDY; BILIRUBIN,URINE NEGATIVE (NEGATIVE); COLOR,URINE YELLOW; GLUCOSE, URINE NEGATIVE (NEGATIVE); KETONES,URINE NEGATIVE (NEGATIVE); LEUKOCYTE ESTERASE,URINE TRACE (NEGATIVE); NITRITE,URINE NEGATIVE (NEGATIVE); PROTEIN,URINE 30 mg/dL (NEGATIVE); URINE SPECIFIC GRAVITY 1.033
--- NOTE | 2019-09-01 13:06 | RADIOLOGY REPORT (SQ) ---
EXAM DESCRIPTION: KNEE LEFT 4 VIEW IMAGES COMPLETED DATE/TIME: 09/01/2019 12:56 pm REASON FOR STUDY: Knee replacement 2 weeks ago fell this morning COMPARISON: 08/15/2019. NUMBER OF VIEWS: Four views. TECHNIQUE: AP, lateral, and both oblique radiographic images acquired of the left knee. LIMITATIONS: None. FINDINGS: MINERALIZATION: Normal. BONES: Intact hardware. No acute fracture or dislocation. No worrisome bone lesions. JOINT: No effusion. SOFT TISSUES: No soft tissue swelling. No radio-opaque foreign body. OTHER: No other significant finding. IMPRESSION: INTACT HARDWARE. NO RADIOGRAPHIC EVIDENCE OF ACUTE INJURY. TECHNICAL DOCUMENTATION: JOB ID: [id number] 2010 [employer]- All Rights Reserved Reading location - IP/workstation name: [email or web address]
[2019-09-01 13:14] LABS: ALBUMIN 4.2 g/dL (3.5-5.0); ALKALINE PHOSPHATASE 114 U/L (38-126); ANION GAP 7 (5-19); ASPARTATE AMINO TRANSFERASE 28 U/L (17-59); BLOOD UREA NITROGEN 13 mg/dL (7-20); CALCIUM 9.7 mg/dL (8.4-10.2); CARBON DIOXIDE 28 mmol/L (22-30); CHLORIDE 103 mmol/L (98-107); GLUCOSE 99 mg/dL (75-110); POTASSIUM 4.3 mmol/L (3.6-5.0); TOTAL PROTEIN 7.3 g/dL (6.3-8.2)
[2019-09-01] MEDS ORDERED: MORPHINE SULFATE 10 MG/ML INJ IM ONE (15:13)
--- NOTE | 2019-09-01 15:43 | ER Document Report ---
ED Extremity Problem, Lower - General Chief Complaint: Knee Injury Stated Complaint: FALL/LEFT KNEE PAIN Time Seen by Provider: 09/01/19 12:06 Primary Care Provider: TORY HERNÁNDEZ MD [ACTIVE STAFF] - 09/06/19 8:00 am [facility] [Primary Care Provider] - Follow up as needed Mode of Arrival: Wheelchair Information source: Patient, [facility] Records Notes: This 44-year-old male patient comes emergency room complaining of severe pain to his left knee. He had a left knee total arthroplasty on 08/15/2019. He has had problems with pain control since then. He reports this morning he tripped on his stairs and fell down 8 steps bouncing on his knee with his knee flexed the hallway down. Is complaining of severe pain and was concerned about injury to the surgery. He reports that the wound was torn open in 2 areas. Reviewed the records, the patient has been on chronic pain management for at least a few years receiving high-dose narcotic management. I suspect this is the reason the postop pain management has been an adequate. TRAVEL OUTSIDE OF THE [place] IN LAST 30 DAYS: No - Related Data Allergies/Adverse Reactions: bee venom protein (honey bee) Allergy (Severe, Verified 08/15/19 11:04) Anaphylaxis Home Medications: Lisinopril. Oxycodone. Dilauded Past Medical History - General Information source: Patient, [facility] Records - Social History Smoking Status: Never Smoker Cigarette use (# per day): No Chew tobacco use (# tins/day): No Smoking Education Provided: No Frequency of alcohol use: None Lives with: Spouse/Significant other Family History: Reviewed & Not Pertinent, CAD, Other - Kidney stones - Past Medical History Cardiac Medical History: Reports: Hx Hypertension Pulmonary Medical History: Reports: Hx Asthma Neurological Medical History: Reports: Hx Migraine Endocrine Medical History: Renal/ Medical History: Reports: Hx Kidney Stones, Hx Renal Insufficiency GI Medical History: Reports: Hx Gastroesophageal Reflux Disease Musculoskeletal Medical History: Reports Hx Arthritis Psychiatric Medical History: Reports: Hx Attention Deficit Hyperactivity Disorder, Hx Post Traumatic Stress Disorder Past Surgical History: Reports: Hx Abdominal Surgery - Gastric sleeve, Hx Orthopedic Surgery - Bilateral carpal tunnel. Left knee ACL repair x2, total knee arthroplasty, Other - Anterior cervical fusion. Bilateral ganglion cyst. - Immunizations Hx Diphtheria, Pertussis, Tetanus Vaccination: Yes Review of Systems - Review of Systems Constitutional: No symptoms reported EENT: No symptoms reported Cardiovascular: No symptoms reported Respiratory: No symptoms reported Gastrointestinal: No symptoms reported Genitourinary: No symptoms reported Musculoskeletal: See HPI, Joint pain Skin: No symptoms reported Hematologic/Lymphatic: No symptoms reported Neurological/Psychological: No symptoms reported Physical Exam - Vital signs Vitals: Temp Pulse Resp BP Pulse Ox 98.2 F 79 16 119/77 100 09/01/19 11:26 09/01/19 11:09/01/19 11:09/01/19 11:09/01/19 11:26 Interpretation: Normal - General General appearance: Alert, Anxious In distress: Mild - Complaining of severe pain to his knee, stating he is late for his next dose of pain medication. - HEENT Head: Normocephalic, Atraumatic Eyes: Normal Pupils: PERRL - Respiratory Respiratory status: No respiratory distress - Cardiovascular Rhythm: Regular - Abdominal Inspection: Normal - Back Back: Normal - Extremities General upper extremity: Normal inspection General lower extremity: Other - Left knee has a healing midline vertical surgical incision. There is a less than 5 mm long minimal separation of the superficial skin in the proximal wound and a slightly smaller separation in the superficial skin in the lower third of the wound. There is no drainage from either these areas of the surgical incision. - Neurological Neuro grossly intact: Yes - Psychological Associated symptoms: Anxious - Skin Skin Temperature: Warm Skin Moisture: Dry Skin Color: Normal Course - Vital Signs Vital signs: Temp Pulse Resp BP Pulse Ox 98.2 F 79 16 119/77 100 09/01/19 11:26 09/01/19 11:09/01/19 11:09/01/19 11:09/01/19 11:26 - Laboratory Result Diagrams: 09/01/19 12:30 09/01/19 12:30 Laboratory results interpreted by me: 09/01/19 09/01/19 12:30 12:30 RBC 3.91 L Hgb 11.9 L Hct 35.7 L RDW 14.3 H Urine Protein 30 H Urine Urobilinogen 2.0 H Ur Leukocyte Esterase TRACE H - Diagnostic Test Radiology reviewed: Image reviewed, Reports reviewed - X-ray left knee shows the recent total knee arthroplasty, hardware intact, no evidence of acute injury. - Consults Dr. Hernández Time consulted: 15:50 Consulted provider: follow-up in office - We will see in the office Thursday morning(09-06-19) at 0800. Discharge - Discharge Clinical Impression: Postoperative pain of left knee Contusion of left knee Qualifiers: Encounter type: initial encounter Qualified Code(s): S80.02XA - Contusion of left knee, initial encounter Condition: Stable Disposition: HOME, SELF-CARE Additional Instructions: The x-ray of your knee today did not show any injury to the hardware from your recent surgical procedure. The small wound openings on your knee appeared to be very superficial at this time. Keep the wounds clean and dressed with bacitracin and bandages. Use ice packs to your knee to help reduce or prevent swelling. Elevate your leg and knee all the time. Follow-up with Dr. Hernández in the office on 09/06/2019 at 8 AM for recheck. Follow-up with [facility] for any additional pain medication you might need. Referrals: [facility] [Primary Care [facility]] - Follow up as needed TORY HERNÁNDEZ MD [ACTIVE STAFF] - 09/06/19 8:00 am
[2019-09-01 16:14] VITALS: BP 132/85
== END 2019-09-01 16:10 | disposition home or self-care (01) ==
LOC: ER 11:20
DX: S80.02XA Contusion of left knee, initial encounter (principal); W10.9XXA Fall (on) (from) unspecified stairs and steps, initial encounter; Y92.009 Unspecified place in unspecified non-institutional (private) residence as the place of occurrence of the external cause; M25.562 Pain in left knee; G89.18 Other acute postprocedural pain; I10 Essential (primary) hypertension; J45.909 Unspecified asthma, uncomplicated; G89.29 Other chronic pain; Z79.891 Long term (current) use of opiate analgesic; Z79.899 Other long term (current) drug therapy; Z96.652 Presence of left artificial knee joint; Z87.892 Personal history of anaphylaxis; Z91.030 Bee allergy status; Z98.84 Bariatric surgery status
CPT/HCPCS: 99283; 96372; 36415; 85025; 80053; 81001; 73564; J2270

== ENCOUNTER 2019-10-03 10:21 | Day surgery (SDC) | payer OTHER ==
[2019-09-29 11:53] LABS: HEMATOCRIT 39.6 % (37.9-51.0); HEMOGLOBIN 13.2 g/dL (13.5-17.0); MEAN CORPUSCULAR HEMOGLOBIN 31.2 pg (27.0-33.4); MEAN CORPUSCULAR HGB CONC 33.3 g/dL (32.0-36.0); MEAN CORPUSCULAR VOLUME 94 fl (80-97); PLATELET COUNT 266 10^3/uL (150-450); RED BLOOD COUNT 4.23 10^6/uL (4.35-5.55); WHITE BLOOD COUNT 4.3 10^3/uL (4.0-10.5)
[2019-09-29 12:01] LABS: APPEARANCE,URINE CLEAR; BILIRUBIN,URINE NEGATIVE (NEGATIVE); COLOR,URINE YELLOW; GLUCOSE, URINE NEGATIVE (NEGATIVE); KETONES,URINE NEGATIVE (NEGATIVE); LEUKOCYTE ESTERASE,URINE NEGATIVE (NEGATIVE); NITRITE,URINE NEGATIVE (NEGATIVE); PROTEIN,URINE NEGATIVE (NEGATIVE); URINE SPECIFIC GRAVITY 1.015
[2019-09-29 12:17] LABS: ANION GAP 6 (5-19); BLOOD UREA NITROGEN 8 mg/dL (7-20); CALCIUM 9.7 mg/dL (8.4-10.2); CARBON DIOXIDE 31 mmol/L (22-30); CHLORIDE 100 mmol/L (98-107); GLUCOSE 91 mg/dL (75-110); POTASSIUM 4.3 mmol/L (3.6-5.0)
[~2019-10-03 10:21] MED LIST changes: -BUPIVACAINE INJ/PF LIPOSOME/PF 266 MG/20 ML SDV INJ PRN; +CEFAZOLIN 2 GM/D5W RTU 2 GM/50 ML RTUPB IV PRN; -CEFAZOLIN INJ 1 GM VIAL IV PRN; -DEXAMETHASONE SOD PHOSPHATE INJ 4 MG/1 ML VIAL ONE; -FENTANYL CITRATE INJ/PF 100 MCG/2 ML AMPUL ONE; -IBUPROFEN 800 MG in NORMAL SALINE 250 ML IV PRN; -LACTATED RINGERS 1000 ML IV PRN; -LIDOCAINE 0.5% INJ-PF (5 MG/ML) 50 ML SDV SUBCUT PRN; -MIDAZOLAM 2 MG/2 ML INJ ONE; -ONDANSETRON HCL INJ/PF 4 MG/2 ML SDV ONE; -OXYCODONE HCL SR 10 MG TABLET PO PRN; -PANTOPRAZOLE SODIUM 20 MG TABLET.DR PO PRN; -PROPOFOL INJ 200 MG/20 ML VIAL IV ONE; -TRANEXAMIC ACID INJ/PF 1,000 MG/10 ML SDV ONE; -VANCOMYCIN HCL 1,000 MG in DEXTROSE 5%-WATER 250 ML IV PRN
[2019-10-03] MEDS ORDERED: CEFAZOLIN 2 GM/D5W RTU 2 GM/50 ML RTUPB IV ONE (10:51)
[2019-10-03] MEDS ORDERED: LIDOCAINE 2% INJ-PF (20 MG/ML) 10 ML AMPUL ONE (13:31)
[2019-10-03] MEDS ORDERED: PROPOFOL INJ 200 MG/20 ML VIAL IV ONE (13:31)
--- NOTE | 2019-10-03 14:01 | Operative Report ---
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 It is then manipulated to increase the range of motion from approximately 3 to 120 degrees. This range of motion is also documented photographically. The patient is returned to the PACU in satisfactory condition.
[2019-10-03] MEDS ORDERED: FENTANYL CITRATE INJ/PF 100 MCG/2 ML AMPUL ONE (14:03)
--- NOTE | 2019-10-03 14:03 | Discharge Summary ---
Discharge Summary (SDC) - Discharge Final Diagnosis: Arthrofibrosis left knee Date of Surgery: 10/03/19 Discharge Date: 10/03/19 Condition: Good Forms: ASU Anesthesia D/C Instruction, Discharge POC-Surgical Service Treatment or Instructions: Activity as tolerated. Continue aggressive physical therapy to maintain the range of motion that is been obtained. Referrals: TORY HERNÁNDEZ MD [ACTIVE STAFF] - 10/18/19 8:15 am (Please keep your follow-up appointment.) Discharge Diet: Regular Respiratory Treatments at Home: Deep Breathing/Coughing Discharge Activity: Activity As Tolerated Activities Provided by Home Health Agency: Physical Therapy Report the Following to Your Physician Immediately: Shortness of Breath
[2019-10-03] MEDS ORDERED: HYDROCODONE/ACETAMINOPHEN 7.5-325 MG TABLET ONE (14:09)
[2019-10-03 15:49] VITALS: BP 146/96
== END 2019-10-03 15:40 | disposition home or self-care (01) ==
LOC: OROUT 10:21
PROVIDERS: ATTEND Orthopaedic Surgery
DX: M24.662 Ankylosis, left knee (principal); M25.562 Pain in left knee; Z96.652 Presence of left artificial knee joint; I10 Essential (primary) hypertension; E66.01 Morbid (severe) obesity due to excess calories; Z79.899 Other long term (current) drug therapy
CPT/HCPCS: 36415; 85027; 87635; 80048; 81001; 27599; J3010; J2704; J3490; J0690; C9803; 1380

== ENCOUNTER 2019-11-14 08:01 | Inpatient (IN) | payer OTHER ==
[2019-11-10 12:17] LABS: APPEARANCE,URINE CLEAR; BILIRUBIN,URINE NEGATIVE (NEGATIVE); COLOR,URINE YELLOW; GLUCOSE, URINE NEGATIVE (NEGATIVE); KETONES,URINE NEGATIVE (NEGATIVE); LEUKOCYTE ESTERASE,URINE NEGATIVE (NEGATIVE); NITRITE,URINE NEGATIVE (NEGATIVE); PROTEIN,URINE 30 mg/dL (NEGATIVE); URINE SPECIFIC GRAVITY 1.024; UROBILINOGEN,URINE NEGATIVE mg/dL (<2.0)
[2019-11-10 12:19] LABS: HEMATOCRIT 39.6 % (37.9-51.0); HEMOGLOBIN 13.5 g/dL (13.5-17.0); MEAN CORPUSCULAR HEMOGLOBIN 31.6 pg (27.0-33.4); MEAN CORPUSCULAR HGB CONC 34.1 g/dL (32.0-36.0); MEAN CORPUSCULAR VOLUME 93 fl (80-97); PLATELET COUNT 281 10^3/uL (150-450); RED BLOOD COUNT 4.28 10^6/uL (4.35-5.55); RED CELL DISTRIBUTION WIDTH 13.7 % (11.5-14.0); WHITE BLOOD COUNT 10.2 10^3/uL (4.0-10.5)
[2019-11-10 12:45] LABS: ANION GAP 9 (5-19); BLOOD UREA NITROGEN 12 mg/dL (7-20); CALCIUM 9.4 mg/dL (8.4-10.2); CARBON DIOXIDE 29 mmol/L (22-30); CHLORIDE 99 mmol/L (98-107); GLUCOSE 88 mg/dL (75-110); POTASSIUM 4.2 mmol/L (3.6-5.0)
[~2019-11-14 08:01] MED LIST changes: +BUPIVACAINE INJ/PF LIPOSOME/PF 266 MG/20 ML SDV INJ PRN; -CEFAZOLIN 2 GM/D5W RTU 2 GM/50 ML RTUPB IV PRN; +CEFAZOLIN INJ 1 GM VIAL IV PRN; +FENTANYL CITRATE INJ/PF 100 MCG/2 ML AMPUL ONE; +IBUPROFEN 800 MG in NORMAL SALINE 250 ML IV PRN; +LACTATED RINGERS 1000 ML IV PRN; +LIDOCAINE 0.5% INJ-PF (5 MG/ML) 50 ML SDV SUBCUT PRN; +MIDAZOLAM 2 MG/2 ML INJ ONE; +ONDANSETRON HCL INJ/PF 4 MG/2 ML SDV ONE; +OXYCODONE HCL SR 10 MG TABLET PO PRN; +PANTOPRAZOLE SODIUM 20 MG TABLET.DR PO PRN; +PROPOFOL INJ 200 MG/20 ML VIAL IV ONE; +TRANEXAMIC ACID INJ/PF 1,000 MG/10 ML SDV ONE; +VANCOMYCIN HCL 1,000 MG in DEXTROSE 5%-WATER 250 ML IV PRN
[2019-11-14] MEDS ORDERED: OXYCODONE HCL SR 10 MG TABLET PO ONE (08:27)
[2019-11-14] MEDS ORDERED: CEFAZOLIN INJ 1 GM VIAL ONE (08:27)
[2019-11-14] MEDS ORDERED: PANTOPRAZOLE SODIUM 20 MG TABLET.DR PO ONE (08:27)
[2019-11-14] MEDS ORDERED: SUCCINYLCHOLINE CHLORIDE INJ 200 MG/10 ML VIAL ONE (08:56)
[2019-11-14] MEDS ORDERED: MIDAZOLAM 2 MG/2 ML INJ ONE (09:06)
[2019-11-14] MEDS ORDERED: ONDANSETRON HCL INJ/PF 4 MG/2 ML SDV IV PRN ×2 (10:24→11:08)
[2019-11-14] MEDS ORDERED: FENTANYL CITRATE INJ/PF 100 MCG/2 ML AMPUL IV PRN ×3 (10:24)
[2019-11-14] MEDS ORDERED: PROMETHAZINE HCL INJ 25 MG/1 ML VIAL IV PRN ×2 (10:24)
[2019-11-14] MEDS ORDERED: DIPHENHYDRAMINE HCL 50 MG/ML VIAL IV PRN ×2 (10:24→11:08)
[2019-11-14] MEDS ORDERED: MEPERIDINE HCL/PF INJ 25 MG/1 ML DISP.SYRIN IV PRN (10:24)
--- NOTE | 2019-11-14 11:07 | Operative Report ---
Operative Report DATE OF SURGERY: 11/14/19 PREOPERATIVE DIAGNOSIS: Right knee arthritis OPERATION: Right knee arthroplasty SURGEON: TORY HERNÁNDEZ ANESTHESIA: GA TISSUE REMOVED OR ALTERED: Bone to pathology ESTIMATED BLOOD LOSS: 75 PROCEDURE: Implants used: Femur: Valera triathlon size 7 CR uncemented femur Tibia: 6 uncemented tibia Tibial liner: 9 mm CS insert Patella: 38 mm uncemented patella Procedure with the patient supine on the operating table the right the limb is prepped and draped in a sterile fashion. The limb was elevated for exsanguination and the tourniquet inflated to 280 torr. A standard midline median parapatellar approach the knee is taken. Access is gained to the femoral canal through the intercondylar notch. Intramedullary alignment instrumentation used to resect 10 mm of distal femur in 5 of valgus. Sizing guide indicated a size 7 femur. Appropriate cutting jig is then used to fashion anterior posterior and chamfer cuts. A trial reduction femurs performed and this is judged to be adequate. Attention was next turned to the tibia. Using an extra medullary alignment system 9 millimeters was resected off the lateral tibial plateau. This is sized to a size 6 tibia. A trial reduction was now performed with a 7 femur and a X tibia using a 9 millimeters spacer. It is full extension and central patellofemoral tracking. The articular surface the patella was next resected using an oscillating saw. All trial implants were removed. Above implants are impacted into position. The tourniquet was deflated hemostasis obtained the wound is then closed in layers using interrupted Vicryl followed by terry. A sterile compressive dressing was applied and the patient returned to recovery room in satisfactory condition.
[2019-11-14] MEDS ORDERED: ONDANSETRON 4 MG TAB.RAPDIS PO PRN (11:08)
[2019-11-14] MEDS ORDERED: RINGERS SOLUTION,LACTATED 1,000 ML IV PRN (11:08)
[2019-11-14] MEDS ORDERED: MAG HYDROX/AL HYDROX/SIMETH SUSP 30 ML UDCUP PO PRN (11:08)
[2019-11-14] MEDS ORDERED: TRANEXAMIC ACID INJ/PF 1,000 MG/10 ML SDV IV ONE (11:08)
[2019-11-14] MEDS ORDERED: ZOLPIDEM TARTRATE 5 MG TABLET PO PRN (11:08)
[2019-11-14] MEDS ORDERED: ROPIVACAINE HCL 0.5% INJ/PF (5 MG/1 ML) 30 ML SDV ONE (11:10)
[2019-11-14] MEDS: HYDROMORPHONE HCL INJ/PF 2 MG/ML AMPULE ONE ×4 (11:52→12:07)
[2019-11-14] MEDS: FENTANYL CITRATE INJ/PF 100 MCG/2 ML AMPUL ONE ×2 (12:12→12:17)
[2019-11-14] MEDS: ACETAMINOPHEN 325 MG TABLET PO PRN ×2 (13:24→17:30)
[2019-11-14] MEDS: OXYCODONE HCL IR 5 MG TABLET PO PRN ×2 (13:25→19:45)
--- NOTE | 2019-11-14 13:35 | RADIOLOGY REPORT (SQ) ---
EXAM DESCRIPTION: KNEE RIGHT 2 VIEWS IMAGES COMPLETED DATE/TIME: 11/14/2019 12:36 pm REASON FOR STUDY: Post OP -Long Cassette in PACU M17.11 UNILATERAL PRIMARY OSTEOARTHRITIS, RIGHT KN EE COMPARISON: None. NUMBER OF VIEWS: Two views. TECHNIQUE: AP and lateral radiographic images acquired of the right knee. LIMITATIONS: None. FINDINGS: MINERALIZATION: Normal. BONES: Status post TKA; the hardware is in anatomic alignment. There is no periprosthetic fracture. JOINT: Subcutaneous and intra-articular emphysema. SOFT TISSUES: Surgical cutaneous terry and heterotopic ossification lateral to the proximal fibula. OTHER: No other finding. IMPRESSION: Uncomplicated TKA hardware with expected immediate postoperative findings. TECHNICAL DOCUMENTATION: JOB ID: [id number] 2010 [employer]- All Rights Reserved Reading location - IP/workstation name: [email or web address]
[2019-11-14] MEDS: IBUPROFEN 800 MG in NORMAL SALINE 250 ML IV SCH ×2 (14:00→21:06)
[2019-11-14] MEDS: SENNOSIDES/DOCUSATE 8.6-50 MG 1 EACH TABLET PO SCH (17:27)
[2019-11-14] MEDS: OXYCODONE HCL SR 10 MG TABLET PO SCH (21:07)
[2019-11-14] MEDS: QUETIAPINE FUMARATE 100 MG TABLET PO SCH (21:07)
[2019-11-14] MEDS: PREGABALIN 75 MG CAPSULE PO SCH (21:07)
[2019-11-14] MEDS ORDERED: VANCOMYCIN HCL 1,000 MG in DEXTROSE 5%-WATER 250 ML IV ONE (23:00)
[2019-11-15] MEDS: OXYCODONE HCL IR 5 MG TABLET PO PRN ×5 (01:45→19:50)
[2019-11-15] MEDS: PANTOPRAZOLE SODIUM 20 MG TABLET.DR PO SCH (05:07)
[2019-11-15] MEDS: IBUPROFEN 800 MG in NORMAL SALINE 250 ML IV SCH ×3 (05:07→21:54)
[2019-11-15 07:05] LABS: HEMATOCRIT 35.9 % (37.9-51.0); HEMOGLOBIN 12.2 g/dL (13.5-17.0); MEAN CORPUSCULAR HEMOGLOBIN 31.2 pg (27.0-33.4); MEAN CORPUSCULAR VOLUME 92 fl (80-97); PLATELET COUNT 221 10^3/uL (150-450); RED BLOOD COUNT 3.91 10^6/uL (4.35-5.55); RED CELL DISTRIBUTION WIDTH 13.7 % (11.5-14.0); WHITE BLOOD COUNT 7.6 10^3/uL (4.0-10.5)
[2019-11-15 07:26] LABS: ANION GAP 8 (5-19); BLOOD UREA NITROGEN 14 mg/dL (7-20); CALCIUM 8.6 mg/dL (8.4-10.2); CARBON DIOXIDE 26 mmol/L (22-30); CHLORIDE 100 mmol/L (98-107); GLUCOSE 128 mg/dL (75-110); POTASSIUM 4.4 mmol/L (3.6-5.0)
--- NOTE | 2019-11-15 07:42 | PDOC DISCHARGE SUMMARY ---
Impression - Admit/DC Date/PCP Admission Date/Primary Care Provider: 11/14/19 08:01 [facility] Discharge Date: 11/15/19 - Additional Information Referrals: TORY HERNÁNDEZ MD [ACTIVE STAFF] - 11/29/19 8:15 am Prescriptions: Oxycodone HCl [Oxaydo] 5 mg PO Q8 PRN #10 tablet.orl PRN Reason: Home Medications: Lisinopril [Prinivil 10 mg Tablet] 20 mg PO DAILY 05/13/18 Omeprazole 20 mg PO DAILY 03/07/19 Quetiapine Fumarate [Seroquel] 200 mg PO QHS 08/10/19 Oxycodone HCl [Oxycodone HCl ER] 10 mg PO QID PRN 11/14/19 Oxycodone HCl [Oxaydo] 5 mg PO Q8 PRN #10 tablet.orl 11/15/19 History of Present Illiness History of Present Illness: GOLDY GREEN is a 44 year old male with history of bilateral knee arthrosis. Patient underwent left total knee arthroplasty in the past. He did well with it after extensive therapy. At that point decision was made to proceed with operative intervention of the right knee Hospital Course Hospital Course: Patient underwent right total knee arthroplasty on 11/14/2019. Patient tolerated procedure well. No issues postop fully. Did develop postoperative pain requiring increase of his oxycodon to 10 mg which he takes regularly. Also was given morphine on a as needed basis. Otherwise patient had no issues overnight. Denies chest pain or shortness of breath. Underwent physical therapy on postop day 0 and postop day #1 with acceptable results. At that point decision was made for discharge to home. Physical Exam Vital Signs: Temp Pulse Resp BP Pulse Ox 98.3 F 89 17 106/64 98 11/14/19 23:51 11/14/19 23:51 11/14/19 23:51 11/14/19 23:51 11/14/19 23:51 Intake & Output 11/14/19 11/15/19 11/16/19 06:59 06:59 06:59 Intake Total 3550 Output Total 1200 Balance 2350 Weight 103.8 kg General appearance: PRESENT: no acute distress, well-developed, well-nourished Head exam: PRESENT: atraumatic, normocephalic Eye exam: PRESENT: conjunctiva pink, EOMI, PERRLA. ABSENT: scleral icterus Ear exam: PRESENT: normal external ear exam Mouth exam: PRESENT: moist, tongue midline Neck exam: ABSENT: carotid bruit, JVD, lymphadenopathy, thyromegaly Respiratory exam: PRESENT: clear to auscultation parviz. ABSENT: rales, rhonchi, wheezes Cardiovascular exam: PRESENT: RRR. ABSENT: diastolic murmur, rubs, systolic murmur Pulses: PRESENT: normal dorsalis pedis pul Vascular exam: PRESENT: normal capillary refill GI/Abdominal exam: PRESENT: normal bowel sounds, soft. ABSENT: distended, guarding, mass, organolmegaly, rebound, tenderness Rectal exam: PRESENT: deferred Extremities exam: PRESENT: full ROM. ABSENT: calf tenderness, clubbing, pedal edema Musculoskeletal exam: PRESENT: other - Right knee: Dressing clean/dry/intact no erythema or drainage. Moderate thigh swelling without change, intact plantarflexion/dorsiflexion. No sensory deficits. No calf tenderness. Neurological exam: PRESENT: alert, awake, oriented to person, oriented to place, oriented to time, oriented to situation, CN II-XII grossly intact. ABSENT: motor sensory deficit Psychiatric exam: PRESENT: appropriate affect, normal mood. ABSENT: homicidal ideation, suicidal ideation Skin exam: PRESENT: dry, intact, warm. ABSENT: cyanosis, rash Results Laboratory Results: WBC 7.6 10^3/uL (4.0-10.5) 11/15/19 06:48 RBC 3.91 10^6/uL (4.35-5.55) L 11/15/19 06:48 Hgb 12.2 g/dL (13.5-17.0) L 11/15/19 06:48 Hct 35.9 % (37.9-51.0) L 11/15/19 06:48 MCV 92 fl (80-97) 11/15/19 06:48 MCH 31.2 pg (27.0-33.4) 11/15/19 06:48 MCHC 34.0 g/dL (32.0-36.0) 11/15/19 06:48 RDW 13.7 % (11.5-14.0) 11/15/19 06:48 Plt Count 221 10^3/uL (150-450) 11/15/19 06:48 Sodium 133.7 mmol/L (137-145) L 11/15/19 06:48 Potassium 4.4 mmol/L (3.6-5.0) 11/15/19 06:48 Chloride 100 mmol/L (98-107) 11/15/19 06:48 Carbon Dioxide 26 mmol/L (22-30) 11/15/19 06:48 Anion Gap 8 (5-19) 11/15/19 06:48 BUN 14 mg/dL (7-20) 11/15/19 06:48 Creatinine 1.26 mg/dL (0.52-1.25) H 11/15/19 06:48 Est GFR ( Amer) > 60 (>60) 11/15/19 06:48 Est GFR (MDRD) Non-Af > 60 (>60) 11/15/19 06:48 Glucose 128 mg/dL (75-110) H 11/15/19 06:48 Calcium 8.6 mg/dL (8.4-10.2) 11/15/19 06:48 Urine Color YELLOW 11/10/19 10:54 Urine Appearance CLEAR 11/10/19 10:54 Urine pH 5.0 (5.0-9.0) 11/10/19 10:54 Ur Specific [place] 1.024 11/10/19 10:54 Urine Protein 30 mg/dL (NEGATIVE) H 11/10/19 10:54 Urine Glucose (UA) NEGATIVE mg/dL (NEGATIVE) 11/10/19 10:54 Urine Ketones NEGATIVE mg/dL (NEGATIVE) 11/10/19 10:54 Urine Blood NEGATIVE (NEGATIVE) 11/10/19 10:54 Urine Nitrite NEGATIVE (NEGATIVE) 11/10/19 10:54 Urine Bilirubin NEGATIVE (NEGATIVE) 11/10/19 10:54 Urine Urobilinogen NEGATIVE mg/dL (<2.0) 11/10/19 10:54 Ur Leukocyte Esterase NEGATIVE (NEGATIVE) 11/10/19 10:54 Urine WBC (Auto) 1 /HPF 11/10/19 10:54 Urine RBC (Auto) 1 /HPF 11/10/19 10:54 Urine Mucus (Auto) MOD /LPF 11/10/19 10:54 Urine Ascorbic Acid 40 (NEGATIVE) H 11/10/19 10:54 COVID-19 Source See comment 11/10/19 11:05 COVID-19 (SKYLAR) Not Detected (Not Detect) 11/10/19 11:05 Impressions: Knee X-Ray 11/14/19 11:09 IMPRESSION: Uncomplicated TKA hardware with expected immediate postoperative findings. Plan Plan of Treatment: Discharge home with enteric-coated aspirin for DVT prophylaxis and oxycodone for pain control. We will continue with outpatient physical therapy. Stroke Is this a Stroke Patient?: No Acute Heart Failure Is this a Heart Failure Patient?: No
[2019-11-15] MEDS: MORPHINE SULFATE 10 MG/ML INJ IV PRN ×4 (08:01→21:54)
[2019-11-15] MEDS: ASPIRIN 81 MG TABLET, ENT COATED PO SCH (09:04)
[2019-11-15] MEDS: SENNOSIDES/DOCUSATE 8.6-50 MG 1 EACH TABLET PO SCH ×2 (09:04→17:22)
[2019-11-15] MEDS: LISINOPRIL 10 MG TABLET PO SCH (09:04)
[2019-11-15] MEDS: PRENATAL VITAMIN W DHA CAPSULE PO SCH (09:04)
[2019-11-15] MEDS: OXYCODONE HCL SR 10 MG TABLET PO SCH ×2 (09:04→21:53)
[2019-11-15] MEDS: PREGABALIN 75 MG CAPSULE PO SCH ×2 (09:04→21:54)
[2019-11-15] MEDS: QUETIAPINE FUMARATE 100 MG TABLET PO SCH (21:56)
[2019-11-16] MEDS: MORPHINE SULFATE 10 MG/ML INJ IV PRN (05:18)
[2019-11-16] MEDS: PANTOPRAZOLE SODIUM 20 MG TABLET.DR PO SCH (05:19)
[2019-11-16] MEDS: OXYCODONE HCL IR 5 MG TABLET PO PRN ×2 (05:19)
[2019-11-16] MEDS: IBUPROFEN 800 MG in NORMAL SALINE 250 ML IV SCH (05:19)
[2019-11-16 06:52] LABS: HEMATOCRIT 34.4 % (37.9-51.0); HEMOGLOBIN 11.7 g/dL (13.5-17.0); MEAN CORPUSCULAR HEMOGLOBIN 31.4 pg (27.0-33.4); MEAN CORPUSCULAR HGB CONC 34.1 g/dL (32.0-36.0); MEAN CORPUSCULAR VOLUME 92 fl (80-97); PLATELET COUNT 204 10^3/uL (150-450); RED BLOOD COUNT 3.73 10^6/uL (4.35-5.55); RED CELL DISTRIBUTION WIDTH 14.1 % (11.5-14.0); WHITE BLOOD COUNT 7.7 10^3/uL (4.0-10.5)
--- NOTE | 2019-11-16 08:03 | PDOC PROGRESS REPORT ---
Subjective Progress Note for:: 11/16/19 Subjective:: Patient doing well this morning. Pain currently controlled. Has performed well with physical therapy yesterday. Reason For Visit: M17.11 UNILATERAL PRIMARY OSTEOARTHRITIS, RIGHT KN Physical Exam Vital Signs: Temp Pulse Resp BP Pulse Ox 98.8 F 101 H 18 157/84 H 99 11/15/19 19:39 11/15/19 19:39 11/15/19 19:39 11/15/19 19:39 11/15/19 19:39 Intake & Output 11/15/19 11/16/19 11/17/19 06:59 06:59 06:59 Intake Total 3550 2500 Output Total 1200 1200 Balance 2350 1300 Weight 103.8 kg 103.8 kg Physical Exam: No acute distress, alert and oriented x3 Right lower extremity -Pulses 2+ distally -Compartments soft -Sensation grossly intact to L3-4-5 S1 -Motor grossly intact to EHL TA gastroc and quad Dressing clean dry and intact Results Laboratory Results: 11/16/19 06:14 11/15/19 06:48 11/16/19 06:14 WBC 7.7 RBC 3.73 L Hgb 11.7 L Hct 34.4 L MCV 92 MCH 31.4 MCHC 34.1 RDW 14.1 H Plt Count 204 Impressions: Knee X-Ray 11/14/19 11:09 IMPRESSION: Uncomplicated TKA hardware with expected immediate postoperative findings. Assessment & Plan - Diagnosis (1) History of total right knee replacement Is this a current diagnosis for this admission?: Yes Plan: -Plan for discharge home today. -Weightbearing as tolerated, no precautions, encourage out of bed TURNER for ADL training - PT/OT - Keep knee extended in bed, rolled towel under the ankle to obtain full extensi on -aspirin 325 daily for DVT prophylaxis for 6 weeks -multimodal pain management to avoid excessive narcotics, including gabapentin, tramadol, Toradol, acetaminophen. -Dressing should not be removed for 7 to 10 days until seen in the office -May shower with the dressing intact, if it starts to come off she should not get the incision wet. -Follow-up with Dr. Adolfo Fish, orthopedic surgeon at [facility] for surgery, in 10 days. Call for an appointment. . [address], [place] [address] - Time Time Spent with patient: Less than 15 minutes
[2019-11-16 09:06] VITALS: BP 119/65
[2019-11-16] MEDS: OXYCODONE HCL SR 10 MG TABLET PO SCH (10:09)
[2019-11-16] MEDS: PRENATAL VITAMIN W DHA CAPSULE PO SCH (10:09)
[2019-11-16] MEDS: LISINOPRIL 10 MG TABLET PO SCH (10:09)
[2019-11-16] MEDS: PREGABALIN 75 MG CAPSULE PO SCH (10:09)
[2019-11-16] MEDS: SENNOSIDES/DOCUSATE 8.6-50 MG 1 EACH TABLET PO SCH (10:09)
[2019-11-16] MEDS: ASPIRIN 81 MG TABLET, ENT COATED PO SCH (10:09)
== END 2019-11-16 11:06 | disposition home or self-care (01) | DRG 470 ==
LOC: INOR 08:01 → 4S 12:52
PROVIDERS: ADMIT Orthopaedic Surgery; ATTEND Orthopaedic Surgery
PROC: 0SRC0JA Replacement of Right Knee Joint with Synthetic Substitute, Uncemented, Open Approach (ICD-10-PCS; principal; 2019-11-14 10:00)
DX: M17.11 Unilateral primary osteoarthritis, right knee (principal); Z03.818 Encounter for observation for suspected exposure to other biological agents ruled out; Z96.652 Presence of left artificial knee joint; Z91.030 Bee allergy status
CPT/HCPCS: 01402; 36415; 80048; 81001; 85027; 87635; 88305; 88311; 94799; C1776; C9803; J0330; J0690; J1170; J1741; J2250; J2270; J2405; J2704; J2795; J3010; J3370; J3490; J7050; J7060; S0119

== ENCOUNTER 2019-11-24 21:08 | Emergency (ER) | payer OTHER ==
[2019-11-24] MEDS ORDERED: HYDROMORPHONE HCL 2 MG TABLET PO ONE (21:25)
--- NOTE | 2019-11-24 21:28 | ER Document Report ---
ED Medical Screen (RME) - General Chief Complaint: Post Surgical Pain Stated Complaint: POST SURGICAL KNEE PAIN Time Seen by Provider: 11/24/19 21:20 Primary Care Provider: NICOLE GONZALES [Primary Care Provider] - Follow up as needed Notes: Patient reports having a total knee replacement surgery 11/14/2019. Patient reports increased knee pain today. Patient has been taking his Percocet tens every 4 hours although he has run out of his breakthrough Dilaudid that he previously had taken for his arthritis. Patient without any fever. Patient denies any cough or cold symptoms. Patient states the pain makes him feel short of breath. Patient does complain of swelling to the right knee as well. I have greeted and performed a rapid initial assessment of this patient. A comprehensive ED assessment and evaluation of the patient, analysis of test results and completion of the medical decision making process will be conducted by additional ED providers. TRAVEL OUTSIDE OF THE [place] IN LAST 30 DAYS: No - Related Data Allergies/Adverse Reactions: bee venom protein (honey bee) Allergy (Severe, Verified 10/03/19 11:03) Anaphylaxis acetaminophen [From Percocet] Allergy (Verified 10/03/19 11:03) Hives oxycodone [From Percocet] Allergy (Verified 10/03/19 11:03) Hives Past Medical History - Past Medical History Cardiac Medical History: Reports: Hx Hypertension Denies: Hx Atrial Fibrillation, Hx Congestive Heart Failure, Hx Coronary Artery Disease, Hx Heart Attack, Hx Hypercholesterolemia, Hx Peripheral Vascular Disease, Hx Heart Murmur Pulmonary Medical History: Reports: Hx Asthma Denies: Hx Bronchitis, Hx COPD, Hx Pneumonia, Hx Tuberculosis Neurological Medical History: Reports: Hx Migraine. Denies: Hx Cerebrovascular Accident, Hx Seizures, Hx Parkinson's Disease Endocrine Medical History: Denies: Hx Diabetes Mellitus Type 1, Hx Diabetes Mellitus Type 2 Renal/ Medical History: Reports: Hx Kidney Stones, Hx Renal Insufficiency. Denies: Hx End Stage Renal Disease, Hx Peritoneal Dialysis Malignancy Medical History: Denies Hx Lung Cancer GI Medical History: Reports: Hx Gastroesophageal Reflux Disease. Denies: Hx Crohn's Disease, Hx Hepatitis, Hx Hiatal Hernia, Hx Irritable Bowel, Hx Liver Failure, Hx Pancreatitis, Hx Ulcer Musculoskeltal Medical History: Reports Hx Arthritis, Denies Hx Fibromyalgia, Denies Hx Muscular Dystrophy Psychiatric Medical History: Reports: Hx Attention Deficit Hyperactivity Disorder, Hx Post Traumatic Stress Disorder Denies: Hx Bipolar Disorder, Hx Dementia, Hx Depression, Hx Schizophrenia Traumatic Medical History: Denies: Hx Fractures Infectious Medical History: Denies: Hx Hepatitis Past Surgical History: Reports: Hx Orthopedic Surgery - left knee X3, right knee, bilateral carpal tunnel, Other - Patient has cervical and surgery, left knee repair and right knee repair.. Denies: Hx Appendectomy, Hx Bowel Surgery, Hx Cholecystectomy, Hx Colostomy, Hx Gastric Bypass Surgery, Hx Pacemaker, Hx Tonsillectomy - Immunizations Hx Diphtheria, Pertussis, Tetanus Vaccination: Yes Physical Exam - Vital signs Vitals: Temp Pulse Resp BP Pulse Ox 99.1 F 99 22 H 140/75 H 97 11/24/19 21:16 11/24/19 21:16 11/24/19 21:16 11/24/19 21:16 11/24/19 21:16 - General General appearance: Alert, Anxious In distress: Mild Notes: Right knee pain with swelling Course - Re-evaluation Re-evalutation: 11/24/19 21:27 ESTHER Guardado notified legal secretary of need for Doppler. 11/24/19 21:28 - Vital Signs Vital signs: Temp Pulse Resp BP Pulse Ox 99.1 F 99 22 H 140/75 H 97 11/24/19 21:16 11/24/19 21:16 11/24/19 21:16 11/24/19 21:16 11/24/19 21:16 Doctor's Discharge - Discharge [facility]errals: [facility] [[facility]] - Follow up as needed
--- NOTE | 2019-11-24 22:15 | RADIOLOGY REPORT (SQ) ---
XR CHEST 1 VIEW HISTORY: sob. COMPARISON: 08/10/2019 FINDINGS: The heart size is within normal limits. There is no pulmonary vascular congestion. No consolidation, pleural effusion, or pneumothorax is seen. No acute bony findings are seen. IMPRESSION: No evidence of acute cardiopulmonary disease.
--- NOTE | 2019-11-24 22:35 | RADIOLOGY REPORT (SQ) ---
INDICATION: RLE pain. PROCEDURE: Real-time grayscale, color, and pulse Doppler ultrasound imaging of the right lower extremity deep venous system was performed. 40 images. COMPARISON: None FINDINGS: The common femoral, superficial femoral, and popliteal veins demonstrate normal compressibility, phasic flow, augmentation and moser scale evaluation. There is no evidence of intraluminal thrombus . The visualized deep calf veins appear patent. IMPRESSION: No evidence for acute deep venous thrombus from the common femoral to the popliteal veins.
[2019-11-25 05:43] LABS: ABSOLUTE BASOPHILS # (AUTO) 0.1 10^3/uL (0.0-0.2); ABSOLUTE EOSINOPHILS # (AUTO) 0.1 10^3/uL (0.0-0.6); ABSOLUTE LYMPHOCYTES (AUTO) 1.6 10^3/uL (0.5-4.7); ABSOLUTE MONOCYTES (AUTO) 0.5 10^3/uL (0.1-1.4); ABSOLUTE NEUT (AUTO) 6.8 10^3/uL (1.7-8.2); BASOPHILS % (AUTO) 0.6 % (0-2); EOSINOPHILS % (AUTO) 0.8 % (0-6); HEMATOCRIT 34.3 % (37.9-51.0); HEMOGLOBIN 11.9 g/dL (13.5-17.0); LYMPHOCYTES % (AUTO) 17.3 % (13-45); MEAN CORPUSCULAR HEMOGLOBIN 31.3 pg (27.0-33.4); MEAN CORPUSCULAR HGB CONC 34.5 g/dL (32.0-36.0); MEAN CORPUSCULAR VOLUME 91 fl (80-97); PLATELET COUNT 400 10^3/uL (150-450); RED BLOOD COUNT 3.79 10^6/uL (4.35-5.55); RED CELL DISTRIBUTION WIDTH 13.5 % (11.5-14.0); SEGMENTED NEUTROPHILS % (AUTO) 75.3 % (42-78); TOTAL CELLS COUNTED % (AUTO) 100 %
[2019-11-25 06:04] LABS: ALKALINE PHOSPHATASE 174 U/L (38-126); ANION GAP 9 (5-19); ASPARTATE AMINO TRANSFERASE 52 U/L (17-59); BILIRUBIN,DIRECT 0.4 mg/dL (0.0-0.4); BILIRUBIN,TOTAL 1.5 mg/dL (0.2-1.3); BLOOD UREA NITROGEN 14 mg/dL (7-20); CALCIUM 9.9 mg/dL (8.4-10.2); CARBON DIOXIDE 29 mmol/L (22-30); CHLORIDE 98 mmol/L (98-107); GLUCOSE 107 mg/dL (75-110); POTASSIUM 4.1 mmol/L (3.6-5.0); TOTAL PROTEIN 7.1 g/dL (6.3-8.2)
[2019-11-25] MEDS ORDERED: ONDANSETRON HCL INJ/PF 4 MG/2 ML SDV IV ONE (07:44)
[2019-11-25] MEDS ORDERED: LORAZEPAM INJ 2 MG/1 ML VIAL IV ONE (07:44)
[2019-11-25] MEDS ORDERED: HYDROMORPHONE HCL INJ/PF 2 MG/ML AMPULE IV ONE (07:45)
--- NOTE | 2019-11-25 07:49 | ER Document Report ---
ED General - General Chief Complaint: Post Surgical Pain Stated Complaint: POST SURGICAL KNEE PAIN Time Seen by Provider: 11/24/19 21:20 Primary Care Provider: [facility] [Primary [facility]] - Follow up as needed Notes: 44-year-old male presenting to the emergency department history of recent right knee replacement surgery. States that he ran out of pain medication 3 days ago, he is attempted to contact his providers and the pain management clinic without success. He presented to the emergency department because of severe pain which he rates 10/10. He is also nauseated and very distressed. He has been using Percocet 10 for many years, Dilaudid 2 mg tablets were added to his pain management post surgery. Presently he is out of both medications. TRAVEL OUTSIDE OF THE [place] IN LAST 30 DAYS: No - Related Data Allergies/Adverse Reactions: bee venom protein (honey bee) Allergy (Severe, Verified 11/25/19 08:46) Anaphylaxis acetaminophen [From Percocet] Allergy (Verified 11/25/19 08:46) Hives oxycodone [From Percocet] Allergy (Verified 11/25/19 08:46) Hives Past Medical History - Social History Smoking Status: Unknown if Ever Smoked Family History: Reviewed & Not Pertinent, CAD, Other - Kidney stones - Past Medical History Cardiac Medical History: Reports: Hx Hypertension Denies: Hx Atrial Fibrillation, Hx Congestive Heart Failure, Hx Coronary Artery Disease, Hx Heart Attack, Hx Hypercholesterolemia, Hx Peripheral Vascular Disease, Hx Heart Murmur Pulmonary Medical History: Reports: Hx Asthma Denies: Hx Bronchitis, Hx COPD, Hx Pneumonia, Hx Tuberculosis Neurological Medical History: Reports: Hx Migraine. Denies: Hx Cerebrovascular Accident, Hx Seizures, Hx Parkinson's Disease Endocrine Medical History: Denies: Hx Diabetes Mellitus Type 1, Hx Diabetes Mellitus Type 2 Renal/ Medical History: Reports: Hx Kidney Stones, Hx Renal Insufficiency. Denies: Hx End Stage Renal Disease, Hx Peritoneal Dialysis Malignancy Medical History: Denies Hx Lung Cancer GI Medical History: Reports: Hx Gastroesophageal Reflux Disease. Denies: Hx Cr ohn's Disease, Hx Hepatitis, Hx Hiatal Hernia, Hx Irritable Bowel, Hx Liver Failure, Hx Pancreatitis, Hx Ulcer Musculoskeletal Medical History: Reports Hx Arthritis, Denies Hx Fibromyalgia, Denies Hx Muscular Dystrophy Psychiatric Medical History: Reports: Hx Attention Deficit Hyperactivity Disorder, Hx Post Traumatic Stress Disorder Denies: Hx Bipolar Disorder, Hx Dementia, Hx Depression, Hx Schizophrenia Traumatic Medical History: Denies: Hx Fractures Infectious Medical History: Denies: Hx Hepatitis Past Surgical History: Reports: Hx Orthopedic Surgery - left knee X3, right knee, bilateral carpal tunnel, Other - Patient has cervical and surgery, left knee repair and right knee repair.. Denies: Hx Appendectomy, Hx Bowel Surgery, Hx Cholecystectomy, Hx Colostomy, Hx Gastric Bypass Surgery, Hx Pacemaker, Hx Tonsillectomy - Immunizations Hx Diphtheria, Pertussis, Tetanus Vaccination: Yes Review of Systems - Review of Systems Notes: Constitutional: Negative for fever. HENT: Negative for sore throat. Eyes: Negative for visual changes. Cardiovascular: Negative for chest pain. Respiratory: Negative for shortness of breath. Gastrointestinal: Negative for abdominal pain, vomiting or diarrhea. Genitourinary: Negative for dysuria. Musculoskeletal: See HPI Skin: Negative for rash. Neurological: Negative for headaches, weakness or numbness. 10 point ROS negative except as marked above and in HPI. Physical Exam - Vital signs Vitals: Temp Pulse Resp BP Pulse Ox 99.1 F 99 22 H 140/75 H 97 11/24/19 21:16 11/24/19 21:16 11/24/19 21:16 11/24/19 21:16 11/24/19 21:16 - Notes Notes: PHYSICAL EXAMINATION: Physical Exam: General: Well-nourished well-developed 44-year-old man in moderate distress secondary to pain. HEENT: NC/AT, pupils equal round and reactive to light, MM moist,nares clear, oropharynx clear, airway patent Neck: supple, no adenopathy, no masses. Good range of motion Lungs: clear, no wheezing, no rales no rhonchi CVS: Regular rate and rhythm no murmur gallop or rub Abdomen: Soft, active, nontender, no masses, no hepatosplenomegaly Ext: Right knee, terry in place, no drainage, no signs of infection. Left knee surgical scar from previous knee replacement surgery Neuro: Alert and responsive, moving all 4 extremities on command, cranial nerves intact, no focal findings Skin: Intact no open lesions, no rash PSYCH: Normal mood, normal affect. Course - Vital Signs Vital signs: Temp Pulse Resp BP Pulse Ox 98.1 F 91 16 124/74 97 11/25/19 05:11 11/25/19 08:54 11/25/19 08:54 11/25/19 08:54 11/25/19 08:54 - Laboratory Result Diagrams: 11/25/19 05:00 11/25/19 05:00 Laboratory results interpreted by me: 11/25/19 11/25/19 05:00 05:00 RBC 3.79 L Hgb 11.9 L Hct 34.3 L Sodium 136.1 L Total Bilirubin 1.5 H ALT 61 H Alkaline Phosphatase 174 H 11/25/19 07:49 I have reviewed laboratory data and used this information for the treatment decisions regarding the patient. Discharge - Discharge Clinical Impression: Pain, Opiate dependence, continuous, History of total right knee replacement, PTSD (post-traumatic stress disorder) Condition: Good Disposition: HOME, SELF-CARE Instructions: Pain Management Additional Instructions: Please contact your pain management this morning regarding medications and treatment through the weekend and further. HOME CARE INSTRUCTIONS & INFORMATION: Thank you for choosing us for your me dical needs. We hope you're satisfied with the care you received. After you leave, you must properly care for your problem and, at the same time, observe its progress. Any condition can change. Some illnesses can change rapidly over hours or days. If your condition worsens, return to the Emergency Department or see your physician promptly. ABOUT YOUR X-RAYS AND EKG'S: If you had an EKG or X-rays taken, they have been read by the Emergency Physician. The X-rays and EKG's will also be read by a Radiologist or Bo[facility] Boss within 24 hours. If discrepancies are noted, you will be notified by telephone. Please be certain the ED has a correct telephone number & address where you can be reached. Also, realize that some fractures or abnormalities do not show up on initial X-rays. If your symptoms continue, see your physician. ABOUT YOUR LABORATORY TEST: If you had laboratory tests, the results have been reviewed by the Emergency Physician. Some test results (for example cultures) may not be available for several days. You will be contacted if any test result shows you need additional treatment. Please be certain the ED has a correct telephone number and address where you can be reached. ABOUT YOUR MEDICATIONS: You will receive instructions on how to take your medicine on the prescription label you receive. Additional information may be provided by the Pharmacy. If you have questions afterwards, call the ED for clarification or further instructions. Some prescribed medications may cause drowsiness. Do not perform tasks such as driving a car or operating machinery without consulting your Pharmacist. If you feel you need a refill of pain medication, your condition will need re-evaluation. Please do not call for a refill of any medication. ABOUT YOUR SIGNATURE: Signature of this document acknowledges to followin. Understanding that you received emergency treatment and that you may be released before al medical problems are known or treated. Please be certain the ED has a correct phone number & address where you can be reached. 2. Acknowledgement that you will arrange for follow-up care as recommended. 3. Authorization for the Emergency Physician to provide information to your follow-up Physician in order to maximize your care. AT ANY TIME, IF YOUR SYMPTOMS CHANGE SIGNIFICANTLY OR WORSEN OR YOU DEVELOP NEW SYMPTOMS, RETURN TO THE EMERGENCY DEPARTMENT IMMEDIATELY FOR RE-EVALUATION. OUR GOAL IS TO PROVIDE EXCELLENT MEDICAL CARE! WE HOPE THAT WE HAVE MET YOUR EXPECTATIONS DURING YOUR EMERGENCY DEPARTMENT VISIT AND THAT YOU FEEL YOU HAVE RECEIVED EXCELLENT CARE! [facility]errals: [facility] [Primary Care [facility]] - Follow up as needed
[2019-11-25 08:55] VITALS: BP 124/74
== END 2019-11-25 09:18 | disposition home or self-care (01) ==
LOC: ER 21:08
DX: M25.561 Pain in right knee (principal); F11.20 Opioid dependence, uncomplicated; R11.0 Nausea; F43.10 Post-traumatic stress disorder, unspecified; I10 Essential (primary) hypertension; J45.909 Unspecified asthma, uncomplicated; Z96.653 Presence of artificial knee joint, bilateral; Z87.892 Personal history of anaphylaxis; Z91.030 Bee allergy status; Z88.8 Allergy status to other drugs, medicaments and biological substances; Z88.6 Allergy status to analgesic agent; Z88.5 Allergy status to narcotic agent
CPT/HCPCS: 99285; 96374; 96375; 36415; 85025; 80053; 93971; 71045; J1170; J2060; J2405

== ENCOUNTER 2019-11-30 17:31 | Emergency (ER) | payer OTHER ==
[2019-11-30 17:39] VITALS: BP 120/65
== END 2019-11-30 18:13 | disposition left against medical advice (07) ==
LOC: ER 17:31
DX: Z53.21 Procedure and treatment not carried out due to patient leaving prior to being seen by health care provider (principal)

== ENCOUNTER → 2019-12-09 | Outpatient (CLI) | payer OTHER ==
--- NOTE | 2019-12-09 14:07 | RADIOLOGY REPORT (SQ) ---
EXAM DESCRIPTION: VENOUS UNILATERAL LOWER IMAGES COMPLETED DATE/TIME: 12/09/2019 1:54 pm REASON FOR STUDY: RLE PAIN M79.661 PAIN IN RIGHT LOWER LEG COMPARISON: 11/24/2019 TECHNIQUE: Dynamic and static moser scale and color images acquired of the right arm venous system. S elected spectral images acquired with additional compression and augmentation maneuvers. The contrala teral subclavian vein and internal jugular vein were also imaged. Images stored on PACS. LIMITATIONS: None. FINDINGS: INTERNAL JUGULAR VEIN: Normal phasicity, compression, augmentation. No visualized echogeni c material on moser scale. No defects on color images. Comparison opposite side normal. SUBCLAVIAN VEIN: Normal compression, augmentation. No visualized echogenic material on moser scale. No defects on color images. AXILLARY VEIN: Normal compression, augmentation. No visualized echogenic material on moser scale. No d efects on color images. BRACHIAL VEIN: Normal compression, augmentation. No visualized echogenic material on moser scale. No d efects on color images. BASILIC VEIN: Normal compression, augmentation. No visualized echogenic material on moser scale. No de fects on color images. CEPHALIC VEIN: Normal compression, augmentation. No visualized echogenic material on moser scale. No d efects on color images. OTHER: No other significant finding. CONTRALATERAL SUBCLAVIAN VEIN AND INTERNAL JUGULAR VEIN: Normal phasicity, compression and augmentation. No visualized echogenic material on moser scale. No de fects on color images. IMPRESSION: NO EVIDENCE DVT OR SVT IN THE RIGHT ARM. TECHNICAL DOCUMENTATION: JOB ID: [id number] 2010 [employer]- All Rights Reserved Reading location - IP/workstation name: [email or web address]
== END ==
LOC: SP 13:05
PROVIDERS: ATTEND Orthopaedic Surgery
DX: M79.661 Pain in right lower leg (principal)
CPT/HCPCS: 93971